=== PATIENT | female | born 1950 | race African-American/Black ===

== ENCOUNTER 2017-07-03 07:50 | Outpatient (CLI) | payer MEDICARE, MEDICAID ==
--- NOTE | 2017-07-03 10:26 | ULT ---
BILATERAL RENAL ULTRASOUND: Date: 07/03/17 COMPARISON: None. HISTORY: Hematuria. TECHNIQUE: Multiplanar Charlton scale sonographic imaging of the kidneys and urinary bladder obtained. FINDINGS: Right kidney measures 10.0 x 5.2 x 5.1 cm. Left kidney measures 10.6 x 5.0 x 5.3 cm. There is no renal mass, hydronephrosis, or renal stone seen on either side. Provided images of the urinary bladder appear grossly unremarkable. Secondary to patient body habitus, detailed assessment of both kidneys and the urinary bladder is so mewhat limited. IMPRESSION: Grossly unremarkable renal ultrasound. POS: [facility]
== END 2017-07-03 07:51 | disposition home or self-care (01) ==
LOC: ULT 07:50
PROVIDERS: ATTEND Family Medicine
DX: R31.29 Other microscopic hematuria (principal)
CPT/HCPCS: 76770

== ENCOUNTER 2017-07-17 13:03 | Outpatient (CLI) | payer MEDICARE, MEDICAID ==
--- NOTE | 2017-07-17 18:55 | ULT ---
PELVIC SONOGRAM TRASABDOMINAL AND TRANSVAGINAL IMAGING: History: Microhematuria. FINDINGS: Urinary bladder is decompressed. Uterus has a heterogeneous echotexture and is 8.7 cm in length. Endo metrium is 1.0 cm thickness. Fluid distending the cervical canal is 0.6 cm in AP diameter. No free fluid is evident within the pelvis. Neither ovary is well visualized with transabdominal or t ransvaginal imaging. No adnexal masses are apparent. IMPRESSION: Fluid within the cervical canal. Cause is not evident. No other significant abnormalities are demonst rated. POS: [facility]
== END 2017-07-17 13:04 | disposition home or self-care (01) ==
LOC: ULT 13:03
PROVIDERS: ATTEND Family Medicine
DX: R31.29 Other microscopic hematuria (principal)
CPT/HCPCS: 76856

== ENCOUNTER 2018-02-24 03:58 | Emergency (ER) | payer MEDICARE, MEDICAID ==
[2018-02-24 04:29] LABS: #Monocytes 0.2 thou/uL (0.11-0.59); #Neutrophils 2.3 thou/uL (1.40-6.50); %Basophils 0.3 % (0.0-1.0); %Eosinophils 0.9 % (0.0-10.0); %Lymphocytes 28.2 % (21.0-51.0); %Monocytes 6.4 % (0.0-10.0); %Neutrophils 64.2 % (42.0-75.0); Hemoglobin 10.9 g/dL (12.0-16.0); Mean Corpuscular HGB CONC 32.8 g/dL (32.0-36.0); Mean Corpuscular Hemoglobin 28.4 pg (27.0-31.0); Mean Corpuscular Volume 86.7 fL (78.0-98.0); Platelet Count 122 thou/uL (130-400); RBC Distribution Width 15.1 % (11.5-14.5); Red Blood Cell (RBC) Count 3.83 mill/uL (4.20-5.40); White Blood Cell (WBC) Count 3.6 thou/uL (4.8-10.8)
[2018-02-24 05:34] LABS: Troponin I 0.016 ng/mL (< 0.028)
[2018-02-24 05:36] LABS: ALT (SGPT) 17 U/L (8-55); AST (SGOT) 19 U/L (5-34); Albumin 3.5 g/dL (3.4-4.8); Alkaline Phosphatase 90 U/L (40-150); Anion Gap 15 mmol/L (10-20); BUN (Urea Nitrogen) 46 mg/dL (9.8-20.1); Bilirubin, Total 0.3 mg/dL (0.2-1.2); CK (CPK) 179 U/L (29-168); Calc. Creatinine Clearance 0 mL/min (70-130); Calcium 9.1 mg/dL (7.8-10.44); Carbon Dioxide 22 mmol/L (23-31); Chloride 106 mmol/L (98-107); Estimated GFR-MDRD 20; Globulin 4.4 g/dL (2.4-3.5); Glucose 251 mg/dL (80-115); Lipase 22 U/L (8-78); Potassium 5.5 mmol/L (3.5-5.1); Protein, Total 7.9 g/dL (6.0-8.3); Sodium 137 mmol/L (136-145)
[2018-02-24] MEDS ORDERED: Insulin Regular 300 UNITS/3 ML VIAL ONE (06:09)
[2018-02-24] MEDS ORDERED: Furosemide 40 MG/4 ML VIAL ONE (06:09)
[2018-02-24] MEDS ORDERED: Dextrose 50% Abboject 50 ML SYRINGE ONE (06:09)
[2018-02-24 07:49] LABS: Anion Gap 12 mmol/L (10-20); BUN (Urea Nitrogen) 46 mg/dL (9.8-20.1); Calc. Creatinine Clearance 0 mL/min (70-130); Calcium 9.1 mg/dL (7.8-10.44); Carbon Dioxide 23 mmol/L (23-31); Chloride 106 mmol/L (98-107); Estimated GFR-MDRD 20; Glucose 289 mg/dL (80-115); Potassium 5.2 mmol/L (3.5-5.1); Sodium 136 mmol/L (136-145)
--- NOTE | 2018-02-24 08:21 | RAD ---
FRONTAL VIEW CHEST: COMPARISON: 10/11/15. INDICATION: Dyspnea. FINDINGS: Lungs are clear. Cardiac silhouette remains prominent. Added density of the body wall soft tissues does decrease penetration and limit sensitivity of evaluation. IMPRESSION: Stable chest. POS: [facility]
== END 2018-02-24 08:37 | disposition home or self-care (01) ==
LOC: ERS 03:58
DX: E11.22 Type 2 diabetes mellitus with diabetic chronic kidney disease (principal); I13.2 Hypertensive heart and chronic kidney disease with heart failure and with stage 5 chronic kidney disease, or end stage renal disease; I50.9 Heart failure, unspecified; N18.9 Chronic kidney disease, unspecified; E03.9 Hypothyroidism, unspecified; E87.5 Hyperkalemia; Z79.4 Long term (current) use of insulin; Z79.899 Other long term (current) drug therapy
CPT/HCPCS: 36415; 71045; 80053; 82553; 83690; 83880; 84484; 85025; 93005; 96374; 96375; J1815; J1940

== ENCOUNTER 2020-06-04 12:08 | Inpatient (IN) | payer MEDICARE, MEDICAID ==
--- NOTE | 2020-06-04 13:03 | RAD ---
XR Chest 1 View Portable HISTORY: CHF COMPARISON: 02/24/2018 FINDINGS: The heart size is enlarged but stable. The lungs are well expanded without focal areas of c onsolidation, magda pulmonary edema pneumothorax or pleural effusions. IMPRESSION: No radiographic evidence of acute cardiopulmonary process.
[2020-06-04 13:09] LABS: #Eosinphils 0.1 thou/uL (0.0-0.7); #Lymphocytes 0.4 thou/uL (1.20-3.40); #Monocytes 0.3 thou/uL (0.11-0.59); #Neutrophils 2.5 thou/uL (1.40-6.50); %Basophils 0.8 % (0.0-1.0); %Eosinophils 1.6 % (0.0-10.0); %Lymphocytes 11.3 % (21.0-51.0); %Monocytes 9.7 % (0.0-10.0); %Neutrophils 76.6 % (42.0-75.0); Hemoglobin 12.7 g/dL (12.0-16.0); Mean Corpuscular HGB CONC 33.3 g/dL (32.0-36.0); Mean Corpuscular Hemoglobin 28.9 pg (27.0-31.0); Mean Corpuscular Volume 86.6 fL (78.0-98.0); Mean Platelet Volume 10.6 fL (7.4-10.4); Platelet Count 104 thou/uL (130-400); Red Blood Cell (RBC) Count 4.39 mill/uL (4.20-5.40); White Blood Cell (WBC) Count 3.2 thou/uL (4.8-10.8)
[2020-06-04 13:49] LABS: ALT (SGPT) Less than 7 U/L (8-55); AST (SGOT) 11 U/L (5-34); Albumin 3.3 g/dL (3.4-4.8); Alkaline Phosphatase 71 U/L (40-110); Anion Gap 12 mmol/L (10-20); BUN (Urea Nitrogen) 24 mg/dL (9.8-20.1); Bilirubin, Total 0.9 mg/dL (0.2-1.2); Calc. Creatinine Clearance 0 mL/min (70-130); Calcium 8.7 mg/dL (7.8-10.44); Carbon Dioxide 24 mmol/L (23-31); Chloride 106 mmol/L (98-107); Estimated GFR-MDRD 17; Globulin 3.4 g/dL (2.4-3.5); Glucose 181 mg/dL (80-115); Potassium 4.6 mmol/L (3.5-5.1); Protein, Total 6.7 g/dL (6.0-8.3); Sodium 137 mmol/L (136-145)
[2020-06-04 14:18] LABS: CKMB 0.8 ng/mL (0-6.6)
[2020-06-04] MEDS ORDERED: Furosemide 40 MG/4 ML VIAL ONE (14:25)
[2020-06-04 15:26] LABS: Bacteria/HPF 4+ HPF (None Seen); Bilirubin Negative (Negative); Blood, Urine 3+ (Negative); Clarity Turbid (Clear); Glucose, Urine (Dipstick) Normal (Negative); Ketone, Urine Negative (Negative); Leukocyte 500 Leu/uL (Negative); Nitrite Negative (Negative); Protein, Urine (Dipstick) 70 mg/dL (Neg-Trace); RBC/HPF 21-50 HPF (0-3); Specific Gravity, Urine 1.007 (1.002-1.036); Squamous Epithelial 0-3 HPF (0-3); Urobilinogen Normal mg/dL (Less than 2); WBC/HPF Greater than 50 HPF (0-3); pH, Urine 5.5 (5.0-9.0)
--- NOTE | 2020-06-04 16:22 | PDOC.HHP ---
Hospitalist HPI - History of Present Illness Bilateral leg swelling History of Present Illness: This is a 69-year-old female patient with a history of CHF, diabetes mellitus type 2, hypertension hypothyroidism and blindness who presents with worsening swelling of her feet bilaterally and easy fatigability. Symptoms started for the past couple of weeks but however have become worse over the past 2 days. She however denies any associated chest pain or shortness of breath. No orthopnea or paroxysmal nocturnal dyspnea. She notes having been on Lasix however has not been consistently taking it. She she also notes partial adherence to her salt restriction. She however does not smoke or drink. She complains of ongoing constipation however denies any dysuria frequency. She is legally blind from diabetic retinopathy. On presentation blood pressure was 152/98, pulse 80, respiratory rate 20, temp erature 97, saturating 95 on room air. Troponin was 0.084, BNP was 3871, urine was cloudy with WBC 750, nitrates negative and bacteria 4+. BUN was elevated at 24 with creatinine at 2.75 which is her baseline. She had a leukocytosis of 3.2, platelet count of 104. Chest x-ray showed no radiological evidence of cardiopulmonary process. She received 40 mg Lasix in the ED prior to hospitalist consultation for admission. Hospitalist ROS - Review of Systems Constitutional: denies: fever, chills, sweats Eyes: reports: vision change. denies: pain Cardiovascular: denies: chest pain, palpitations, orthopnea, paroxysmal noc. dyspnea Gastrointestinal: reports: constipation. denies: nausea, vomiting, abdominal pain Genitourinary: denies: dysuria, frequency, incontinence - Medication Medications: has to be verified. Allergies: No known drug allergies Hospitalist History - Past Medical History Cardiac: reports: CHF Endocrine: reports: Diabetes Other Medical History: Blindness - Past Surgical History Past Surgical History: reports: Cholecystectomy - Family History Family History: reports: diabetes mellitus - Social History Smoking Status: Current every day smoker Alcohol: reports: None Activity level: wheelchair bound - Exam General Appearance: awake alert General - other findings: In no acute distress Eye - other findings: Blind bilaterally Heart: RRR, no murmur, no gallops, no rubs Respiratory: no wheezes, no rales, no ronchi, no tachypnea Gastrointestinal: soft, non-tender, non-distended, normal bowel sounds Extremities: no cyanosis, no clubbing Extremities - other findings: 2+ bilateral pitting pedal edema Neurological: cranial nerve grossly intact, no weakness Neurological - other findings: Bilateral blind Psychiatric: A&O x 3 Hospitalist Results - Labs Result Diagrams: 06/04/20 12:42 06/04/20 12:42 Lab results: WBC 3.2 thou/uL (4.8-10.8) L 06/04/20 12:42 Hgb 12.7 g/dL (12.0-16.0) 06/04/20 12:42 Hct 38.0 % (36.0-47.0) 06/04/20 12:42 MCV 86.6 fL (78.0-98.0) 06/04/20 12:42 Plt Count 104 thou/uL (130-400) L 06/04/20 12:42 Neutrophils % 76.6 % (42.0-75.0) H 06/04/20 12:42 Sodium 137 mmol/L (136-145) 06/04/20 12:42 Potassium 4.6 mmol/L (3.5-5.1) 06/04/20 12:42 Chloride 106 mmol/L (98-107) 06/04/20 12:42 Carbon Dioxide 24 mmol/L (23-31) 06/04/20 12:42 BUN 24 mg/dL (9.8-20.1) H 06/04/20 12:42 Creatinine 2.75 mg/dL (0.6-1.1) H 06/04/20 12:42 Glucose 181 mg/dL (80-115) H 06/04/20 12:42 Calcium 8.7 mg/dL (7.8-10.44) 06/04/20 12:42 Total Bilirubin 0.9 mg/dL (0.2-1.2) 06/04/20 12:42 AST 11 U/L (5-34) 06/04/20 12:42 ALT Less than 7 U/L (8-55) L 06/04/20 12:42 Alkaline Phosphatase 71 U/L (40-110) 06/04/20 12:42 CK-MB (CK-2) 0.8 ng/mL (0-6.6) 06/04/20 12:42 Troponin I 0.084 ng/mL (< 0.028) H 06/04/20 12:42 B-Natriuretic Peptide 3871.7 pg/mL (0-100) H 06/04/20 12:42 Serum Total Protein 6.7 g/dL (6.0-8.3) 06/04/20 12:42 Albumin 3.3 g/dL (3.4-4.8) L 06/04/20 12:42 Urine Ketones Negative mg/dL (Negative) 06/04/20 14: Urine Blood 3+ (Negative) A 06/04/20 14:28 Urine Nitrite Negative (Negative) 06/04/20 14:28 Ur Leukocyte Esterase 500 Lang/uL (Negative) A 06/04/20 14: Urine RBC 21-50 HPF (0-3) A 06/04/20 14: Urine WBC Greater than 50 HPF (0-3) A 06/04/20 14:28 Ur Squamous Epith Cells 0-3 HPF (0-3) 06/04/20 14:28 Urine Bacteria 4+ HPF (None Seen) A 06/04/20 14:28 Hospitalist H&P A/P - Plan Plan: This a 69-year-old female patient with a history of diabetes mellitus, CHF presenting with increasing swelling of her legs bilaterally with increasing fatigability. She will be admitted for heart failure exacerbation and cardiac monitoring Acute heart failure exacerbation History of heart failure however no recent echo on file Continue diuresis on Lasix Monitor electrolytes Daily weights Input output monitoring Low-sodium diet Echocardiogram in a.m. resume guidline directed meds once verified and indicated Consider cardiology consult in a.m. if indicated Leukopeniamild WBC 3.2 Unclear etiologywe will repeat CBC in the a.m. thrombocytopenia Platelet 104 Repeat BMP in a.m. Hypertension Start valsartan Restart other home BP medications once verified Blood pressure monitoring. Blindness Secondary to diabetes mellitusretinopathy Hypothyroidism TSH TSH 1.27 on 10/01/2019 Diabetes mellitus A1c 7.3 on 10/01/2019 Start correctional insulin -CKD Stable No acute VT prophylaxisLovenox
[2020-06-04] MEDS ORDERED: Dextrose 5% in Water 1,000 ML IV PRN (17:30)
[2020-06-04] MEDS ORDERED: Dextrose 50% Abboject 50 ML SYRINGE SLOW IVP PRN (17:30)
[2020-06-04] MEDS: Heparin 5,000 UNITS/ML VIAL SC SCH (22:33)
[2020-06-05] MEDS: Bisacodyl 5 MG TAB PO PRN (04:05)
[2020-06-05 04:17] LABS: #Eosinphils 0.1 thou/uL (0.0-0.7); #Lymphocytes 0.7 thou/uL (1.20-3.40); #Monocytes 0.4 thou/uL (0.11-0.59); #Neutrophils 1.7 thou/uL (1.40-6.50); %Basophils 0.4 % (0.0-1.0); %Eosinophils 2.2 % (0.0-10.0); %Lymphocytes 23.4 % (21.0-51.0); %Monocytes 14.4 % (0.0-10.0); %Neutrophils 59.6 % (42.0-75.0); Hemoglobin 11.8 g/dL (12.0-16.0); Mean Corpuscular HGB CONC 31.3 g/dL (32.0-36.0); Mean Corpuscular Hemoglobin 27.2 pg (27.0-31.0); Mean Platelet Volume 10.1 fL (7.4-10.4); Platelet Count 98 thou/uL (130-400); RBC Distribution Width 16.9 % (11.5-14.5); Red Blood Cell (RBC) Count 4.33 mill/uL (4.20-5.40); White Blood Cell (WBC) Count 2.9 thou/uL (4.8-10.8)
[2020-06-05 04:37] LABS: Anion Gap 13 mmol/L (10-20); BUN (Urea Nitrogen) 23 mg/dL (9.8-20.1); Calc. Creatinine Clearance 48 mL/min (70-130); Calcium 9.1 mg/dL (7.8-10.44); Carbon Dioxide 24 mmol/L (23-31); Chloride 106 mmol/L (98-107); Estimated GFR-MDRD 18; Glucose 116 mg/dL (80-115); Potassium 4.1 mmol/L (3.5-5.1); Sodium 139 mmol/L (136-145)
[2020-06-05] MEDS: Furosemide 40 MG/4 ML VIAL SLOW IVP SCH ×2 (05:56→14:37)
[2020-06-05] MEDS: Magnesium Oxide 250 MG TAB PO SCH (08:40)
[2020-06-05] MEDS: Carvedilol 6.25 MG TAB PO SCH (08:40)
[2020-06-05] MEDS: Clopidogrel Bisulfate 75 MG TAB PO SCH (08:40)
[2020-06-05] MEDS: Heparin 5,000 UNITS/ML VIAL SC SCH ×3 (08:40→21:50)
[2020-06-05] MEDS ORDERED: Valsartan 80 MG TAB PO SCH (09:00)
[2020-06-05] MEDS: HumuLIN 70/30 (300 UNITS/3 ML VIAL) SC SCH ×2 (09:30→21:52)
[2020-06-05] MEDS: HumaLOG 300 UNITS/3 ML VIAL SC PRN (11:35)
[2020-06-05] MEDS ORDERED: Fleet Enema 133 ML BOT PR SCH (12:45)
--- NOTE | 2020-06-05 12:54 | PDOC.HOSPP ---
- Subjective Encounter Date: 06/05/20 Encounter Time: 12:52 Subjective: Ms. Yepez was seen today in follow-up of lower extremity edema. Her major concern now is constipation. She is complaining of abdominal cramping, and not being able to pass stool, but feels a strong urge. - Objective Vital Signs & Weight: Vital Signs (12 hours) Temp Pulse Resp BP Pulse Ox 06/05/20 11:28 97.8 F 76 18 137/81 96 06/05/20 07:30 97.7 F 70 18 158/72 H 97 06/05/20 04:00 97.7 F 68 20 159/76 H 98 Weight Weight 322 lb I&O: 06/04/20 06/05/20 06/06/20 06:59 06:59 06:59 Intake Total 180 Output Total 550 Balance -370 Result Diagrams: 06/05/20 04:01 06/05/20 04:01 Additional Labs: Accuchecks 06/05/20 06/05/20 06/04/20 10:34 05:58 21:57 POC Glucose 157 H 112 H 105 H Hospitalist ROS - Medication Medications: Active Medications Generic Name Dose Route Start Last Admin Trade Name Freq PRN Reason Stop Dose Admin Bisacodyl 5 mg 06/04/20 23:06 06/05/20 04:05 Bisacodyl 5 Mg Tab PO 5 mg DAILYPRN PRN Administration Constipation Carvedilol 6.25 mg 06/05/20 09:00 06/05/20 08:40 Carvedilol 6.25 Mg Tab PO 6.25 mg DAILY GLENN Administration Clopidogrel Bisulfate 75 mg 06/05/20 09:00 06/05/20 08:40 Clopidogrel Bisulfate 75 Mg Tab PO 75 mg DAILY GLENN Administration Furosemide 40 mg 06/05/20 06:00 06/05/20 05:56 Furosemide 40 Mg/4 Ml Vial SLOW IVP 40 mg 0600,1400 GLENN Administration Heparin Sodium (Porcine) 5,000 units 06/04/20 21:00 06/05/20 08:40 Heparin 5,000 Units/Ml Vial SC Not Given TID GLENN Insulin Human Isoph/Insulin Regular 10 units 06/05/20 09:00 06/05/20 09:30 Humulin 70/30 (300 Units/3 Ml Vial) SC 10 unit BID GLENN Administration Insulin Human Lispro 0 units 06/04/20 17:30 06/05/20 11:35 Humalog 300 Units/3 Ml Vial SC 2 unit .MILD SLIDING SCALE PRN Administration Mild Correctional Scale Magnesium Oxide 250 mg 06/05/20 09:00 06/05/20 08:40 Magnesium Oxide 250 Mg Tab PO 250 mg DAILY GLENN Administration Sodium Biphosphate/Sodium Phosphate 133 ml 06/05/20 12:45 06/05/20 12:49 Fleet Enema 133 Ml Bot MO 06/05/20 14:45 133 ml NOW GLENN Administration - Exam Eye: PERRL, anicteric sclera Heart: RRR, no murmur, no gallops, no rubs, normal peripheral pulses Respiratory: CTAB, no wheezes, no rales, no ronchi, normal chest expansion Gastrointestinal: soft, non-tender, non-distended, normal bowel sounds, no palpa ble masses, no hepatomegaly Extremities: 1+ LE edema Hosp A/P (1) Constipation Code(s): K59.00 - CONSTIPATION, UNSPECIFIED Status: Acute (2) Acute on chronic systolic (congestive) heart failure Code(s): I50.23 - ACUTE ON CHRONIC SYSTOLIC (CONGESTIVE) HEART FAILURE Status: Acute (3) Blindness - both eyes Code(s): H54.0 - BLINDNESS, BOTH EYES * DO NOT USE * Status: Chronic (4) Diabetes mellitus type 2 Code(s): E11.9 - TYPE 2 DIABETES MELLITUS WITHOUT COMPLICATIONS Status: Acute (5) Chronic kidney disease, stage 4 (severe) Code(s): N18.4 - CHRONIC KIDNEY DISEASE, STAGE 4 (SEVERE) Status: Chronic (6) UTI (urinary tract infection) Status: Acute - Plan * Acute on chronic systolic heart failure- She does not know what her baseline EF is. She does not have a defibrillator- Will consult Cardiology * She normally sees Dr. Mcclelland- will request his records * Constipation-tells me this is chronic, nd she has had a colonoscopy before- will treat symptomatically * DM- blood glucose is stable * UTI- will start Rocephin, and await culture results
[2020-06-05] MEDS: cefTRIAXone\\ROCEPHIN 1 GM in Sodium Chloride 0.9% 100 ML IVPB SCH (14:36)
[2020-06-05] MEDS: Polyethylene Glycol 3350 17 GM Packet PO PRN (14:38)
--- NOTE | 2020-06-05 18:43 | CON ---
DATE OF CONSULTATION: 06/05/2020 REASON FOR CONSULTATION: Congestive heart failure, systolic, acute on chronic. PRIMARY ANDROID ARCHITECT: Dr. Rob Menendez. HISTORY OF PRESENT ILLNESS: Ms. Yepez is a very pleasant 69-year-old woman. The patient came to the hospital with difficulty breathing. The patient had been doing fairly well, but then she was aware that her renal function was impaired. She apparently stopped taking the diuretics a couple of weeks ago. She came to the hospital with increasing shortness of breath, markedly increased BNP, and urinary tract infection with 4+ bacteria. BUN is 24, creatinine 2.75, which is near her baseline. Chest x-ray showed no acute changes. She received Lasix in the ED. She had no chest pain or pressure. PAST HISTORY: 1. She said she has had about 3 heart catheterizations, has no significant coronary artery disease. 2. Congestive heart failure. 3. Diabetes. 4. Blindness. SURGICAL HISTORY: Previous cholecystectomy. FAMILY HISTORY: Diabetes. SOCIAL HISTORY: She smokes. Alcohol, none. REVIEW OF SYSTEMS: CONSTITUTIONAL: No significant weight gain. She has lost about 60 pounds over the last several years. VISION: No changes. HEARING: No changes. PULMONARY: No cough or wheezing. GASTROINTESTINAL: No nausea, vomiting, or diarrhea. SKIN: No rashes. NEUROLOGIC: No unilateral weakness or numbness. PSYCHIATRIC: No unusual depression or anxiety. PHYSICAL EXAMINATION: GENERAL: This is a pleasant elderly woman, resting comfortably. VITAL SIGNS: Blood pressure 137/80, pulse 76 and regular. LUNGS: Clear. CARDIAC: Normal S1, normal S2. ABDOMEN: Obese, nontender. EXTREMITIES: Warm, dry. No clubbing. No cyanosis. There is wljr-[id number] edema. PERTINENT LABORATORY DATA: Creatinine is 2.6, which is stable. Her GFR is 18. BNP 3871.7. DIAGNOSTIC STUDIES: Echocardiogram, technically difficult. The ejection fraction is estimated about 20% to 25%. Global hypokinesis. Moderate to severely elevated pulmonary pressure. EKG 12-lead is not on the chart from environmental monitoring specialist, looks like she likely has a left bundle-branch block. We will try to locate her EKG. ASSESSMENT: 1. Congestive heart failure, systolic, acute on chronic. 2. Stage IV renal failure. 3. Morbid obesity. 4. What looks to be likely a left bundle-branch block on EKG, but the official EKG is not on the chart. PLAN: 1. We will try to locate her recent EKG. 2. Continue diuretics. 3. Need to consider defibrillator implantation if she has a left bundle-branch block, consideration for a biventricular device. 4. CASS inhibitors contraindicated with stage IV renal failure. Hopefully home tomorrow. She will need to follow up with Dr. Menendez. ADDENDUM EKG LOCATED HAS LBBB, CANDIDATE FOR BI VENTRICULAR AICD, NEEDS UTI TREATED FIRST, WILL DISCUSS KELTON MUNOZ. Job ID: [id number] EBENEZER
[2020-06-05] MEDS: Senokot 8.6 MG TAB PO PRN (21:47)
[2020-06-05] MEDS: Atorvastatin Calcium 10 MG TAB PO SCH (21:47)
[2020-06-05] MEDS: Nystatin Powder 15 GM BOT TOP PRN (21:57)
[2020-06-06] MEDS: Levothyroxine Sodium 50 MCG TAB PO SCH (06:16)
[2020-06-06] MEDS: Furosemide 40 MG/4 ML VIAL SLOW IVP SCH ×2 (06:16→15:38)
[2020-06-06] MEDS: Heparin 5,000 UNITS/ML VIAL SC SCH ×3 (08:25→21:54)
[2020-06-06] MEDS: Carvedilol 6.25 MG TAB PO SCH ×2 (08:37→17:27)
[2020-06-06] MEDS: Clopidogrel Bisulfate 75 MG TAB PO SCH (08:37)
[2020-06-06] MEDS: Magnesium Oxide 250 MG TAB PO SCH (08:37)
[2020-06-06] MEDS: Nystatin Powder 15 GM BOT TOP PRN ×2 (08:38→21:52)
[2020-06-06] MEDS: Bisacodyl 5 MG TAB PO PRN (08:41)
--- NOTE | 2020-06-06 11:04 | EKG ---
Test Reason : Blood Pressure : / mmHG Vent. Rate : 076 BPM Atrial Rate : 076 BPM P-R Int : 132 ms QRS Dur : 166 ms QT Int : 470 ms P-R-T Axes : 054 003 178 degrees QTc Int : 528 ms Normal sinus rhythm Left bundle branch block Abnormal ECG No change since 2017 Confirmed by YASH SANDOVAL DO ([id number]), news editor EMILI DURAN ([id number]) on 06/06/2020 11:04:35 AM Referred By: Confirmed By:YASH SANDOVAL DO
--- NOTE | 2020-06-06 12:17 | PDOC.HOSPP ---
- Subjective Encounter Date: 06/06/20 Encounter Time: 09:20 Subjective: feels better, her edema in the legs has resolved no chest pain walks with walker at home - Objective Vital Signs & Weight: Vital Signs (12 hours) Temp Pulse Resp BP Pulse Ox 06/06/20 08:00 96 06/06/20 07:47 97.9 F 75 22 H 181/87 H 96 06/06/20 04:00 98.6 F 75 18 168/74 H 96 Weight Admit Weight 322 lb Weight 319 lb 3.2 oz I&O: 06/05/20 06/06/20 06/07/20 06:59 06:59 06:59 Intake Total 180 350 Output Total 550 450 Balance -370 -100 Result Diagrams: 06/05/20 04:01 06/05/20 04:01 Additional Labs: Accuchecks 06/06/20 06/06/20 06/05/20 06:26 01:47 21:09 POC Glucose 152 H 93 125 H 06/05/20 17:03 POC Glucose 132 H Hospitalist ROS - Medication Medications: Active Medications Generic Name Dose Route Start Last Admin Trade Name Freq PRN Reason Stop Dose Admin Atorvastatin Calcium 10 mg 06/05/20 21:00 06/05/20 21:47 Atorvastatin Calcium 10 Mg Tab PO 10 mg HS GLENN Administration Bisacodyl 5 mg 06/04/20 23:06 06/06/20 08:41 Bisacodyl 5 Mg Tab PO 5 mg DAILYPRN PRN Administration Constipation Clopidogrel Bisulfate 75 mg 06/05/20 09:00 06/06/20 08:37 Clopidogrel Bisulfate 75 Mg Tab PO 75 mg DAILY GLENN Administration Furosemide 40 mg 06/05/20 06:00 06/06/20 06:16 Furosemide 40 Mg/4 Ml Vial SLOW IVP 40 mg 0600,1400 GLENN Administration Heparin Sodium (Porcine) 5,000 units 06/04/20 21:00 06/06/20 08:25 Heparin 5,000 Units/Ml Vial SC Not Given TID GLENN Ceftriaxone Sodium 1 gm/ 100 mls @ 200 mls/hr 06/05/20 13:00 06/05/20 14:36 Sodium Chloride IVPB 100 mls Q24HR GLENN Administration Insulin Human Isoph/Insulin Regular 10 units 06/05/20 09:00 06/05/20 21:52 Humulin 70/30 (300 Units/3 Ml Vial) SC Not Given BID [facility] Insulin Human Lispro 0 units 06/04/20 17:30 06/05/20 11:35 Humalog 300 Units/3 Ml Vial SC 2 unit .MILD SLIDING SCALE PRN Administration Mild Correctional Scale Levothyroxine Sodium 50 mcg 06/06/20 06:00 06/06/20 06:16 Levothyroxine Sodium 50 Mcg Tab PO 50 mcg 0600 GLENN Administration Magnesium Oxide 250 mg 06/05/20 09:00 06/06/20 08:37 Magnesium Oxide 250 Mg Tab PO 250 mg DAILY GLENN Administration Nystatin 0 gm 06/04/20 22:59 06/06/20 08:38 Nystatin Powder 15 Gm Bot TOP 1 applic BID PRN Administration Topical Irritations Polyethylene Glycol 17 gm 06/05/20 12:37 06/05/20 14:38 Polyethylene Glycol 3350 17 Gm Packet PO 17 gm DAILYPRN PRN Administration Constipation Senna 2 tab 06/04/20 23:06 06/05/20 21:47 Senokot 8.6 Mg Tab PO 2 tab HSPRN PRN Administration Constipation - Exam General Appearance: awake alert Eye: PERRL, anicteric sclera ENT: no oropharyngeal lesions, moist mucosa Neck: supple, no JVD Heart: RRR, no murmur Respiratory: no wheezes, no rales Gastrointestinal: soft, non-tender, non-distended, normal bowel sounds Extremities: no cyanosis, no edema Neurological: cranial nerve grossly intact, no focal deficits Psychiatric: normal affect, A&O x 3 Hosp A/P (1) Acute on chronic systolic (congestive) heart failure Code(s): I50.23 - ACUTE ON CHRONIC SYSTOLIC (CONGESTIVE) HEART FAILURE Status: Acute (2) HTN (hypertension) Code(s): I10 - ESSENTIAL (PRIMARY) HYPERTENSION Status: Chronic Qualifiers: Hypertension type: essential hypertension Qualified Code(s): I10 - Essential (primary) hypertension (3) Morbid obesity with BMI of 50.0-59.9, adult Code(s): E66.01 - MORBID (SEVERE) OBESITY DUE TO EXCESS CALORIES; Z68.43 - BODY MASS INDEX [BMI] 50.0-59.9, ADULT Status: Chronic (4) UTI (urinary tract infection) Status: Acute Qualifiers: Urinary tract infection type: acute cystitis Hematuria presence: without hematuria Qualified Code(s): N30.00 - Acute cystitis without hematuria (5) Chronic kidney disease, stage 4 (severe) Code(s): N18.4 - CHRONIC KIDNEY DISEASE, STAGE 4 (SEVERE) Status: Chronic (6) Diabetes mellitus type 2 Code(s): E11.9 - TYPE 2 DIABETES MELLITUS WITHOUT COMPLICATIONS Status: Chronic (7) Blindness - both eyes Code(s): H54.0 - BLINDNESS, BOTH EYES * DO NOT USE * Status: Chronic - Plan is on lasix, coreg, plavix, 70/30 insulin, lipitor and ceftriaxone d/w patient and daughter over phone, they both will discuss and let us know abou t aicd/barrel header uti with klebsiella, will continue ceftriaxone for now, on dc will change to cipro she needs to mobilize more, has bmi of 53 she had seen 3 weeks back per patient hemostable may switch to oral lasix if patient is planning to get aicd/barrel header and contrast.
[2020-06-06] MEDS: HumuLIN 70/30 (300 UNITS/3 ML VIAL) SC SCH ×2 (12:34→21:54)
[2020-06-06] MEDS: Milk Of Magnesia 30 ML UDCUP PO PRN (12:35)
[2020-06-06] MEDS: cefTRIAXone\\ROCEPHIN 1 GM in Sodium Chloride 0.9% 100 ML IVPB SCH (15:37)
[2020-06-06] MEDS ORDERED: Carvedilol 6.25 MG TAB PO SCH (17:00)
[2020-06-06] MEDS: HumaLOG 300 UNITS/3 ML VIAL SC PRN (17:27)
[2020-06-06] MEDS: Polyethylene Glycol 3350 17 GM Packet PO PRN (17:27)
[2020-06-06] MEDS: Atorvastatin Calcium 10 MG TAB PO SCH (21:49)
[2020-06-06] MEDS ORDERED: Sodium Chloride 0.9% 10 ML ONE (21:53)
[2020-06-07] MEDS ORDERED: Sodium Chloride 0.9% 10 ML ONE (05:53)
[2020-06-07] MEDS: Levothyroxine Sodium 50 MCG TAB PO SCH (06:01)
[2020-06-07] MEDS: Furosemide 40 MG/4 ML VIAL SLOW IVP SCH ×2 (06:01→14:28)
[2020-06-07 07:43] LABS: #Eosinphils 0.1 thou/uL (0.0-0.7); #Lymphocytes 0.7 thou/uL (1.20-3.40); #Monocytes 0.8 thou/uL (0.11-0.59); #Neutrophils 4.8 thou/uL (1.40-6.50); %Basophils 0.1 % (0.0-1.0); %Lymphocytes 10.5 % (21.0-51.0); %Monocytes 12.8 % (0.0-10.0); %Neutrophils 75.6 % (42.0-75.0); Hemoglobin 11.7 g/dL (12.0-16.0); Mean Corpuscular Hemoglobin 27.6 pg (27.0-31.0); Mean Corpuscular Volume 86.4 fL (78.0-98.0); Mean Platelet Volume 10.5 fL (7.4-10.4); Platelet Count 105 thou/uL (130-400); Red Blood Cell (RBC) Count 4.24 mill/uL (4.20-5.40); White Blood Cell (WBC) Count 6.3 thou/uL (4.8-10.8)
[2020-06-07 07:56] LABS: Anion Gap 13 mmol/L (10-20); BUN (Urea Nitrogen) 29 mg/dL (9.8-20.1); Calc. Creatinine Clearance 49 mL/min (70-130); Calcium 8.6 mg/dL (7.8-10.44); Carbon Dioxide 26 mmol/L (23-31); Chloride 103 mmol/L (98-107); Estimated GFR-MDRD 19; Glucose 168 mg/dL (80-115); Potassium 4.4 mmol/L (3.5-5.1); Sodium 138 mmol/L (136-145)
[2020-06-07] MEDS: Carvedilol 6.25 MG TAB PO SCH ×2 (09:51→15:33)
[2020-06-07] MEDS: Magnesium Oxide 250 MG TAB PO SCH (09:52)
[2020-06-07] MEDS: Clopidogrel Bisulfate 75 MG TAB PO SCH (09:52)
[2020-06-07] MEDS: HumuLIN 70/30 (300 UNITS/3 ML VIAL) SC SCH ×2 (09:53→22:01)
[2020-06-07] MEDS: Bisacodyl 5 MG TAB PO PRN (09:57)
[2020-06-07] MEDS: Heparin 5,000 UNITS/ML VIAL SC SCH ×3 (10:18→21:05)
--- NOTE | 2020-06-07 11:44 | PDOC.HOSPP ---
- Subjective Encounter Date: 06/07/20 Encounter Time: 09:45 Subjective: sob is better thinks she still has lot of hard stool inside, some came out with milk of magnesia yesterday no nausea or abd pain says she is amb in room - Objective Vital Signs & Weight: Vital Signs (12 hours) Temp Pulse Resp BP BP Pulse Ox 06/07/20 11:05 97.7 F 77 16 147/89 H 99 06/07/20 09:51 166/70 H 06/07/20 07:20 99.1 F 73 16 160/72 H 97 06/07/20 04:45 99.0 F 75 20 150/78 H 97 Weight Admit Weight 322 lb Weight 318 lb I&O: 06/06/20 06/07/20 06/08/20 06:59 06:59 06:59 Intake Total 350 880 Output Total 450 750 Balance -100 130 Result Diagrams: 06/07/20 07:19 06/07/20 07:19 Additional Labs: Accuchecks 06/07/20 06/07/20 06/06/20 10:49 09:50 20:21 POC Glucose 159 H 154 H 179 H 06/06/20 16:32 POC Glucose 191 H Hospitalist ROS - Medication Medications: Active Medications Generic Name Dose Route Start Last Admin Trade Name Freq PRN Reason Stop Dose Admin Atorvastatin Calcium 10 mg 06/05/20 21:00 06/06/20 21:49 Atorvastatin Calcium 10 Mg Tab PO 10 mg HS GLENN Administration Bisacodyl 5 mg 06/04/20 23:06 06/07/20 09:57 Bisacodyl 5 Mg Tab PO 5 mg DAILYPRN PRN Administration Constipation Carvedilol 6.25 mg 06/06/20 17:00 06/07/20 09:51 Carvedilol 6.25 Mg Tab PO 6.25 mg BID-WM GLENN Administration Clopidogrel Bisulfate 75 mg 06/05/20 09:00 06/07/20 09:52 Clopidogrel Bisulfate 75 Mg Tab PO 75 mg DAILY GLENN Administration Furosemide 40 mg 06/05/20 06:00 06/07/20 06:01 Furosemide 40 Mg/4 Ml Vial SLOW IVP 40 mg 0600,1400 GLENN Administration Heparin Sodium (Porcine) 5,000 units 06/04/20 21:00 06/07/20 10:18 Heparin 5,000 Units/Ml Vial SC 5,000 units TID GLENN Administration Insulin Human Isoph/Insulin Regular 10 units 06/05/20 09:00 06/07/20 09:53 Humulin 70/30 (300 Units/3 Ml Vial) SC Not Given BID GLENN Insulin Human Lispro 0 units 06/04/20 17:30 06/06/20 17:27 Humalog 300 Units/3 Ml Vial SC 2 unit .MILD SLIDING SCALE PRN Administration Mild Correctional Scale Levothyroxine Sodium 50 mcg 06/06/20 06:00 06/07/20 06:01 Levothyroxine Sodium 50 Mcg Tab PO 50 mcg 0600 GLENN Administration Magnesium Hydroxide 30 ml 06/06/20 11:49 06/06/20 12:35 Milk Of Magnesia 30 Ml Udcup PO 30 ml DAILYPRN PRN Administration Constipation Magnesium Oxide 250 mg 06/05/20 09:00 06/07/20 09:52 Magnesium Oxide 250 Mg Tab PO 250 mg DAILY GLENN Administration Nystatin 0 gm 06/04/20 22:59 06/06/20 21:52 Nystatin Powder 15 Gm Bot TOP 1 applic BID PRN Administration Topical Irritations Polyethylene Glycol 17 gm 06/05/20 12:37 06/06/20 17:27 Polyethylene Glycol 3350 17 Gm Packet PO 17 gm DAILYPRN PRN Administration Constipation Senna 2 tab 06/04/20 23:06 06/05/20 21:47 Senokot 8.6 Mg Tab PO 2 tab HSPRN PRN Administration Constipation - Exam General Appearance: awake alert Eye: PERRL, anicteric sclera ENT: no oropharyngeal lesions, moist mucosa Neck: supple, no JVD Heart: RRR, no murmur Respiratory: no wheezes, no rales Gastrointestinal: soft, non-tender, non-distended, normal bowel sounds Extremities: no cyanosis, 1+ LE edema Neurological: cranial nerve grossly intact, no focal deficits Psychiatric: normal affect, A&O x 3 Hosp A/P (1) Acute on chronic systolic (congestive) heart failure Code(s): I50.23 - ACUTE ON CHRONIC SYSTOLIC (CONGESTIVE) HEART FAILURE Status: Acute (2) HTN (hypertension) Code(s): I10 - ESSENTIAL (PRIMARY) HYPERTENSION Status: Chronic Qualifiers: Hypertension type: essential hypertension Qualified Code(s): I10 - Essential (primary) hypertension (3) Morbid obesity with BMI of 50.0-59.9, adult Code(s): E66.01 - MORBID (SEVERE) OBESITY DUE TO EXCESS CALORIES; Z68.43 - BODY MASS INDEX [BMI] 50.0-59.9, ADULT Status: Chronic (4) UTI (urinary tract infection) Status: Acute Qualifiers: Urinary tract infection type: acute cystitis Hematuria presence: without hematuria Qualified Code(s): N30.00 - Acute cystitis without hematuria (5) Chronic kidney disease, stage 4 (severe) Code(s): N18.4 - CHRONIC KIDNEY DISEASE, STAGE 4 (SEVERE) Status: Chronic (6) Diabetes mellitus type 2 Code(s): E11.9 - TYPE 2 DIABETES MELLITUS WITHOUT COMPLICATIONS Status: Chronic (7) Blindness - both eyes Code(s): H54.0 - BLINDNESS, BOTH EYES * DO NOT USE * Status: Chronic - Plan is on lasix, coreg, plavix, 70/30 insulin, lipitor and cipro d/w patient and daughter over phone, they both will discuss and let us know about aicd/[employer] 06/06/2020 uti with klebsiella. she needs to mobilize more, has bmi of 53, PT eval she had seen 3 weeks back per patient hemostable may switch to oral lasix if patient is planning to get aicd/[employer] and contrast will give a liter of golytely for severe constipation
[2020-06-07] MEDS ORDERED: Bisacodyl 10 MG SUPP PR PRN (11:46)
[2020-06-07] MEDS ORDERED: GoLYTELY 4,000 ml Bottle PO SCH (12:00)
[2020-06-07] MEDS: Cipro 250 MG TAB PO SCH (21:05)
[2020-06-07] MEDS: Atorvastatin Calcium 10 MG TAB PO SCH (21:05)
[2020-06-07] MEDS: Milk Of Magnesia 30 ML UDCUP PO PRN (21:47)
[2020-06-08 05:12] LABS: Anion Gap 13 mmol/L (10-20); BUN (Urea Nitrogen) 32 mg/dL (9.8-20.1); Calc. Creatinine Clearance 51 mL/min (70-130); Calcium 8.6 mg/dL (7.8-10.44); Carbon Dioxide 27 mmol/L (23-31); Chloride 100 mmol/L (98-107); Estimated GFR-MDRD 20; Glucose 162 mg/dL (80-115); Potassium 4.4 mmol/L (3.5-5.1); Sodium 136 mmol/L (136-145)
[2020-06-08] MEDS: Cipro 250 MG TAB PO SCH ×2 (05:48→21:15)
[2020-06-08] MEDS: Levothyroxine Sodium 50 MCG TAB PO SCH (05:48)
[2020-06-08] MEDS: Furosemide 40 MG/4 ML VIAL SLOW IVP SCH ×2 (05:48→14:27)
[2020-06-08] MEDS ORDERED: Sodium Chloride 0.9% 10 ML ONE ×2 (08:31→13:52)
[2020-06-08] MEDS: Magnesium Oxide 250 MG TAB PO SCH (09:58)
[2020-06-08] MEDS: Carvedilol 6.25 MG TAB PO SCH ×2 (09:58→17:54)
[2020-06-08] MEDS: Clopidogrel Bisulfate 75 MG TAB PO SCH (09:58)
[2020-06-08] MEDS: Heparin 5,000 UNITS/ML VIAL SC SCH ×3 (10:04→21:23)
[2020-06-08] MEDS: HumuLIN 70/30 (300 UNITS/3 ML VIAL) SC SCH ×2 (10:05→21:16)
[2020-06-08] MEDS: Polyethylene Glycol 3350 17 GM Packet PO PRN (10:13)
[2020-06-08] MEDS: Senokot 8.6 MG TAB PO PRN (10:13)
--- NOTE | 2020-06-08 13:54 | PDOC.HOSPP ---
- Subjective Encounter Date: 06/08/20 Encounter Time: 09:30 Subjective: has not been to ambulate or get up from laying down position by herself no sob or chest pain - Objective Vital Signs & Weight: Vital Signs (12 hours) Temp Pulse Pulse Pulse Resp BP BP 06/08/20 12:20 98.8 F 73 16 06/08/20 10:24 78 77 136/61 06/08/20 09:58 144/67 H 06/08/20 08:00 98.5 F 74 18 06/08/20 04:19 99.2 F 75 18 BP BP Pulse Ox 06/08/20 12:20 130/58 L 97 06/08/20 10:24 137/59 L 06/08/20 09:58 06/08/20 08:00 144/67 H 96 06/08/20 04:19 135/62 95 Weight Admit Weight 322 lb Weight 313 lb I&O: 06/07/20 06/08/20 06/09/20 06:59 06:59 06:59 Intake Total 880 240 Output Total 750 600 Balance 130 -360 Result Diagrams: 06/07/20 07:19 06/08/20 04:27 Additional Labs: Accuchecks 06/08/20 06/08/20 06/07/20 10:30 06:01 21:22 POC Glucose 165 H 166 H 167 H 06/07/20 06/07/20 06/06/20 16:40 05:36 10:38 POC Glucose 176 H 177 H 181 H Hospitalist ROS - Medication Medications: Active Medications Generic Name Dose Route Start Last Admin Trade Name Freq PRN Reason Stop Dose Admin Atorvastatin Calcium 10 mg 06/05/20 21:00 06/07/20 21:05 Atorvastatin Calcium 10 Mg Tab PO 10 mg HS GLENN Administration Bisacodyl 5 mg 06/04/20 23:06 06/07/20 09:57 Bisacodyl 5 Mg Tab PO 5 mg DAILYPRN PRN Administration Constipation Carvedilol 6.25 mg 06/06/20 17:00 06/08/20 09:58 Carvedilol 6.25 Mg Tab PO 6.25 mg BID-WM GLENN Administration Ciprofloxacin 250 mg 06/07/20 20:00 06/08/20 05:48 Cipro 250 Mg Tab PO 250 mg BID@06,1999 GLENN Administration Clopidogrel Bisulfate 75 mg 06/05/20 09:00 06/08/20 09:58 Clopidogrel Bisulfate 75 Mg Tab PO 75 mg DAILY GLENN Administration Furosemide 40 mg 06/05/20 06:00 06/08/20 05:48 Furosemide 40 Mg/4 Ml Vial SLOW IVP 40 mg 0600,1400 GLENN Administration Heparin Sodium (Porcine) 5,000 units 06/04/20 21:00 06/08/20 10:04 Heparin 5,000 Units/Ml Vial SC 5,000 units TID GLENN Administration Insulin Human Isoph/Insulin Regular 10 units 06/05/20 09:00 06/08/20 10:05 Humulin 70/30 (300 Units/3 Ml Vial) SC 10 unit BID GLENN Administration Insulin Human Lispro 0 units 06/04/20 17:30 06/06/20 17:27 Humalog 300 Units/3 Ml Vial SC 2 unit .MILD SLIDING SCALE PRN Administration Mild Correctional Scale Levothyroxine Sodium 50 mcg 06/06/20 06:00 06/08/20 05:48 Levothyroxine Sodium 50 Mcg Tab PO 50 mcg 0600 [facility] Administration Magnesium Hydroxide 30 ml 06/06/20 11:49 06/07/20 21:47 Milk Of Magnesia 30 Ml Udcup PO 30 ml DAILYPRN PRN Administration Constipation Magnesium Oxide 250 mg 06/05/20 09:00 06/08/20 09:58 Magnesium Oxide 250 Mg Tab PO 250 mg DAILY GLENN Administration Nystatin 0 gm 06/04/20 22:59 06/06/20 21:52 Nystatin Powder 15 Gm Bot TOP 1 applic BID PRN Administration Topical Irritations Polyethylene Glycol 17 gm 06/05/20 12:37 06/08/20 10:13 Polyethylene Glycol 3350 17 Gm Packet PO 17 gm DAILYPRN PRN Administration Constipation Senna 2 tab 06/04/20 23:06 06/08/20 10:13 Senokot 8.6 Mg Tab PO 2 tab HSPRN PRN Administration Constipation - Exam General Appearance: awake alert Eye: PERRL, anicteric sclera ENT: no oropharyngeal lesions, moist mucosa Neck: supple, no JVD Heart: RRR, no murmur Respiratory: no wheezes, no rales Gastrointestinal: soft, non-tender, non-distended, normal bowel sounds Extremities: no cyanosis, no edema Neurological: cranial nerve grossly intact, no focal deficits Psychiatric: normal affect, A&O x 3 Hosp A/P (1) Acute on chronic systolic (congestive) heart failure Code(s): I50.23 - ACUTE ON CHRONIC SYSTOLIC (CONGESTIVE) HEART FAILURE Status: Acute (2) HTN (hypertension) Code(s): I10 - ESSENTIAL (PRIMARY) HYPERTENSION Status: Chronic Qualifiers: Hypertension type: essential hypertension Qualified Code(s): I10 - Essential (primary) hypertension (3) Morbid obesity with BMI of 50.0-59.9, adult Code(s): E66.01 - MORBID (SEVERE) OBESITY DUE TO EXCESS CALORIES; Z68.43 - BODY MASS INDEX [BMI] 50.0-59.9, ADULT Status: Chronic (4) UTI (urinary tract infection) Status: Acute Qualifiers: Urinary tract infection type: acute cystitis Hematuria presence: without hematuria Qualified Code(s): N30.00 - Acute cystitis without hematuria (5) Chronic kidney disease, stage 4 (severe) Code(s): N18.4 - CHRONIC KIDNEY DISEASE, STAGE 4 (SEVERE) Status: Chronic (6) Diabetes mellitus type 2 Code(s): E11.9 - TYPE 2 DIABETES MELLITUS WITHOUT COMPLICATIONS Status: Chronic (7) Blindness - both eyes Code(s): H54.0 - BLINDNESS, BOTH EYES * DO NOT USE * Status: Chronic (8) Physical deconditioning Code(s): R53.81 - OTHER MALAISE Status: Acute - Plan is on lasix, coreg, plavix, 70/30 insulin, lipitor and cipro d/w patient and daughter over phone 06/06/2020 uti with klebsiella. she needs to mobilize more, has bmi of 53, PT eval she had seen 3 weeks back per patient and will f/u with him and decide on AICD/RESIDENCE LIFE DIRECTOR hemostable is severely deconditioned, needs rehab/swing bed for dc plan
[2020-06-08] MEDS: HumaLOG 300 UNITS/3 ML VIAL SC PRN (14:26)
[2020-06-08] MEDS: Atorvastatin Calcium 10 MG TAB PO SCH (21:15)
[2020-06-08 23:07] LABS: #Eosinphils 0.1 thou/uL (0.0-0.7); #Lymphocytes 0.5 thou/uL (1.20-3.40); #Monocytes 0.6 thou/uL (0.11-0.59); #Neutrophils 4.1 thou/uL (1.40-6.50); %Basophils 0.2 % (0.0-1.0); %Lymphocytes 9.7 % (21.0-51.0); %Monocytes 11.7 % (0.0-10.0); %Neutrophils 77.4 % (42.0-75.0); Hemoglobin 11.4 g/dL (12.0-16.0); Mean Corpuscular HGB CONC 32.2 g/dL (32.0-36.0); Mean Corpuscular Hemoglobin 27.5 pg (27.0-31.0); Mean Corpuscular Volume 85.3 fL (78.0-98.0); Mean Platelet Volume 9.4 fL (7.4-10.4); Platelet Count 109 thou/uL (130-400); RBC Distribution Width 16.7 % (11.5-14.5); Red Blood Cell (RBC) Count 4.14 mill/uL (4.20-5.40); White Blood Cell (WBC) Count 5.4 thou/uL (4.8-10.8)
[2020-06-08 23:11] LABS: Anion Gap 10 mmol/L (10-20); BUN (Urea Nitrogen) 33 mg/dL (9.8-20.1); Calc. Creatinine Clearance 50 mL/min (70-130); Calcium 8.5 mg/dL (7.8-10.44); Carbon Dioxide 29 mmol/L (23-31); Chloride 101 mmol/L (98-107); Estimated GFR-MDRD 19; Glucose 142 mg/dL (80-115); Potassium 3.9 mmol/L (3.5-5.1); Sodium 136 mmol/L (136-145)
[2020-06-09 05:07] LABS: Anion Gap 13 mmol/L (10-20); BUN (Urea Nitrogen) 34 mg/dL (9.8-20.1); Calc. Creatinine Clearance 50 mL/min (70-130); Calcium 8.6 mg/dL (7.8-10.44); Carbon Dioxide 28 mmol/L (23-31); Chloride 99 mmol/L (98-107); Estimated GFR-MDRD 19; Glucose 116 mg/dL (80-115); Potassium 3.9 mmol/L (3.5-5.1); Sodium 136 mmol/L (136-145)
[2020-06-09 05:24] LABS: Band 1 % (5-11); Hemoglobin 11.4 g/dL (12.0-16.0); Lymphocytes 12 % (21-51); MDiff Complete? YES; Mean Corpuscular HGB CONC 32.6 g/dL (32.0-36.0); Mean Corpuscular Hemoglobin 27.9 pg (27.0-31.0); Mean Corpuscular Volume 85.6 fL (78.0-98.0); Mean Platelet Volume 9.8 fL (7.4-10.4); Monocytes 6 % (0-10); Neutrophil 81 % (42-75); Platelet Count 116 thou/uL (130-400); Platelet Morphology Comment Appears Decreased; RBC Distribution Width 16.5 % (11.5-14.5); Red Blood Cell (RBC) Count 4.07 mill/uL (4.20-5.40)
[2020-06-09] MEDS: Cipro 250 MG TAB PO SCH ×2 (05:49→20:27)
[2020-06-09] MEDS: Furosemide 40 MG/4 ML VIAL SLOW IVP SCH ×2 (05:49→14:16)
[2020-06-09] MEDS: Levothyroxine Sodium 50 MCG TAB PO SCH (05:49)
[2020-06-09] MEDS: Carvedilol 6.25 MG TAB PO SCH ×2 (08:44→16:50)
[2020-06-09] MEDS: Clopidogrel Bisulfate 75 MG TAB PO SCH (08:44)
[2020-06-09] MEDS: Magnesium Oxide 250 MG TAB PO SCH (08:45)
[2020-06-09] MEDS: Senokot 8.6 MG TAB PO PRN (08:45)
[2020-06-09] MEDS: Polyethylene Glycol 3350 17 GM Packet PO PRN (08:45)
[2020-06-09] MEDS: Heparin 5,000 UNITS/ML VIAL SC SCH ×3 (08:59→20:27)
[2020-06-09] MEDS: HumuLIN 70/30 (300 UNITS/3 ML VIAL) SC SCH ×2 (09:00→20:28)
[2020-06-09] MEDS: HumaLOG 300 UNITS/3 ML VIAL SC PRN (12:21)
--- NOTE | 2020-06-09 13:27 | PDOC.HOSPP ---
- Subjective Encounter Date: 06/09/20 Encounter Time: 09:20 Subjective: no new complaints has burning sensation on her plantar aspect of b/l feet and some ankle pain she can barely flex her knees and hips, cant sit up by herself without support - Objective Vital Signs & Weight: Vital Signs (12 hours) Temp Pulse Pulse Pulse Resp BP BP 06/09/20 12:09 98.5 F 73 18 06/09/20 09:39 71 73 142/66 H 135/63 06/09/20 07:44 98.1 F 75 20 06/09/20 04:15 98.8 F 74 18 BP Pulse Ox 06/09/20 12:09 132/63 97 06/09/20 09:39 06/09/20 07:44 147/67 H 98 06/09/20 04:15 140/63 97 Weight Admit Weight 322 lb Weight 311 lb 8 oz I&O: 06/08/20 06/09/20 06/10/20 06:59 06:59 06:59 Intake Total 240 140 Output Total 600 650 Balance -360 -510 Result Diagrams: 06/09/20 03:51 06/09/20 03:51 Additional Labs: Accuchecks 06/09/20 06/09/20 06/08/20 10:35 06:13 20:57 POC Glucose 206 H 116 H 171 H 06/08/20 17:03 POC Glucose 160 H Hospitalist ROS - Medication Medications: Active Medications Generic Name Dose Route Start Last Admin Trade Name Freq PRN Reason Stop Dose Admin Atorvastatin Calcium 10 mg 06/05/20 21:00 06/08/20 21:15 Atorvastatin Calcium 10 Mg Tab PO 10 mg HS GLENN Administration Bisacodyl 5 mg 06/04/20 23:06 06/07/20 09:57 Bisacodyl 5 Mg Tab PO 5 mg DAILYPRN PRN Administration Constipation Carvedilol 6.25 mg 06/06/20 17:00 06/09/20 08:44 Carvedilol 6.25 Mg Tab PO 6.25 mg BID-WM GLENN Administration Ciprofloxacin 250 mg 06/07/20 20:00 06/09/20 05:49 Cipro 250 Mg Tab PO 250 mg BID@0600,2000 GLENN Administration Clopidogrel Bisulfate 75 mg 06/05/20 09:00 06/09/20 08:44 Clopidogrel Bisulfate 75 Mg Tab PO 75 mg DAILY GLENN Administration Furosemide 40 mg 06/05/20 06:00 06/09/20 05:49 Furosemide 40 Mg/4 Ml Vial SLOW IVP 40 mg 0600,1400 GLENN Administration Heparin Sodium (Porcine) 5,000 units 06/04/20 21:00 06/09/20 08:59 Heparin 5,000 Units/Ml Vial SC 5,000 units TID GLENN Administration Insulin Human Isoph/Insulin Regular 10 units 06/05/20 09:00 06/09/20 09:00 Humulin 70/30 (300 Units/3 Ml Vial) SC 10 unit BID GLENN Administration Insulin Human Lispro 0 units 06/04/20 17:30 06/09/20 12:21 Humalog 300 Units/3 Ml Vial SC 3 unit .MILD SLIDING SCALE PRN Administration Mild Correctional Scale Levothyroxine Sodium 50 mcg 06/06/20 06:00 06/09/20 05:49 Levothyroxine Sodium 50 Mcg Tab PO 50 mcg 0600 GLENN Administration Magnesium Hydroxide 30 ml 06/06/20 11:49 06/07/20 21:47 Milk Of Magnesia 30 Ml Udcup PO 30 ml DAILYPRN PRN Administration Constipation Magnesium Oxide 250 mg 06/05/20 09:00 06/09/20 08:45 Magnesium Oxide 250 Mg Tab PO 250 mg DAILY GLENN Administration Nystatin 0 gm 06/04/20 22:59 06/06/20 21:52 Nystatin Powder 15 Gm Bot TOP 1 applic BID PRN Administration Topical Irritations Polyethylene Glycol 17 gm 06/05/20 12:37 06/09/20 08:45 Polyethylene Glycol 3350 17 Gm Packet PO 17 gm DAILYPRN PRN Administration Constipation Senna 2 tab 06/04/20 23:06 06/09/20 08:45 Senokot 8.6 Mg Tab PO 2 tab HSPRN PRN Administration Constipation - Exam General Appearance: awake alert Eye: PERRL, anicteric sclera ENT: no oropharyngeal lesions, moist mucosa Neck: supple, no JVD Heart: RRR, no murmur Respiratory: no wheezes, no rales Gastrointestinal: soft, non-tender, non-distended, normal bowel sounds Extremities: no cyanosis, 1+ LE edema Neurological: cranial nerve grossly intact, no focal deficits Psychiatric: A&O x 3 Hosp A/P (1) Acute on chronic systolic (congestive) heart failure Code(s): I50.23 - ACUTE ON CHRONIC SYSTOLIC (CONGESTIVE) HEART FAILURE Status: Acute (2) HTN (hypertension) Code(s): I10 - ESSENTIAL (PRIMARY) HYPERTENSION Status: Chronic Qualifiers: Hypertension type: essential hypertension Qualified Code(s): I10 - Essential (primary) hypertension (3) Morbid obesity with BMI of 50.0-59.9, adult Code(s): E66.01 - MORBID (SEVERE) OBESITY DUE TO EXCESS CALORIES; Z68.43 - BODY MASS INDEX [BMI] 50.0-59.9, ADULT Status: Chronic (4) UTI (urinary tract infection) Status: Acute Qualifiers: Urinary tract infection type: acute cystitis Hematuria presence: without hematuria Qualified Code(s): N30.00 - Acute cystitis without hematuria (5) Chronic kidney disease, stage 4 (severe) Code(s): N18.4 - CHRONIC KIDNEY DISEASE, STAGE 4 (SEVERE) Status: Chronic (6) Diabetes mellitus type 2 Code(s): E11.9 - TYPE 2 DIABETES MELLITUS WITHOUT COMPLICATIONS Status: Chronic (7) Blindness - both eyes Code(s): H54.0 - BLINDNESS, BOTH EYES * DO NOT USE * Status: Chronic (8) Physical deconditioning Code(s): R53.81 - OTHER MALAISE Status: Acute - Plan is on lasix, coreg, plavix, 70/30 insulin, lipitor and cipro d/w patient and daughter over phone 06/06/2020, 06/08/20. uti with klebsiella. she needs to mobilize more, has bmi of 53, PT eval she had seen 3 weeks back per patient and will f/u with him and decide on AICD/OPHTHALMIC TECHNICIAN APPRENTICE hemostable is severely deconditioned, needs rehab/swing bed for dc plan may dc anytime once placement is ready
[2020-06-09] MEDS: Atorvastatin Calcium 10 MG TAB PO SCH (20:27)
[2020-06-10] MEDS: Furosemide 40 MG/4 ML VIAL SLOW IVP SCH ×3 (05:30→16:04)
[2020-06-10] MEDS: Levothyroxine Sodium 50 MCG TAB PO SCH (05:31)
[2020-06-10] MEDS: Cipro 250 MG TAB PO SCH ×2 (08:33→19:44)
[2020-06-10] MEDS: Polyethylene Glycol 3350 17 GM Packet PO PRN (08:33)
[2020-06-10] MEDS: Carvedilol 6.25 MG TAB PO SCH ×2 (08:33→17:06)
[2020-06-10] MEDS: Clopidogrel Bisulfate 75 MG TAB PO SCH (08:34)
[2020-06-10] MEDS: Heparin 5,000 UNITS/ML VIAL SC SCH ×3 (08:34→19:45)
[2020-06-10] MEDS: Magnesium Oxide 250 MG TAB PO SCH (08:34)
[2020-06-10] MEDS: Bisacodyl 5 MG TAB PO PRN (08:41)
[2020-06-10] MEDS: HumuLIN 70/30 (300 UNITS/3 ML VIAL) SC SCH ×2 (10:21→19:52)
[2020-06-10] MEDS: HumaLOG 300 UNITS/3 ML VIAL SC PRN (11:17)
[2020-06-10] MEDS ORDERED: Allopurinol 100 MG TAB PO SCH (11:30)
--- NOTE | 2020-06-10 13:48 | PDOC.HOSPP ---
- Subjective Encounter Date: 06/10/20 Encounter Time: 10:15 Subjective: no sob or chest pain has not ambulated yet, still has parasthesias over plantar feet areas - Objective Vital Signs & Weight: Vital Signs (12 hours) Temp Pulse Resp BP BP Pulse Ox 06/10/20 11:12 98.5 F 73 19 147/69 H 97 06/10/20 08:33 148/70 H 06/10/20 07:38 98.6 F 74 18 148/70 H 97 06/10/20 03:16 98.7 F 72 14 146/68 H 97 Weight Admit Weight 322 lb Weight 314 lb 1.6 oz I&O: 06/09/20 06/10/20 06/11/20 06:59 06:59 06:59 Intake Total 140 1455 Output Total 650 1900 Balance -510 -445 Result Diagrams: 06/09/20 03:51 06/09/20 03:51 Additional Labs: Accuchecks 06/10/20 06/10/20 06/09/20 10:40 05:28 17:02 POC Glucose 226 H 147 H 128 H Hospitalist ROS - Medication Medications: Active Medications Generic Name Dose Route Start Last Admin Trade Name Freq PRN Reason Stop Dose Admin Allopurinol 200 mg 06/10/20 11:30 06/10/20 12:39 Allopurinol 100 Mg Tab PO 06/10/20 14:00 200 mg NOW GLENN Administration Atorvastatin Calcium 10 mg 06/05/20 21:00 06/09/20 20:27 Atorvastatin Calcium 10 Mg Tab PO 10 mg HS GLENN Administration Bisacodyl 5 mg 06/04/20 23:06 06/10/20 08:41 Bisacodyl 5 Mg Tab PO 5 mg DAILYPRN PRN Administration Constipation Carvedilol 6.25 mg 06/06/20 17:00 06/10/20 08:33 Carvedilol 6.25 Mg Tab PO 6.25 mg BID-WM GLENN Administration Ciprofloxacin 250 mg 06/07/20 20:00 06/10/20 08:33 Cipro 250 Mg Tab PO 250 mg BID@06,1999 GLENN Administration Clopidogrel Bisulfate 75 mg 06/05/20 09:00 06/10/20 08:34 Clopidogrel Bisulfate 75 Mg Tab PO 75 mg DAILY GLENN Administration Furosemide 40 mg 06/05/20 06:00 06/10/20 05:30 Furosemide 40 Mg/4 Ml Vial SLOW IVP 40 mg 0600,1400 [facility] Administration Heparin Sodium (Porcine) 5,000 units 06/04/20 21:00 06/10/20 08:34 Heparin 5,000 Units/Ml Vial SC 5,000 units TID GLENN Administration Insulin Human Isoph/Insulin Regular 10 units 06/05/20 09:00 06/10/20 10:21 Humulin 70/30 (300 Units/3 Ml Vial) SC Not Given BID [facility] Insulin Human Lispro 0 units 06/04/20 17:30 06/10/20 11:17 Humalog 300 Units/3 Ml Vial SC 3 unit .MILD SLIDING SCALE PRN Administration Mild Correctional Scale Levothyroxine Sodium 50 mcg 06/06/20 06:00 06/10/20 05:31 Levothyroxine Sodium 50 Mcg Tab PO 50 mcg 0600 [facility] Administration Magnesium Hydroxide 30 ml 06/06/20 11:49 06/07/20 21:47 Milk Of Magnesia 30 Ml Udcup PO 30 ml DAILYPRN PRN Administration Constipation Magnesium Oxide 250 mg 06/05/20 09:00 06/10/20 08:34 Magnesium Oxide 250 Mg Tab PO 250 mg DAILY GLENN Administration Nystatin 0 gm 06/04/20 22:59 06/06/20 21:52 Nystatin Powder 15 Gm Bot TOP 1 applic BID PRN Administration Topical Irritations Polyethylene Glycol 17 gm 06/05/20 12:37 06/10/20 08:33 Polyethylene Glycol 3350 17 Gm Packet PO 17 gm DAILYPRN PRN Administration Constipation Senna 2 tab 06/04/20 23:06 06/09/20 08:45 Senokot 8.6 Mg Tab PO 2 tab HSPRN PRN Administration Constipation - Exam General Appearance: awake alert Eye: PERRL, anicteric sclera ENT: no oropharyngeal lesions, moist mucosa Neck: supple, no JVD Heart: RRR, no murmur Respiratory: no wheezes, no rales Gastrointestinal: soft, non-tender, non-distended, normal bowel sounds Extremities: no cyanosis, 1+ LE edema Neurological: cranial nerve grossly intact, no focal deficits Psychiatric: normal affect, A&O x 3 Hosp A/P (1) Acute on chronic systolic (congestive) heart failure Code(s): I50.23 - ACUTE ON CHRONIC SYSTOLIC (CONGESTIVE) HEART FAILURE Status: Acute (2) HTN (hypertension) Code(s): I10 - ESSENTIAL (PRIMARY) HYPERTENSION Status: Chronic Qualifiers: Hypertension type: essential hypertension Qualified Code(s): I10 - Essential (primary) hypertension (3) Morbid obesity with BMI of 50.0-59.9, adult Code(s): E66.01 - MORBID (SEVERE) OBESITY DUE TO EXCESS CALORIES; Z68.43 - BODY MASS INDEX [BMI] 50.0-59.9, ADULT Status: Chronic (4) UTI (urinary tract infection) Status: Acute Qualifiers: Urinary tract infection type: acute cystitis Hematuria presence: without hematuria Qualified Code(s): N30.00 - Acute cystitis without hematuria (5) Chronic kidney disease, stage 4 (severe) Code(s): N18.4 - CHRONIC KIDNEY DISEASE, STAGE 4 (SEVERE) Status: Chronic (6) Diabetes mellitus type 2 Code(s): E11.9 - TYPE 2 DIABETES MELLITUS WITHOUT COMPLICATIONS Status: Chronic (7) Blindness - both eyes Code(s): H54.0 - BLINDNESS, BOTH EYES * DO NOT USE * Status: Chronic (8) Physical deconditioning Code(s): R53.81 - OTHER MALAISE Status: Acute - Plan is on lasix, coreg, plavix, 70/30 insulin, lipitor and cipro d/w patient and daughter over phone 06/06/2020, 06/08/20. uti with klebsiella. she needs to mobilize more, has bmi of 53, counselled to ambulate today. she had seen 3 weeks back per patient and will f/u with him and decide on AICD/WATER CONSERVATIONIST hemostable is severely deconditioned, needs rehab/swing bed, likely dc plan in am to rehab allopurinol renal dose and neurontin for likely neuropathy.
[2020-06-10 14:17] VITALS: BMI 52.2
[2020-06-10] MEDS: Atorvastatin Calcium 10 MG TAB PO SCH (19:44)
[2020-06-10] MEDS: Gabapentin 100 MG CAP PO SCH (19:44)
[2020-06-11] MEDS: Cipro 250 MG TAB PO SCH (05:14)
[2020-06-11] MEDS: Levothyroxine Sodium 50 MCG TAB PO SCH (05:14)
[2020-06-11] MEDS: Bisacodyl 5 MG TAB PO PRN (08:30)
[2020-06-11] MEDS: Clopidogrel Bisulfate 75 MG TAB PO SCH (08:31)
[2020-06-11] MEDS: Carvedilol 6.25 MG TAB PO SCH ×2 (08:31→16:09)
[2020-06-11] MEDS: Furosemide 40 MG TAB PO SCH ×2 (08:31→15:22)
[2020-06-11] MEDS: Magnesium Oxide 250 MG TAB PO SCH (08:31)
[2020-06-11] MEDS: Gabapentin 100 MG CAP PO SCH (08:31)
[2020-06-11] MEDS: HumuLIN 70/30 (300 UNITS/3 ML VIAL) SC SCH (08:31)
[2020-06-11] MEDS: Heparin 5,000 UNITS/ML VIAL SC SCH ×2 (08:31→15:22)
[2020-06-11] MEDS: Polyethylene Glycol 3350 17 GM Packet PO PRN (08:33)
[2020-06-11] MEDS ORDERED: Allopurinol 100 MG TAB PO SCH (09:00)
[2020-06-11] MEDS: HumaLOG 300 UNITS/3 ML VIAL SC PRN (11:32)
[2020-06-11 11:44] VITALS: TEMP 98.5
--- NOTE | 2020-06-11 16:22 | DIS ---
DATE OF ADMISSION: 06/04/2020 DATE OF DISCHARGE: 06/11/2020 DISCHARGE DISPOSITION: Inpatient rehab. PRIMARY DISCHARGE DIAGNOSES: Acute CHF exacerbation with systolic and diastolic dysfunction; urinary tract infection, resolved; hypertension; morbid obesity; diabetes mellitus type 2; chronic kidney disease, stage 4; bilateral blindness; deconditioning. PROCEDURES DONE DURING HOSPITALIZATION: Chest x-ray done showed no acute cardiopulmonary process. Echo with 2D Doppler done showed an EF of 20% to 25%, moderate to severely elevated pulmonary artery pressure. Urine culture grew Klebsiella pneumoniae sensitive to all antibiotics except Macrobid. H and H 11 and 34, platelet count 116, MCV 85. She has had serial BNP done. The last one done today was 3875. BUN and creatinine were 34 and 2.4 on the . Albumin 3.3. DISCHARGE MEDICATIONS: 1. Aspirin 81 mg p.o. daily. 2. Humalog 75/25, 10 units subcu twice daily. 3. Levothyroxine 50 mcg p.o. daily. 4. Magnesium oxide 250 mg p.o. daily. 5. Plavix 75 mg p.o. daily. 6. Pravastatin 40 mg p.o. at bedtime. 7. Protonix 20 mg p.o. daily. 8. Coreg 6.25 mg twice daily. 9. Lasix 40 mg at 9 a.m. and 2:00 p.m. 10. Gabapentin 100 mg twice daily. 11. Allopurinol 200 mg p.o. daily. ALLERGIES: NO KNOWN DRUG ALLERGIES. DISCHARGE PLAN: The patient to follow up with Dr. Menendez for possible placement of AICD with FORENSIC SOCIAL WORKER. She needs to follow up with Dr. Michael Vidal, her primary care physician in 2 weeks. BRIEF COURSE DURING HOSPITALIZATION: Ms. Lucho Dove came to ER on the of this month with complaints of lower extremity swelling and shortness of breath. The patient was essentially admitted to telemetry for CHF exacerbation with systolic and diastolic dysfunction. She has had an echo done which showed ejection fraction of 20% to 25%. The patient also had LBBB on a baseline EKG. She has had gentle diuresis done in view of CKD stage 4. During the course of her stay here, the patient got severely deconditioned. She was barely able to stand up with support. She is being discharged to inpatient rehab for further recuperation prior to going home. She is advised to closely follow up with Dr. Menendez in 2 to 3 weeks for possible placement of AICD and FORENSIC SOCIAL WORKER. She was given a choice to have it done here, but the patient prefers to follow up with Dr. Menendez and have it done under his guidance. She is otherwise hemodynamically stable and will be shortly discharged to inpatient rehab. A total of 35 minutes was spent on discharge plan. Please note, I have seen and examined the patient on the day of discharge. Job ID: [id number]
[2020-06-11 17:25] VITALS: BP 146/72
== END 2020-06-11 17:00 | DRG 291 ==
LOC: ERS 12:08 → 2NO 15:03
PROVIDERS: ADMIT Student in an Organized Health Care Education/Training Program; ATTEND Student in an Organized Health Care Education/Training Program
DX: I13.0 Hypertensive heart and chronic kidney disease with heart failure and stage 1 through stage 4 chronic kidney disease, or unspecified chronic kidney disease (principal); I50.43 Acute on chronic combined systolic (congestive) and diastolic (congestive) heart failure; N18.4 Chronic kidney disease, stage 4 (severe); N30.00 Acute cystitis without hematuria; Z68.43 Body mass index [BMI] 50.0-59.9, adult; E03.9 Hypothyroidism, unspecified; F17.210 Nicotine dependence, cigarettes, uncomplicated; D72.819 Decreased white blood cell count, unspecified; D69.6 Thrombocytopenia, unspecified; E11.22 Type 2 diabetes mellitus with diabetic chronic kidney disease; K59.00 Constipation, unspecified; E66.01 Morbid (severe) obesity due to excess calories; I44.7 Left bundle-branch block, unspecified; R53.81 Other malaise; B96.1 Klebsiella pneumoniae [K. pneumoniae] as the cause of diseases classified elsewhere; H54.8 Legal blindness, as defined in USA; Z79.890 Hormone replacement therapy; Z79.899 Other long term (current) drug therapy; Z79.01 Long term (current) use of anticoagulants; Z79.4 Long term (current) use of insulin; Z90.49 Acquired absence of other specified parts of digestive tract; Z99.3 Dependence on wheelchair
CPT/HCPCS: 36415; 36416; 71045; 80048; 80053; 81003; 81015; 82553; 83880; 84484; 85025; 87077; 87086; 87186; 93005; 93306; 93798; 96374; 97139; J0696; J1644; J1815; J1940; J3490

== ENCOUNTER 2020-07-03 11:11 | Inpatient (IN) | payer MEDICARE, MEDICAID ==
[2020-07-03] MEDS ORDERED: Dexamethasone 10 MG/ML VIAL ONE (11:52)
[2020-07-03 12:38] LABS: #Lymphocytes 0.5 thou/uL (1.20-3.40); #Monocytes 0.2 thou/uL (0.11-0.59); #Neutrophils 4.7 thou/uL (1.40-6.50); %Eosinophils 0.4 % (0.0-10.0); %Lymphocytes 8.5 % (21.0-51.0); %Monocytes 3.5 % (0.0-10.0); %Neutrophils 87.6 % (42.0-75.0); Hemoglobin 10.5 g/dL (12.0-16.0); Mean Corpuscular HGB CONC 31.1 g/dL (32.0-36.0); Mean Corpuscular Hemoglobin 26.5 pg (27.0-31.0); Mean Corpuscular Volume 85.4 fL (78.0-98.0); Mean Platelet Volume 9.6 fL (7.4-10.4); Platelet Count 109 thou/uL (130-400); RBC Distribution Width 17.2 % (11.5-14.5); Red Blood Cell (RBC) Count 3.95 mill/uL (4.20-5.40); White Blood Cell (WBC) Count 5.3 thou/uL (4.8-10.8)
[2020-07-03 12:56] LABS: ALT (SGPT) 13 U/L (8-55); AST (SGOT) 32 U/L (5-34); Albumin 3.3 g/dL (3.4-4.8); Alkaline Phosphatase 249 U/L (40-110); Anion Gap 19 mmol/L (10-20); BUN (Urea Nitrogen) 60 mg/dL (9.8-20.1); Calc. Creatinine Clearance 0 mL/min (70-130); Carbon Dioxide 18 mmol/L (23-31); Chloride 100 mmol/L (98-107); Globulin 4.2 g/dL (2.4-3.5); Glucose 171 mg/dL (80-115); Potassium 4.5 mmol/L (3.5-5.1); Protein, Total 7.5 g/dL (6.0-8.3); Sodium 132 mmol/L (136-145)
--- NOTE | 2020-07-03 13:05 | RAD ---
PORTABLE CHEST 1 VIEW: DATE: 07/03/2020. TIME: 12:32 PM. HISTORY: Dyspnea, COVID positive. COMPARISON: Comparison is made with the exam of 06/28/2020. FINDINGS: The heart is enlarged. New multifocal patchy opacities are noted bilaterally. No pneumothoraces or pleural effusions are seen. IMPRESSION: Findings are consistent with COVID-19 pneumonia. POS: AH
[2020-07-03] MEDS ORDERED: Furosemide 40 MG/4 ML VIAL ONE (13:12)
[2020-07-03] MEDS ORDERED: Aspirin Chewable 81 MG TAB ONE (13:12)
[2020-07-03 13:17] LABS: CKMB 0.4 ng/mL (0-6.6)
[2020-07-03 14:32] LABS: Bacteria/HPF 4+ HPF (None Seen); Bilirubin Negative (Negative); Blood, Urine 1+ (Negative); Clarity Turbid (Clear); Glucose, Urine (Dipstick) Normal (Negative); Ketone, Urine Negative (Negative); Leukocyte 75 Leu/uL (Negative); Nitrite Negative (Negative); Protein, Urine (Dipstick) 200 mg/dL (Neg-Trace); Specific Gravity, Urine 1.018 (1.002-1.036); Urobilinogen Normal mg/dL (Less than 2); pH, Urine 5.5 (5.0-9.0)
[2020-07-03] MEDS ORDERED: Albuterol 200 PUFF (6.7GM INHALER) ONE (14:45)
--- NOTE | 2020-07-03 14:58 | PDOC.HHP ---
Hospitalist HPI - History of Present Illness Shortness of breath History of Present Illness: This a 69-year-old female patient with a history of diabetes mellitus, hypertension, coronary disease, morbid obesity who Was brought in from her rehab facility on account of hypoxia and shortness of breath. She is legally blind Patient had a recent urinary tract infection and generalized weakness and was admitted and on discharge was sent for rehab. 3 days ago he had a feeling symptoms of shortness of breath and yesterday was diagnosed Covid positive with increasing oxygen requirements. She required up to 5 L saturating at 90%. She denied associated chest pain or palpitations. At presentation here She was saturating at 98% on 3 L oxygen. Temperature was 100.2, respiratory 25 pulse 96 and BP 138/76. UA showed WBC 11-20, troponin was elevated at 0.261, BNP elevated at 3745, sodium 132, bicarb 18, BUN 60 and creatinine 3.25 from a baseline of around the same range. D-dimer was elevated at 1.07. She had a mild anemia of 10.5, and thrombocytopenia of 109. Chest x-ray showed new multifocal patchy opacities bilaterally consistent with Covid pneumonia. She was given Proventil inhalation, aspirin, Decadron and Lasix. Hospitalist team was consulted for admission. Hospitalist ROS - Review of Systems Constitutional: reports: chills. denies: fever, sweats, weakness Respiratory: reports: cough, shortness of breath, SOB with excertion Cardiovascular: reports: chest pain, palpitations, orthopnea, paroxysmal noc. dyspnea Gastrointestinal: denies: nausea, vomiting, abdominal pain Genitourinary: denies: dysuria, frequency, incontinence Neurological: denies: weakness, numbness, incoordination - Medication Medications: Can refer to ambulatory med list: Allergies: No known drug allergies Hospitalist History - Past Medical History Endocrine: reports: Diabetes Other Medical History: diabetes mellitus, hypertension, coronary disease, morbid obesity - Past Surgical History Past Surgical History: reports: Cholecystectomy Other Surgical History: Lumbar fusion - Family History Family History: reports: no pertinent history - Social History Alcohol: reports: None Living Situation: With Family - Exam General Appearance: awake alert General - other findings: Morbidly obese, in respiratory distress Heart: RRR, no murmur, no gallops, no rubs, normal peripheral pulses Respiratory - other findings: Bilateral coarse breath sounds. Gastrointestinal: soft, non-tender, non-distended, normal bowel sounds Extremities: no cyanosis, no clubbing, 1+ LE edema Neurological: cranial nerve grossly intact, no weakness Psychiatric: A&O x 3 Psychiatric - other findings: Looking depressed Hospitalist Results - Labs Result Diagrams: 07/03/20 12:22 07/03/20 12:22 Lab results: WBC 5.3 thou/uL (4.8-10.8) 07/03/20 12:22 Hgb 10.5 g/dL (12.0-16.0) L 07/03/20 12:22 Hct 33.7 % (36.0-47.0) L 07/03/20 12:22 MCV 85.4 fL (78.0-98.0) 07/03/20 12:22 Plt Count 109 thou/uL (130-400) L 07/03/20 12:22 Neutrophils % 87.6 % (42.0-75.0) H 07/03/20 12:22 Sodium 132 mmol/L (136-145) L 07/03/20 12:22 Potassium 4.5 mmol/L (3.5-5.1) 07/03/20 12:22 Chloride 100 mmol/L (98-107) 07/03/20 12:22 Carbon Dioxide 18 mmol/L (23-31) L 07/03/20 12:22 BUN 60 mg/dL (9.8-20.1) H 07/03/20 12:22 Creatinine 3.25 mg/dL (0.6-1.1) H 07/03/20 12:22 Glucose 171 mg/dL (80-115) H 07/03/20 12:22 Lactic Acid 1.7 mmol/L (0.5-2.2) 07/03/20 12:22 Calcium 9.0 mg/dL (7.8-10.44) 07/03/20 12:22 Total Bilirubin 1.0 mg/dL (0.2-1.2) 07/03/20 12:22 AST 32 U/L (5-34) 07/03/20 12:22 ALT 13 U/L (8-55) 07/03/20 12:22 Alkaline Phosphatase 249 U/L (40-110) H 07/03/20 12:22 CK-MB (CK-2) 0.4 ng/mL (0-6.6) 07/03/20 12:22 Troponin I 0.261 ng/mL (< 0.028) H 07/03/20 12:22 B-Natriuretic Peptide 3745.5 pg/mL (0-100) H 07/03/20 12:22 Serum Total Protein 7.5 g/dL (6.0-8.3) 07/03/20 12:22 Albumin 3.3 g/dL (3.4-4.8) L 07/03/20 12:22 Urine Ketones Negative mg/dL (Negative) 07/03/20 13:58 Urine Blood 1+ (Negative) A 07/03/20 13:58 Urine Nitrite Negative (Negative) 07/03/20 13:58 Ur Leukocyte Esterase 75 Lang/uL (Negative) A 07/03/20 13:58 Urine RBC 7-10 HPF (0-3) A 07/03/20 13:58 Urine WBC 11-20 HPF (0-3) A 07/03/20 13:58 Ur Squamous Epith Cells 4-6 HPF (0-3) A 07/03/20 13:58 Urine Bacteria 4+ HPF (None Seen) A 07/03/20 13:58 Hospitalist H&P A/P - Plan Plan: A/P 69-year-old male patient history of diabetes hypertension coronary disease recently admitted for UTI and weakness now back with pneumonia due to Covid Which he acquired during her stay in rehab. Acute hypoxic respiratory failure Likely secondary to pneumonia due to Covid, possible PE We will admit and treat with steroids and anticoagulation Renal function is poorwould not get remdesivir Close monitoring and oxygen. Pneumonia due to Covid We will treat as above Close monitoring. Thrombocytopenia Likely due to Covid infection Monitor BMP CKD Creatinine at 3.25 around baseline Monitor closelyno remdesivir Consider renal consult if worsens. Acute exacerbation heart failure with reduced EF EF is 20 to 25% she has some edema with infiltrates on x-rayCovid/congestion BNP elevated above 3000 Diuresis Monitor BMP Daily weights, potassium Cardiac consult if deteriorates Elevated D-dimer D-dimer elevated at 1.07 Given her recent hospitalization and persistent elevated PE remains a possibility We will start coagulation of Lovenox dose given her poor renal function Arrange for possible VQ scan if possible in a.m. Blindness CODE STATUSfull code DVT prophylaxisLovenox
[2020-07-03] MEDS ORDERED: Ondansetron ODT 4 MG TAB PO PRN (15:27)
[2020-07-03] MEDS ORDERED: Acetaminophen 650 MG Suppository PR PRN (15:27)
[2020-07-03] MEDS ORDERED: Dextrose 50% Abboject 50 ML SYRINGE SLOW IVP PRN (15:40)
[2020-07-03] MEDS ORDERED: Dextrose 5% in Water 1,000 ML IV PRN (15:40)
[2020-07-03 16:52] LABS: Troponin I 0.267 ng/mL (< 0.028)
[2020-07-03 18:50] LABS: Troponin I 0.262 ng/mL (< 0.028)
[2020-07-03] MEDS ORDERED: Heparin 5,000 UNITS/ML VIAL SC SCH (21:00)
[2020-07-03] MEDS ORDERED: Enoxaparin Sodium 120 MG/0.8 ML SYRINGE SC SCH (21:00)
[2020-07-04] MEDS: Enoxaparin Sodium 120 MG/0.8 ML SYRINGE SC SCH ×2 (01:04→21:20)
[2020-07-04 06:06] LABS: #Lymphocytes 0.2 thou/uL (1.20-3.40); #Monocytes 0.1 thou/uL (0.11-0.59); #Neutrophils 3.9 thou/uL (1.40-6.50); %Basophils 0.8 % (0.0-1.0); %Eosinophils 0.2 % (0.0-10.0); %Lymphocytes 3.9 % (21.0-51.0); %Monocytes 2.9 % (0.0-10.0); %Neutrophils 92.2 % (42.0-75.0); Hemoglobin 10.5 g/dL (12.0-16.0); Mean Corpuscular HGB CONC 31.4 g/dL (32.0-36.0); Mean Platelet Volume 9.5 fL (7.4-10.4); Platelet Count 113 thou/uL (130-400); RBC Distribution Width 16.9 % (11.5-14.5); Red Blood Cell (RBC) Count 3.88 mill/uL (4.20-5.40); White Blood Cell (WBC) Count 4.2 thou/uL (4.8-10.8)
[2020-07-04 06:23] LABS: Anion Gap 20 mmol/L (10-20); BUN (Urea Nitrogen) 61 mg/dL (9.8-20.1); Calc. Creatinine Clearance 40 mL/min (70-130); Calcium 8.8 mg/dL (7.8-10.44); Carbon Dioxide 19 mmol/L (23-31); Chloride 101 mmol/L (98-107); Glucose 201 mg/dL (80-115); Potassium 4.6 mmol/L (3.5-5.1); Sodium 135 mmol/L (136-145)
[2020-07-04] MEDS ORDERED: FLU VACC QS2020-21(65YR UP)/PF 240 MCG/0.7 ML SYRINGE IM ONE (09:00)
[2020-07-04] MEDS: Furosemide 40 MG/4 ML VIAL SLOW IVP SCH (10:37)
[2020-07-04] MEDS: Dexamethasone 4 mg/ml Vial SLOW IVP SCH (10:37)
[2020-07-04] MEDS: Famotidine 20 MG TAB PO SCH (10:37)
[2020-07-04] MEDS ORDERED: Furosemide 40 MG TAB PO PRN (10:58)
[2020-07-04] MEDS ORDERED: Allopurinol 100 MG TAB PO SCH (11:30)
[2020-07-04] MEDS ORDERED: Levothyroxine Sodium 50 MCG TAB PO SCH (11:30)
[2020-07-04] MEDS ORDERED: Zinc Sulfate 220 MG CAP PO SCH (11:30)
[2020-07-04] MEDS ORDERED: HumuLIN 70/30 (300 UNITS/3 ML VIAL) SC SCH (11:30)
[2020-07-04] MEDS ORDERED: Aspirin 81 mg Enteric Coated Tablet PO SCH (11:30)
[2020-07-04] MEDS ORDERED: Polyethylene Glycol 3350 17 GM Packet PO SCH (11:30)
[2020-07-04] MEDS ORDERED: Clopidogrel Bisulfate 75 MG TAB PO SCH (11:30)
[2020-07-04] MEDS ORDERED: Carvedilol 6.25 MG TAB PO SCH (11:30)
[2020-07-04] MEDS ORDERED: Magnesium Oxide 250 MG TAB PO SCH (11:30)
[2020-07-04] MEDS ORDERED: Cholecalciferol 1,000 UNITS (25 MCG) TAB PO SCH (11:30)
[2020-07-04] MEDS: Acetaminophen 325 MG TAB PO PRN (11:58)
[2020-07-04] MEDS: Ondansetron PF 4 MG/2 ML Vial IVP PRN (17:27)
[2020-07-04] MEDS: Carvedilol 6.25 MG TAB PO SCH (17:27)
[2020-07-04] MEDS: HumaLOG 300 UNITS/3 ML VIAL SC PRN (17:33)
--- NOTE | 2020-07-04 20:22 | PDOC.HOSPP ---
- Subjective Encounter Date: 07/04/20 Encounter Time: 20:15 Subjective: f/u for COVID PNA on Dexamethasone/Lovenox/Zinc. No Remdesivir due to CKD. Remains on O2 @ 3L/min NC. - Objective Vital Signs & Weight: Vital Signs (12 hours) Temp Pulse Resp BP Pulse Ox 07/04/20 19:36 97.3 F L 70 19 147/67 H 96 07/04/20 14:45 98.1 F 68 25 H 138/63 98 07/04/20 12:05 99.0 F 73 26 H 165/72 H 94 L 07/04/20 11:30 96 07/04/20 08:48 98.1 F 70 23 H 136/60 95 Weight Admit Weight 305 lb 9.6 oz Weight 305 lb 9.6 oz I&O: 07/03/20 07/04/20 07/05/20 06:59 06:59 06:59 Intake Total 793 Balance 793 Result Diagrams: 07/04/20 05:34 07/04/20 05:34 Additional Labs: Accuchecks 07/04/20 07/04/20 17:06 10:33 POC Glucose 294 H 236 H Microbiology 07/03/20 13:58 Urine Straight Catheter Urine Culture - Preliminary Non-Hemolytic Streptococcus 07/03/20 12:48 Venous blood - Right Arm Blood Culture - Preliminary Specimen has been received and culture in progress. No Growth to date. 07/03/20 12:22 Venous blood - Right Hand Blood Culture - Preliminary Specimen has been received and culture in progress. No Growth to date. Laboratory Tests 06/21/20 06/29/20 07/03/20 05:00 03:00 12:22 Hgb Plt Count Neutrophils % D-Dimer Creatinine 3.25 H Lactic Acid Troponin I B-Natriuretic Peptide 1241.2 H 3236.9 H TSH 3rd Generation 07/03/20 07/03/20 07/03/20 12:22 12:22 12:22 Hgb Plt Count Neutrophils % D-Dimer 1.07 H Creatinine Lactic Acid Troponin I 0.261 H B-Natriuretic Peptide 3745.5 H TSH 3rd Generation 07/03/20 07/03/20 07/03/20 12:22 12:22 12:22 Hgb 10.5 L Plt Count 109 L Neutrophils % 87.6 H D-Dimer Creatinine Lactic Acid 1.7 Troponin I B-Natriuretic Peptide TSH 3rd Generation 1.6026 07/03/20 07/03/20 07/04/20 16:14 18:10 05:34 Hgb Plt Count Neutrophils % 92.2 H D-Dimer Creatinine Lactic Acid Troponin I 0.267 H 0.262 H B-Natriuretic Peptide TSH 3rd Generation Radiology Reviewed by me: Yes (PCXR - + bilat infiltrates) EKG Reviewed by me: Yes (Tele - SR) Hospitalist ROS - Medication Medications: Active Medications Generic Name Dose Route Start Last Admin Trade Name Freq PRN Reason Stop Dose Admin Acetaminophen 650 mg 07/03/20 15:27 07/04/20 11:58 Acetaminophen 325 Mg Tab PO 650 mg Q4H PRN Administration Headache/Fever/Mild Pain (1-3) Carvedilol 6.25 mg 07/04/20 17:00 07/04/20 17:27 Carvedilol 6.25 Mg Tab PO 6.25 mg BID-WM GLENN Administration Dexamethasone 8 mg 07/04/20 09:00 07/04/20 10:37 Dexamethasone 4 Mg/Ml Vial SLOW IVP 8 mg DAILY GLENN Administration Enoxaparin Sodium 120 mg 07/03/20 21:00 07/04/20 01:04 Enoxaparin Sodium 120 Mg/0.8 Ml Syringe SC Not Given 2100 GLENN Famotidine 20 mg 07/04/20 09:00 07/04/20 10:37 Famotidine 20 Mg Tab PO 20 mg DAILY GLENN Administration Furosemide 40 mg 07/04/20 09:00 07/04/20 10:37 Furosemide 40 Mg/4 Ml Vial SLOW IVP 40 mg DAILY GLENN Administration Insulin Human Lispro 0 units 07/03/20 15:40 07/04/20 17:33 Humalog 300 Units/3 Ml Vial SC 4 unit .MILD SLIDING SCALE PRN Administration Mild Correctional Scale Ondansetron HCl 4 mg 07/03/20 15:27 07/04/20 17:27 Ondansetron Pf 4 Mg/2 Ml Vial IVP 4 mg Q6H PRN Administration Nausea/Vomiting - Exam General Appearance: NAD, awake alert Eye: PERRL, anicteric sclera ENT: normocephalic atraumatic, no oropharyngeal lesions Neck: supple, symmetric, no JVD, no thyromegaly, no lymphadenopathy Heart: RRR, no gallops, no rubs, normal peripheral pulses Heart - other findings: S1, S2 distant heart sounds Respiratory: no wheezes, tachypneic Respiratory - other findings: scattered rhonchi and diminished bilat Gastrointestinal: soft, non-distended, normal bowel sounds, no palpable masses Gastrointestinal - other findings: mild TTP in suprapubic region Extremities: no cyanosis, no clubbing, 1+ LE edema Skin: normal turgor, no lesions Neurological: cranial nerve grossly intact, no new deficit Neurological - other findings: blindness bilat Musculoskeletal: normal tone, generalized weakness Psychiatric: normal affect, A&O x 3 Hosp A/P (1) Pneumonia due to COVID-19 virus Code(s): U07.1 - COVID-19; J12.89 - OTHER VIRAL PNEUMONIA Status: Acute Plan: Continue Rocephin, add Zithromax, continue Dexamethasone/Lovenox/O2 support (2) Acute respiratory failure with hypoxia Code(s): J96.01 - ACUTE RESPIRATORY FAILURE WITH HYPOXIA Status: Acute Plan: Continue O2 support, titrate to clinical response (3) Acute kidney injury superimposed on CKD Code(s): N17.9 - ACUTE KIDNEY FAILURE, UNSPECIFIED; N18.9 - CHRONIC KIDNEY DISEASE, UNSPECIFIED Status: Acute Plan: Improved, continue to monitor closely, avoid nephrotoxic meds and limit contrast (4) Acute on chronic systolic (congestive) heart failure Code(s): I50.23 - ACUTE ON CHRONIC SYSTOLIC (CONGESTIVE) HEART FAILURE Status: Acute Plan: Mild, continue Lasix 40mg IV daily, serial I/O's, daily weight, EF 20-25% by echo 06/09 (5) UTI (urinary tract infection) Status: Acute Qualifiers: Urinary tract infection type: acute cystitis Hematuria presence: without hematuria Qualified Code(s): N30.00 - Acute cystitis without hematuria Plan: Suspected given UA, start Rocephin 2gm IV daily, await Ucx results (6) Physical deconditioning Code(s): R53.81 - OTHER MALAISE Status: Acute (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
[2020-07-04] MEDS: HumuLIN 70/30 (300 UNITS/3 ML VIAL) SC SCH (21:19)
[2020-07-04] MEDS: Azithromycin 250 MG TAB PO SCH (21:20)
[2020-07-04] MEDS: Atorvastatin Calcium 10 MG TAB PO SCH (21:20)
[2020-07-04] MEDS: Zinc Sulfate 220 MG CAP PO SCH (21:20)
[2020-07-04] MEDS: cefTRIAXone\\ROCEPHIN 2 GM in Sodium Chloride 0.9% 100 ML IVPB SCH (21:21)
[2020-07-05] MEDS ORDERED: Dextrose 5% in Water 1,000 ML IV PRN (01:18)
[2020-07-05] MEDS ORDERED: Dextrose 50% Abboject 50 ML SYRINGE SLOW IVP PRN (01:18)
[2020-07-05] MEDS: Ondansetron PF 4 MG/2 ML Vial IVP PRN (02:02)
[2020-07-05 05:38] LABS: #Lymphocytes 0.2 thou/uL (1.20-3.40); #Monocytes 0.2 thou/uL (0.11-0.59); #Neutrophils 6.2 thou/uL (1.40-6.50); %Basophils 0.6 % (0.0-1.0); %Eosinophils 0.2 % (0.0-10.0); %Lymphocytes 3.4 % (21.0-51.0); %Monocytes 2.7 % (0.0-10.0); %Neutrophils 93.2 % (42.0-75.0); Hemoglobin 9.5 g/dL (12.0-16.0); Mean Corpuscular HGB CONC 30.4 g/dL (32.0-36.0); Mean Corpuscular Hemoglobin 26.5 pg (27.0-31.0); Platelet Count 143 thou/uL (130-400); RBC Distribution Width 17.2 % (11.5-14.5); Red Blood Cell (RBC) Count 3.59 mill/uL (4.20-5.40); White Blood Cell (WBC) Count 6.7 thou/uL (4.8-10.8)
[2020-07-05 06:02] LABS: Anion Gap 18 mmol/L (10-20); BUN (Urea Nitrogen) 63 mg/dL (9.8-20.1); CRP (Inflammatory) 16.76 mg/dL (= or < 0.5); Calc. Creatinine Clearance 45 mL/min (70-130); Calcium 8.7 mg/dL (7.8-10.44); Carbon Dioxide 20 mmol/L (23-31); Chloride 102 mmol/L (98-107); Glucose 234 mg/dL (80-115); Magnesium 1.8 mg/dL (1.6-2.6); Potassium 4.5 mmol/L (3.5-5.1); Sodium 135 mmol/L (136-145)
[2020-07-05] MEDS: HumaLOG 300 UNITS/3 ML VIAL SC PRN ×3 (06:36→16:36)
[2020-07-05] MEDS: Levothyroxine Sodium 50 MCG TAB PO SCH (06:37)
[2020-07-05] MEDS: HumuLIN 70/30 (300 UNITS/3 ML VIAL) SC SCH ×2 (07:44→22:39)
[2020-07-05] MEDS: Carvedilol 6.25 MG TAB PO SCH ×2 (07:47→16:41)
[2020-07-05] MEDS: Allopurinol 100 MG TAB PO SCH (07:48)
[2020-07-05] MEDS: Ascorbic Acid 500 mg Chewable Tablet PO SCH (07:48)
[2020-07-05] MEDS: Aspirin 81 mg Enteric Coated Tablet PO SCH (07:49)
[2020-07-05] MEDS: Cholecalciferol 1,000 UNITS (25 MCG) TAB PO SCH (07:49)
[2020-07-05] MEDS: Famotidine 20 MG TAB PO SCH (07:50)
[2020-07-05] MEDS: Furosemide 40 MG/4 ML VIAL SLOW IVP SCH (07:50)
[2020-07-05] MEDS: Clopidogrel Bisulfate 75 MG TAB PO SCH (07:50)
[2020-07-05] MEDS: Dexamethasone 4 mg/ml Vial SLOW IVP SCH (07:50)
[2020-07-05] MEDS: Magnesium Oxide 250 MG TAB PO SCH (07:51)
[2020-07-05] MEDS: Polyethylene Glycol 3350 17 GM Packet PO SCH (07:51)
[2020-07-05] MEDS: Furosemide 40 MG TAB PO SCH (07:51)
[2020-07-05] MEDS: Zinc Sulfate 220 MG CAP PO SCH ×2 (07:52→19:17)
--- NOTE | 2020-07-05 15:43 | PDOC.HOSPP ---
- Subjective Encounter Date: 07/05/20 Encounter Time: 15:30 Subjective: f/u for COVID PNA s/p convalescent plasma receiving Zithromax/Rocephin/Dexamethasone/Vit C/Zinc. Remains on 2L/min NC. - Objective Vital Signs & Weight: Vital Signs (12 hours) Temp Pulse Resp BP Pulse Ox 07/05/20 14:46 97.9 F 70 18 133/63 96 07/05/20 08:00 98.3 F 67 20 132/60 95 07/05/20 04:00 98.8 F 68 25 H 137/62 98 Weight Admit Weight 305 lb 9.6 oz Weight 311 lb 9.6 oz I&O: 07/04/20 07/05/20 07/06/20 06:59 06:59 06:59 Intake Total 1133 360 Output Total 450 Balance 683 360 Result Diagrams: 07/05/20 04:54 07/05/20 04:54 Additional Labs: Accuchecks 07/05/20 07/04/20 07/04/20 10:43 21:32 17:06 POC Glucose 226 H 253 H 294 H Microbiology 07/03/20 13:58 Urine Straight Catheter Urine Culture - Preliminary Non-Hemolytic Streptococcus 07/03/20 12:48 Venous blood - Right Arm Blood Culture - Preliminary Specimen has been received and culture in progress. No Growth to date. 07/03/20 12:22 Venous blood - Right Hand Blood Culture - Preliminary Specimen has been received and culture in progress. No Growth to date. Laboratory Tests 06/21/20 06/29/20 07/03/20 05:00 03:00 12:22 Hgb Plt Count Neutrophils % D-Dimer Creatinine 3.25 H Lactic Acid Troponin I B-Natriuretic Peptide 1241.2 H 3236.9 H TSH 3rd Generation 07/03/20 07/03/20 07/03/20 12:22 12:22 12:22 Hgb Plt Count Neutrophils % D-Dimer 1.07 H Creatinine Lactic Acid Troponin I 0.261 H B-Natriuretic Peptide 3745.5 H TSH 3rd Generation 07/03/20 07/03/20 07/03/20 12:22 12:22 12:22 Hgb 10.5 L Plt Count 109 L Neutrophils % 87.6 H D-Dimer Creatinine Lactic Acid 1.7 Troponin I B-Natriuretic Peptide TSH 3rd Generation 1.6026 07/03/20 07/03/20 07/04/20 16:14 18:10 05:34 Hgb Plt Count Neutrophils % 92.2 H D-Dimer Creatinine Lactic Acid Troponin I 0.267 H 0.262 H B-Natriuretic Peptide TSH 3rd Generation EKG Reviewed by me: Yes (Tele - SR with PVC's) Hospitalist ROS - Medication Medications: Active Medications Generic Name Dose Route Start Last Admin Trade Name Freq PRN Reason Stop Dose Admin Acetaminophen 650 mg 07/03/20 15:27 07/04/20 11:58 Acetaminophen 325 Mg Tab PO 650 mg Q4H PRN Administration Headache/Fever/Mild Pain (1-3) Allopurinol 200 mg 07/05/20 09:00 07/05/20 07:48 Allopurinol 100 Mg Tab PO 200 mg DAILY GLENN Administration Ascorbic Acid 1,000 mg 07/05/20 09:00 07/05/20 07:48 Ascorbic Acid 500 Mg Chewable Tablet PO 1,000 mg DAILY GLENN Administration Aspirin 81 mg 07/05/20 09:00 07/05/20 07:49 Aspirin 81 Mg Enteric Coated Tablet PO 81 mg DAILY GLENN Administration Atorvastatin Calcium 10 mg 07/04/20 21:00 07/04/20 21:20 Atorvastatin Calcium 10 Mg Tab PO 10 mg HS GLENN Administration Azithromycin 250 mg 07/04/20 21:00 07/04/20 21:20 Azithromycin 250 Mg Tab PO 07/07/20 21:01 250 mg 2100 GLENN Administration Carvedilol 6.25 mg 07/04/20 17:00 07/05/20 07:47 Carvedilol 6.25 Mg Tab PO 6.25 mg BID-WM GLENN Administration Cholecalciferol 1,000 units 07/05/20 09:00 07/05/20 07:49 Cholecalciferol 1,000 Units (25 Mcg) Tab PO 1,000 units DAILY GLENN Administration Clopidogrel Bisulfate 75 mg 07/05/20 09:00 07/05/20 07:50 Clopidogrel Bisulfate 75 Mg Tab PO 75 mg DAILY GLENN Administration Dexamethasone 8 mg 07/04/20 09:00 07/05/20 07:50 Dexamethasone 4 Mg/Ml Vial SLOW IVP 8 mg DAILY GLENN Administration Enoxaparin Sodium 120 mg 07/03/20 21:00 07/04/20 21:20 Enoxaparin Sodium 120 Mg/0.8 Ml Syringe SC 120 mg 2100 GLENN Administration Famotidine 20 mg 07/04/20 09:00 07/05/20 07:50 Famotidine 20 Mg Tab PO 20 mg DAILY GLENN Administration Furosemide 40 mg 07/04/20 09:00 07/05/20 07:50 Furosemide 40 Mg/4 Ml Vial SLOW IVP 40 mg DAILY GLENN Administration Furosemide 40 mg 07/05/20 09:00 07/05/20 07:51 Furosemide 40 Mg Tab PO Not Given QAM [facility] Ceftriaxone Sodium 2 gm/ 100 mls @ 200 mls/hr 07/04/20 20:30 07/04/20 21:21 Sodium Chloride IVPB 100 mls Q24HR GLENN Administration Insulin Human Isoph/Insulin Regular 10 units 07/04/20 21:00 07/05/20 07:44 Humulin 70/30 (300 Units/3 Ml Vial) SC 10 unit BID GLENN Administration Insulin Human Lispro 0 units 07/03/20 15:40 07/05/20 12:18 Humalog 300 Units/3 Ml Vial SC 3 unit .MILD SLIDING SCALE PRN Administration Mild Correctional Scale Levothyroxine Sodium 50 mcg 07/05/20 06:00 07/05/20 06:37 Levothyroxine Sodium 50 Mcg Tab PO 50 mcg 0600 [facility] Administration Magnesium Oxide 250 mg 07/05/20 09:00 07/05/20 07:51 Magnesium Oxide 250 Mg Tab PO 250 mg DAILY GLENN Administration Ondansetron HCl 4 mg 07/03/20 15:27 07/05/20 02:02 Ondansetron Pf 4 Mg/2 Ml Vial IVP 4 mg Q6H PRN Administration Nausea/Vomiting Pantoprazole Sodium 40 mg 07/05/20 09:00 07/05/20 07:51 Pantoprazole 40 Mg Tab PO 40 mg DAILY GLENN Administration Polyethylene Glycol 17 gm 07/05/20 09:00 07/05/20 07:51 Polyethylene Glycol 3350 17 Gm Packet PO 17 gm DAILY GLENN Administration Zinc Sulfate 220 mg 07/04/20 21:00 07/05/20 07:52 Zinc Sulfate 220 Mg Cap PO 220 mg BID GLENN Administration - Exam General Appearance: NAD, awake alert Eye: PERRL, anicteric sclera ENT: normocephalic atraumatic, no oropharyngeal lesions Neck: supple, symmetric, no JVD, no thyromegaly, no lymphadenopathy Heart: RRR, no gallops, no rubs, normal peripheral pulses Heart - other findings: S1, S2 Respiratory: rhonchi, tachypneic Respiratory - other findings: diminished in bases Gastrointestinal: soft, non-tender, non-distended, normal bowel sounds, no palpable masses Gastrointestinal - other findings: obese Extremities: no cyanosis, no clubbing, no edema Skin: normal turgor, no lesions Neurological: cranial nerve grossly intact, no new deficit Neurological - other findings: blindness bilat(chronic) Musculoskeletal: normal tone, generalized weakness Psychiatric: normal affect, A&O x 3, somnolent Hosp A/P (1) Pneumonia due to COVID-19 virus Code(s): U07.1 - COVID-19; J12.89 - OTHER VIRAL PNEUMONIA Status: Acute Plan: Continue Zithromax/Rocephin/Dexamethasone/O2, s/p convalescent plasma (2) Acute respiratory failure with hypoxia Code(s): J96.01 - ACUTE RESPIRATORY FAILURE WITH HYPOXIA Status: Acute Plan: Continue mgmt as outlined above, O2 supplementation (3) Acute kidney injury superimposed on CKD Code(s): N17.9 - ACUTE KIDNEY FAILURE, UNSPECIFIED; N18.9 - CHRONIC KIDNEY DISEASE, UNSPECIFIED Status: Acute Plan: Improved, continue supportive mgmt, Lasix IV, avoid nephrotoxic meds and limit contrast (4) Acute on chronic systolic (congestive) heart failure Code(s): I50.23 - ACUTE ON CHRONIC SYSTOLIC (CONGESTIVE) HEART FAILURE Status: Acute (5) UTI (urinary tract infection) Status: Acute Qualifiers: Urinary tract infection type: acute cystitis Hematuria presence: without hematuria Qualified Code(s): N30.00 - Acute cystitis without hematuria Plan: Presumptive Enterococcus spp, continue Rocephin/Zithromax, await final sensitivities (6) Physical deconditioning Code(s): R53.81 - OTHER MALAISE Status: Acute (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
[2020-07-05] MEDS: cefTRIAXone\\ROCEPHIN 2 GM in Sodium Chloride 0.9% 100 ML IVPB SCH (19:16)
[2020-07-05] MEDS: Atorvastatin Calcium 10 MG TAB PO SCH (19:17)
[2020-07-05] MEDS: Enoxaparin Sodium 120 MG/0.8 ML SYRINGE SC SCH (19:17)
[2020-07-05] MEDS: Azithromycin 250 MG TAB PO SCH (19:17)
[2020-07-06 05:27] LABS: #Lymphocytes 0.3 thou/uL (1.20-3.40); #Monocytes 0.3 thou/uL (0.11-0.59); #Neutrophils 6.4 thou/uL (1.40-6.50); %Lymphocytes 3.9 % (21.0-51.0); %Monocytes 3.9 % (0.0-10.0); %Neutrophils 92.2 % (42.0-75.0); Hemoglobin 9.4 g/dL (12.0-16.0); Mean Corpuscular HGB CONC 30.7 g/dL (32.0-36.0); Mean Corpuscular Hemoglobin 26.4 pg (27.0-31.0); Mean Corpuscular Volume 85.9 fL (78.0-98.0); Mean Platelet Volume 9.5 fL (7.4-10.4); Platelet Count 184 thou/uL (130-400); RBC Distribution Width 16.9 % (11.5-14.5); Red Blood Cell (RBC) Count 3.55 mill/uL (4.20-5.40)
[2020-07-06] MEDS: HumaLOG 300 UNITS/3 ML VIAL SC PRN ×3 (05:43→17:36)
[2020-07-06 05:50] LABS: Anion Gap 15 mmol/L (10-20); BUN (Urea Nitrogen) 67 mg/dL (9.8-20.1); CRP (Inflammatory) 13.49 mg/dL (= or < 0.5); Calc. Creatinine Clearance 42 mL/min (70-130); Calcium 8.8 mg/dL (7.8-10.44); Carbon Dioxide 26 mmol/L (23-31); Chloride 102 mmol/L (98-107); Glucose 197 mg/dL (80-115); Potassium 4.5 mmol/L (3.5-5.1); Sodium 138 mmol/L (136-145)
[2020-07-06] MEDS: Levothyroxine Sodium 50 MCG TAB PO SCH (06:01)
[2020-07-06] MEDS: Allopurinol 100 MG TAB PO SCH (08:00)
[2020-07-06] MEDS: Clopidogrel Bisulfate 75 MG TAB PO SCH (08:00)
[2020-07-06] MEDS: Magnesium Oxide 250 MG TAB PO SCH (08:00)
[2020-07-06] MEDS: Furosemide 40 MG/4 ML VIAL SLOW IVP SCH (08:00)
[2020-07-06] MEDS: Famotidine 20 MG TAB PO SCH (08:00)
[2020-07-06] MEDS: Ascorbic Acid 500 mg Chewable Tablet PO SCH ×2 (08:01→09:00)
[2020-07-06] MEDS: Cholecalciferol 1,000 UNITS (25 MCG) TAB PO SCH (08:01)
[2020-07-06] MEDS: Dexamethasone 4 mg/ml Vial SLOW IVP SCH (08:01)
[2020-07-06] MEDS: Zinc Sulfate 220 MG CAP PO SCH ×2 (08:01→19:24)
[2020-07-06] MEDS: Carvedilol 6.25 MG TAB PO SCH ×2 (08:02→17:35)
[2020-07-06] MEDS: Aspirin 81 mg Enteric Coated Tablet PO SCH (08:02)
[2020-07-06] MEDS: Furosemide 40 MG TAB PO SCH ×2 (08:03→08:14)
[2020-07-06] MEDS: Polyethylene Glycol 3350 17 GM Packet PO SCH ×2 (08:08→16:25)
[2020-07-06] MEDS: HumuLIN 70/30 (300 UNITS/3 ML VIAL) SC SCH ×2 (08:09→19:22)
[2020-07-06] MEDS: Nystatin Powder 15 GM BOT TOP PRN (08:31)
--- NOTE | 2020-07-06 14:51 | PDOC.HOSPP ---
- Subjective Encounter Date: 07/06/20 Encounter Time: 14:50 Subjective: f/u for COVID PNA on Rocephin/Zithromax/Decadron/Lovenox/Vit C/Zinc. Remains on 3L/min NC. - Objective Vital Signs & Weight: Vital Signs (12 hours) Temp Pulse Resp BP Pulse Ox 07/06/20 11:00 98.6 F 70 18 126/60 95 07/06/20 08:20 98.5 F 73 24 H 141/64 H 95 07/06/20 08:02 95 07/06/20 04:00 98.1 F 70 22 H 135/63 96 Weight Admit Weight 305 lb 9.6 oz Weight 311 lb I&O: 07/05/20 07/06/20 07/07/20 06:59 06:59 06:59 Intake Total 1133 720 Output Total 450 Balance 683 720 Result Diagrams: 07/06/20 04:49 07/06/20 04:49 Additional Labs: Accuchecks 07/06/20 07/06/20 07/05/20 11:02 05:07 21:06 POC Glucose 213 H 191 H 214 H 07/05/20 07/05/20 15:31 05:23 POC Glucose 197 H 225 H Microbiology 07/03/20 13:58 Urine Straight Catheter Urine Culture - Final Vanc-resistant Enterococcus 07/03/20 13:58 Urine Straight Catheter Urine Culture - Preliminary Non-Hemolytic Streptococcus 07/03/20 12:48 Venous blood - Right Arm Blood Culture - Preliminary Specimen has been received and culture in progress. No Growth to date. 07/03/20 12:22 Venous blood - Right Hand Blood Culture - Preliminary Specimen has been received and culture in progress. No Growth to date. Laboratory Tests 06/21/20 06/29/20 07/03/20 05:00 03:00 12:22 Hgb Plt Count Neutrophils % D-Dimer Creatinine 3.25 H Lactic Acid Ferritin Troponin I C-Reactive Protein B-Natriuretic Peptide 1241.2 H 3236.9 H TSH 3rd Generation 07/03/20 07/03/20 07/03/20 12:22 12:22 12:22 Hgb Plt Count Neutrophils % D-Dimer 1.07 H Creatinine Lactic Acid Ferritin Troponin I 0.261 H C-Reactive Protein B-Natriuretic Peptide 3745.5 H TSH 3rd Generation 07/03/20 07/03/20 07/03/20 12:22 12:22 12:22 Hgb 10.5 L Plt Count 109 L Neutrophils % 87.6 H D-Dimer Creatinine Lactic Acid 1.7 Ferritin Troponin I C-Reactive Protein B-Natriuretic Peptide TSH 3rd Generation 1.6026 07/03/20 07/03/20 07/04/20 16:14 18:10 05:34 Hgb Plt Count Neutrophils % 92.2 H D-Dimer Creatinine Lactic Acid Ferritin Troponin I 0.267 H 0.262 H C-Reactive Protein B-Natriuretic Peptide TSH 3rd Generation 07/06/20 07/06/20 07/06/20 04:49 04:49 04:49 Hgb Plt Count Neutrophils % D-Dimer 0.53 H Creatinine Lactic Acid Ferritin 1263.95 H Troponin I C-Reactive Protein 13.49 H B-Natriuretic Peptide [facility] 3rd Generation EKG Reviewed by me: Yes (Tele - SR) Hospitalist ROS - Medication Medications: Active Medications Generic Name Dose Route Start Last Admin Trade Name Freq PRN Reason Stop Dose Admin Acetaminophen 650 mg 07/03/20 15:27 07/04/20 11:58 Acetaminophen 325 Mg Tab PO 650 mg Q4H PRN Administration Headache/Fever/Mild Pain (1-3) Allopurinol 200 mg 07/05/20 09:00 07/06/20 08:00 Allopurinol 100 Mg Tab PO 200 mg DAILY GLENN Administration Ascorbic Acid 1,000 mg 07/05/20 09:00 07/06/20 09:00 Ascorbic Acid 500 Mg Chewable Tablet PO Not Given DAILY GLENN Aspirin 81 mg 07/05/20 09:00 07/06/20 08:02 Aspirin 81 Mg Enteric Coated Tablet PO 81 mg DAILY GLENN Administration Atorvastatin Calcium 10 mg 07/04/20 21:00 07/05/20 19:17 Atorvastatin Calcium 10 Mg Tab PO 10 mg HS GLENN Administration Azithromycin 250 mg 07/04/20 21:00 07/05/20 19:17 Azithromycin 250 Mg Tab PO 07/07/20 21:01 250 mg 2100 GLENN Administration Carvedilol 6.25 mg 07/04/20 17:00 07/06/20 08:02 Carvedilol 6.25 Mg Tab PO 6.25 mg BID- GLENN Administration Cholecalciferol 1,000 units 07/05/20 09:00 07/06/20 08:01 Cholecalciferol 1,000 Units (25 Mcg) Tab PO 1,000 units DAILY GLENN Administration Clopidogrel Bisulfate 75 mg 07/05/20 09:00 07/06/20 08:00 Clopidogrel Bisulfate 75 Mg Tab PO 75 mg DAILY GLENN Administration Dexamethasone 8 mg 07/04/20 09:00 07/06/20 08:01 Dexamethasone 4 Mg/Ml Vial SLOW IVP 8 mg DAILY GLENN Administration Famotidine 20 mg 07/04/20 09:00 07/06/20 08:00 Famotidine 20 Mg Tab PO 20 mg DAILY GLENN Administration Furosemide 40 mg 07/05/20 09:00 07/06/20 08:14 Furosemide 40 Mg Tab PO Not Given QAM GLENN Ceftriaxone Sodium 2 gm/ 100 mls @ 200 mls/hr 07/04/20 20:30 07/05/20 19:16 Sodium Chloride IVPB 100 mls Q24HR GLENN Administration Insulin Human Isoph/Insulin Regular 10 units 07/04/20 21:00 07/06/20 08:09 Humulin 70/30 (300 Units/3 Ml Vial) SC 10 unit BID GLENN Administration Insulin Human Lispro 0 units 07/03/20 15:40 07/06/20 12:45 Humalog 300 Units/3 Ml Vial SC 3 unit .MILD SLIDING SCALE PRN Administration Mild Correctional Scale Levothyroxine Sodium 50 mcg 07/05/20 06:00 07/06/20 06:01 Levothyroxine Sodium 50 Mcg Tab PO 50 mcg 0600 GLENN Administration Magnesium Oxide 250 mg 07/05/20 09:00 07/06/20 08:00 Magnesium Oxide 250 Mg Tab PO 250 mg DAILY GLENN Administration Nystatin 1 gm 07/04/20 10:59 07/06/20 08:31 Nystatin Powder 15 Gm Bot TOP 1 gm BID PRN Administration Topical Irritations Ondansetron HCl 4 mg 07/03/20 15:27 07/05/20 02:02 Ondansetron Pf 4 Mg/2 Ml Vial IVP 4 mg Q6H PRN Administration Nausea/Vomiting Pantoprazole Sodium 40 mg 07/05/20 09:00 07/06/20 08:02 Pantoprazole 40 Mg Tab PO 40 mg DAILY GLENN Administration Polyethylene Glycol 17 gm 07/05/20 09:00 07/06/20 08:08 Polyethylene Glycol 3350 17 Gm Packet PO Not Given DAILY GLENN Sodium Chloride 10 ml 07/06/20 09:00 07/06/20 08:07 Flush - Normal Saline 10 Ml Syringe IVF 10 ml Q12HR GLENN Administration Zinc Sulfate 220 mg 07/04/20 21:00 07/06/20 08:01 Zinc Sulfate 220 Mg Cap PO 220 mg BID GLENN Administration - Exam General Appearance: NAD, awake alert Eye: PERRL, anicteric sclera ENT: normocephalic atraumatic, no oropharyngeal lesions Neck: supple, symmetric, no JVD, no thyromegaly, no lymphadenopathy Heart: RRR, no gallops, no rubs, normal peripheral pulses Heart - other findings: S1, S2 Respiratory: tachypneic Respiratory - other findings: diminished bilat, occ rhonchi Gastrointestinal: soft, non-tender, non-distended, normal bowel sounds, no palpable masses, no hepatomegaly Gastrointestinal - other findings: obese Extremities: no cyanosis, no clubbing, 1+ LE edema Skin: normal turgor Neurological: cranial nerve grossly intact, no new deficit Musculoskeletal: normal tone, generalized weakness Psychiatric: A&O x 3, flat affect Hosp A/P (1) Pneumonia due to COVID-19 virus Code(s): U07.1 - COVID-19; J12.89 - OTHER VIRAL PNEUMONIA Status: Acute Plan: Continue Rocephin/Zithromax/Decadron/Lovenox/Vit C/Zinc, wean O2 as clinically tolerated (2) Acute respiratory failure with hypoxia Code(s): J96.01 - ACUTE RESPIRATORY FAILURE WITH HYPOXIA Status: Acute Plan: Continue O2 @ 3L/min NC, may need outpt O2 (3) Acute kidney injury superimposed on CKD Code(s): N17.9 - ACUTE KIDNEY FAILURE, UNSPECIFIED; N18.9 - CHRONIC KIDNEY D ISEASE, UNSPECIFIED Status: Acute Plan: Improved, d/c Lasix IV, decrease Lovenox 60mg sc daily, avoid nephrotoxic meds and limit contrast (4) Acute on chronic systolic (congestive) heart failure Code(s): I50.23 - ACUTE ON CHRONIC SYSTOLIC (CONGESTIVE) HEART FAILURE Status: Acute Plan: Stable currently, continue Lasix 40mg po daily (5) UTI (urinary tract infection) Status: Acute Qualifiers: Urinary tract infection type: acute cystitis Hematuria presence: without hematuria Qualified Code(s): N30.00 - Acute cystitis without hematuria Plan: 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
[2020-07-06] MEDS: cefTRIAXone\\ROCEPHIN 2 GM in Sodium Chloride 0.9% 100 ML IVPB SCH (19:23)
[2020-07-06] MEDS: Atorvastatin Calcium 10 MG TAB PO SCH (19:24)
[2020-07-06] MEDS: Azithromycin 250 MG TAB PO SCH (19:24)
[2020-07-07] MEDS: Levothyroxine Sodium 50 MCG TAB PO SCH (05:18)
[2020-07-07 05:21] LABS: #Lymphocytes 0.3 thou/uL (1.20-3.40); #Monocytes 0.3 thou/uL (0.11-0.59); #Neutrophils 5.7 thou/uL (1.40-6.50); %Eosinophils 0.1 % (0.0-10.0); %Lymphocytes 5.3 % (21.0-51.0); %Monocytes 4.4 % (0.0-10.0); %Neutrophils 90.1 % (42.0-75.0); Hemoglobin 9.9 g/dL (12.0-16.0); Mean Corpuscular HGB CONC 29.9 g/dL (32.0-36.0); Mean Corpuscular Hemoglobin 25.5 pg (27.0-31.0); Mean Corpuscular Volume 85.2 fL (78.0-98.0); Mean Platelet Volume 9.2 fL (7.4-10.4); Platelet Count 199 thou/uL (130-400); RBC Distribution Width 16.8 % (11.5-14.5); Red Blood Cell (RBC) Count 3.86 mill/uL (4.20-5.40); White Blood Cell (WBC) Count 6.3 thou/uL (4.8-10.8)
[2020-07-07] MEDS: HumaLOG 300 UNITS/3 ML VIAL SC PRN ×2 (05:23→12:11)
[2020-07-07 05:38] LABS: Anion Gap 17 mmol/L (10-20); BUN (Urea Nitrogen) 73 mg/dL (9.8-20.1); CRP (Inflammatory) 8.97 mg/dL (= or < 0.5); Calc. Creatinine Clearance 43 mL/min (70-130); Calcium 8.8 mg/dL (7.8-10.44); Carbon Dioxide 20 mmol/L (23-31); Chloride 104 mmol/L (98-107); Glucose 192 mg/dL (80-115); Potassium 4.6 mmol/L (3.5-5.1); Sodium 136 mmol/L (136-145)
[2020-07-07] MEDS: Magnesium Oxide 250 MG TAB PO SCH (08:10)
[2020-07-07] MEDS: Enoxaparin Sodium 60 MG/0.6 ML SYRINGE SC SCH (08:11)
[2020-07-07] MEDS: Famotidine 20 MG TAB PO SCH (08:11)
[2020-07-07] MEDS: Allopurinol 100 MG TAB PO SCH (08:11)
[2020-07-07] MEDS: Zinc Sulfate 220 MG CAP PO SCH ×2 (08:12→21:20)
[2020-07-07] MEDS: Aspirin 81 mg Enteric Coated Tablet PO SCH (08:12)
[2020-07-07] MEDS: Cholecalciferol 1,000 UNITS (25 MCG) TAB PO SCH (08:12)
[2020-07-07] MEDS: Dexamethasone 4 mg/ml Vial SLOW IVP SCH (08:12)
[2020-07-07] MEDS: Carvedilol 6.25 MG TAB PO SCH ×2 (08:12→17:16)
[2020-07-07] MEDS: Clopidogrel Bisulfate 75 MG TAB PO SCH (08:13)
[2020-07-07] MEDS: Furosemide 40 MG TAB PO SCH (08:13)
[2020-07-07] MEDS: HumuLIN 70/30 (300 UNITS/3 ML VIAL) SC SCH ×2 (08:18→21:19)
[2020-07-07] MEDS: Ascorbic Acid 500 mg Chewable Tablet PO SCH (09:20)
[2020-07-07] MEDS: Polyethylene Glycol 3350 17 GM Packet PO SCH (09:20)
[2020-07-07] MEDS: Nystatin Powder 15 GM BOT TOP PRN (09:30)
[2020-07-07 09:43] LABS: Hemoglobin 10.3 g/dL (12.0-16.0); Platelet Count 222 thou/uL (130-400)
--- NOTE | 2020-07-07 13:53 | PDOC.HOSPP ---
- Subjective Encounter Date: 07/07/20 Encounter Time: 13:50 Subjective: f/u for COVID PNA on Rocephin/Zithromax/Decadron/Vit C/Zinc/O2 @ 3L/min NC. - Objective Vital Signs & Weight: Vital Signs (12 hours) Temp Pulse Pulse Pulse Resp BP BP 07/07/20 12:30 07/07/20 11:34 97.7 F 69 18 07/07/20 10:20 70 68 148/67 H 122/60 07/07/20 08:25 98.0 F 70 17 07/07/20 02:45 97.6 F 71 18 BP Pulse Ox Pulse Ox Pulse Ox 07/07/20 12:30 93 L 07/07/20 11:34 130/60 90 L 07/07/20 10:20 88 L 84 L 07/07/20 08:25 152/65 H 95 07/07/20 02:45 141/63 H 95 Weight Admit Weight 305 lb 9.6 oz Weight 308 lb 6.4 oz I&O: 07/06/20 07/07/20 07/08/20 06:59 06:59 06:59 Intake Total 720 1360 Output Total 500 Balance 720 860 Result Diagrams: 07/07/20 09:11 07/07/20 09:10 Additional Labs: Accuchecks 07/07/20 07/07/20 07/06/20 11:31 05:21 19:29 POC Glucose 193 H 181 H 180 H 07/06/20 17:02 POC Glucose 168 H Microbiology 07/03/20 13:58 Urine Straight Catheter Urine Culture - Final Vanc-resistant Enterococcus 07/03/20 13:58 Urine Straight Catheter Urine Culture - Preliminary Non-Hemolytic Streptococcus 07/03/20 12:48 Venous blood - Right Arm Blood Culture - Preliminary Specimen has been received and culture in progress. No Growth to date. 07/03/20 12:22 Venous blood - Right Hand Blood Culture - Preliminary Specimen has been received and culture in progress. No Growth to date. Laboratory Tests 06/21/20 06/29/20 07/03/20 05:00 03:00 12:22 Hgb Plt Count Neutrophils % D-Dimer Creatinine 3.25 H Lactic Acid Ferritin Troponin I C-Reactive Protein B-Natriuretic Peptide 1241.2 H 3236.9 H TSH 3rd Generation 07/03/20 07/03/20 07/03/20 12:22 12:22 12:22 Hgb Plt Count Neutrophils % D-Dimer 1.07 H Creatinine Lactic Acid Ferritin Troponin I 0.261 H C-Reactive Protein B-Natriuretic Peptide 3745.5 H TSH 3rd Generation 07/03/20 07/03/20 07/03/20 12:22 12:22 12:22 Hgb 10.5 L Plt Count 109 L Neutrophils % 87.6 H D-Dimer Creatinine Lactic Acid 1.7 Ferritin Troponin I C-Reactive Protein B-Natriuretic Peptide TSH 3rd Generation 1.6026 07/03/20 07/03/20 07/04/20 16:14 18:10 05:34 Hgb Plt Count Neutrophils % 92.2 H D-Dimer Creatinine Lactic Acid Ferritin Troponin I 0.267 H 0.262 H C-Reactive Protein B-Natriuretic Peptide TSH 3rd Generation 07/06/20 07/06/20 07/06/20 04:49 04:49 04:49 Hgb Plt Count Neutrophils % D-Dimer 0.53 H Creatinine Lactic Acid Ferritin 1263.95 H Troponin I C-Reactive Protein 13.49 H B-Natriuretic Peptide [facility] 3rd Generation EKG Reviewed by me: Yes (Tele - SR) Hospitalist ROS - Medication Medications: Active Medications Generic Name Dose Route Start Last Admin Trade Name Freq PRN Reason Stop Dose Admin Acetaminophen 650 mg 07/03/20 15:27 07/04/20 11:58 Acetaminophen 325 Mg Tab PO 650 mg Q4H PRN Administration Headache/Fever/Mild Pain (1-3) Allopurinol 200 mg 07/05/20 09:00 07/07/20 08:11 Allopurinol 100 Mg Tab PO 200 mg DAILY GLENN Administration Ascorbic Acid 1,000 mg 07/05/20 09:00 07/07/20 09:20 Ascorbic Acid 500 Mg Chewable Tablet PO Not Given DAILY GLENN Aspirin 81 mg 07/05/20 09:00 07/07/20 08:12 Aspirin 81 Mg Enteric Coated Tablet PO 81 mg DAILY GLENN Administration Atorvastatin Calcium 10 mg 07/04/20 21:00 07/06/20 19:24 Atorvastatin Calcium 10 Mg Tab PO 10 mg HS GLENN Administration Azithromycin 250 mg 07/04/20 21:00 07/06/20 19:24 Azithromycin 250 Mg Tab PO 07/07/20 21:01 250 mg 2100 GLENN Administration Carvedilol 6.25 mg 07/04/20 17:00 07/07/20 08:12 Carvedilol 6.25 Mg Tab PO 6.25 mg BID-WM GLENN Administration Cholecalciferol 1,000 units 07/05/20 09:00 07/07/20 08:12 Cholecalciferol 1,000 Units (25 Mcg) Tab PO 1,000 units DAILY GLENN Administration Clopidogrel Bisulfate 75 mg 07/05/20 09:00 07/07/20 08:13 Clopidogrel Bisulfate 75 Mg Tab PO 75 mg DAILY GLENN Administration Dexamethasone 8 mg 07/04/20 09:00 07/07/20 08:12 Dexamethasone 4 Mg/Ml Vial SLOW IVP 8 mg DAILY GLENN Administration Enoxaparin Sodium 60 mg 07/07/20 09:00 07/07/20 08:11 Enoxaparin Sodium 60 Mg/0.6 Ml Syringe SC 60 mg DAILY GLENN Administration Famotidine 20 mg 07/04/20 09:00 07/07/20 08:11 Famotidine 20 Mg Tab PO 20 mg DAILY GLENN Administration Furosemide 40 mg 07/05/20 09:00 07/07/20 08:13 Furosemide 40 Mg Tab PO 40 mg QAM GLENN Administration Ceftriaxone Sodium 2 gm/ 100 mls @ 200 mls/hr 07/04/20 20:30 07/06/20 19:23 Sodium Chloride IVPB 100 mls Q24HR GLENN Administration Insulin Human Isoph/Insulin Regular 10 units 07/04/20 21:00 07/07/20 08:18 Humulin 70/30 (300 Units/3 Ml Vial) SC 10 unit BID GLENN Administration Insulin Human Lispro 0 units 07/03/20 15:40 07/07/20 12:11 Humalog 300 Units/3 Ml Vial SC 2 unit .MILD SLIDING SCALE PRN Administration Mild Correctional Scale Levothyroxine Sodium 50 mcg 07/05/20 06:00 07/07/20 05:18 Levothyroxine Sodium 50 Mcg Tab PO 50 mcg 0600 GLENN Administration Magnesium Oxide 250 mg 07/05/20 09:00 07/07/20 08:10 Magnesium Oxide 250 Mg Tab PO 250 mg DAILY GLENN Administration Nystatin 1 gm 07/04/20 10:59 07/07/20 09:30 Nystatin Powder 15 Gm Bot TOP 1 gm BID PRN Administration Topical Irritations Ondansetron HCl 4 mg 07/03/20 15:27 07/05/20 02:02 Ondansetron Pf 4 Mg/2 Ml Vial IVP 4 mg Q6H PRN Administration Nausea/Vomiting Pantoprazole Sodium 40 mg 07/05/20 09:00 07/07/20 08:13 Pantoprazole 40 Mg Tab PO 40 mg DAILY GLENN Administration Polyethylene Glycol 17 gm 07/05/20 09:00 07/07/20 09:20 Polyethylene Glycol 3350 17 Gm Packet PO Not Given DAILY GLENN Sodium Chloride 10 ml 07/06/20 09:00 07/07/20 08:13 Flush - Normal Saline 10 Ml Syringe IVF 10 ml Q12HR GLENN Administration Zinc Sulfate 220 mg 07/04/20 21:00 07/07/20 08:12 Zinc Sulfate 220 Mg Cap PO 220 mg BID GLENN Administration - Exam General Appearance: NAD, awake alert Eye: PERRL, anicteric sclera ENT: normocephalic atraumatic, no oropharyngeal lesions Neck: supple, symmetric, no JVD, no thyromegaly Heart: RRR, no gallops, no rubs, normal peripheral pulses Heart - other findings: S1, S2 Respiratory: no tachypnea Respiratory - other findings: diminished in bases bilat, few scattered rhonchi Gastrointestinal: soft, non-tender, non-distended, normal bowel sounds, no palpable masses Gastrointestinal - other findings: obese Extremities: no cyanosis, no clubbing Skin: normal turgor, no lesions Neurological: cranial nerve grossly intact, no new deficit Neurological - other findings: blindness bilat(chronic) Musculoskeletal: normal tone, generalized weakness Psychiatric: normal affect, A&O x 3 Hosp A/P (1) Pneumonia due to COVID-19 virus Code(s): U07.1 - COVID-19; J12.89 - OTHER VIRAL PNEUMONIA Status: Acute Plan: Continue Rocephin/Zithromax/Decadron/Vit C/Zinc, O2 @ 3L/min NC (2) Acute respiratory failure with hypoxia Code(s): J96.01 - ACUTE RESPIRATORY FAILURE WITH HYPOXIA Status: Acute Plan: Continue O2 supplementation, home O2 for d/c (3) Acute kidney injury superimposed on CKD Code(s): N17.9 - ACUTE KIDNEY FAILURE, UNSPECIFIED; N18.9 - CHRONIC KIDNEY DISEASE, UNSPECIFIED Status: Acute (4) Acute on chronic systolic (congestive) heart failure Code(s): I50.23 - ACUTE ON CHRONIC SYSTOLIC (CONGESTIVE) HEART FAILURE Status: Acute Plan: Resolved, continue Lasix po (5) UTI (urinary tract infection) Status: Acute Qualifiers: Urinary tract infection type: acute cystitis Hematuria presence: without hematuria Qualified Code(s): N30.00 - Acute cystitis without hematuria 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
[2020-07-07] MEDS: Atorvastatin Calcium 10 MG TAB PO SCH (21:17)
[2020-07-07] MEDS: cefTRIAXone\\ROCEPHIN 2 GM in Sodium Chloride 0.9% 100 ML IVPB SCH (21:17)
[2020-07-07] MEDS: Azithromycin 250 MG TAB PO SCH (21:18)
[2020-07-08] MEDS: Levothyroxine Sodium 50 MCG TAB PO SCH (05:14)
[2020-07-08] MEDS: Enoxaparin Sodium 60 MG/0.6 ML SYRINGE SC SCH (08:32)
[2020-07-08] MEDS: Polyethylene Glycol 3350 17 GM Packet PO SCH (08:32)
[2020-07-08] MEDS: Allopurinol 100 MG TAB PO SCH (08:33)
[2020-07-08] MEDS: Furosemide 40 MG TAB PO SCH (08:33)
[2020-07-08] MEDS: HumuLIN 70/30 (300 UNITS/3 ML VIAL) SC SCH ×2 (08:33→19:49)
[2020-07-08] MEDS: Famotidine 20 MG TAB PO SCH (08:34)
[2020-07-08] MEDS: Dexamethasone 4 mg/ml Vial SLOW IVP SCH (08:34)
[2020-07-08] MEDS: Ascorbic Acid 500 mg Chewable Tablet PO SCH (08:34)
[2020-07-08] MEDS: Cholecalciferol 1,000 UNITS (25 MCG) TAB PO SCH (08:34)
[2020-07-08] MEDS: Zinc Sulfate 220 MG CAP PO SCH ×2 (08:35→19:49)
[2020-07-08] MEDS: Clopidogrel Bisulfate 75 MG TAB PO SCH (08:35)
[2020-07-08] MEDS: Aspirin 81 mg Enteric Coated Tablet PO SCH (08:35)
[2020-07-08] MEDS: Carvedilol 6.25 MG TAB PO SCH ×2 (08:35→17:21)
[2020-07-08] MEDS: Magnesium Oxide 250 MG TAB PO SCH (08:40)
[2020-07-08] MEDS ORDERED: Dexamethasone 4 mg/ml Vial SLOW IVP SCH (10:51)
[2020-07-08] MEDS ORDERED: Dexamethasone 10 MG/ML VIAL SLOW IVP SCH (11:00)
--- NOTE | 2020-07-08 11:02 | PDOC.HOSPP ---
- Subjective Encounter Date: 07/08/20 Encounter Time: 10:45 Subjective: f/u for COVID PNA on Rocephin/Dexamethasone/Lovenox/Vit C/Zinc/O2 @ 5L/min NC. - Objective Vital Signs & Weight: Vital Signs (12 hours) Temp Pulse Resp BP Pulse Ox 07/08/20 08:57 98.3 F 74 19 166/71 H 95 07/08/20 08:35 95 07/08/20 05:22 98.5 F 71 20 142/66 H 96 Weight Admit Weight 305 lb 9.6 oz Weight 311 lb 9.6 oz I&O: 07/07/20 07/08/20 07/09/20 06:59 06:59 06:59 Intake Total 1360 700 Output Total 500 395 Balance 860 305 Result Diagrams: 07/07/20 09:11 07/07/20 09:10 Additional Labs: Accuchecks 07/08/20 07/07/20 07/07/20 05:18 20:53 16:48 POC Glucose 181 H 190 H 153 H 07/07/20 11:31 POC Glucose 193 H Microbiology 07/03/20 13:58 Urine Straight Catheter Urine Culture - Final Vanc-resistant Enterococcus 07/03/20 13:58 Urine Straight Catheter Urine Culture - Preliminary Non-Hemolytic Streptococcus 07/03/20 12:48 Venous blood - Right Arm Blood Culture - Preliminary Specimen has been received and culture in progress. No Growth to date. 07/03/20 12:22 Venous blood - Right Hand Blood Culture - Preliminary Specimen has been received and culture in progress. No Growth to date. Laboratory Tests 06/21/20 06/29/20 07/03/20 05:00 03:00 12:22 Hgb Plt Count Neutrophils % D-Dimer Creatinine 3.25 H Lactic Acid Ferritin Troponin I C-Reactive Protein B-Natriuretic Peptide 1241.2 H 3236.9 H TSH 3rd Generation 07/03/20 07/03/20 07/03/20 12:22 12:22 12:22 Hgb Plt Count Neutrophils % D-Dimer 1.07 H Creatinine Lactic Acid Ferritin Troponin I 0.261 H C-Reactive Protein B-Natriuretic Peptide 3745.5 H TSH 3rd Generation 07/03/20 07/03/20 07/03/20 12:22 12:22 12:22 Hgb 10.5 L Plt Count 109 L Neutrophils % 87.6 H D-Dimer Creatinine Lactic Acid 1.7 Ferritin Troponin I C-Reactive Protein B-Natriuretic Peptide TSH 3rd Generation 1.6026 07/03/20 07/03/20 07/04/20 16:14 18:10 05:34 Hgb Plt Count Neutrophils % 92.2 H D-Dimer Creatinine Lactic Acid Ferritin Troponin I 0.267 H 0.262 H C-Reactive Protein B-Natriuretic Peptide TSH 3rd Generation 07/06/20 07/06/20 07/06/20 04:49 04:49 04:49 Hgb Plt Count Neutrophils % D-Dimer 0.53 H Creatinine Lactic Acid Ferritin 1263.95 H Troponin I C-Reactive Protein 13.49 H B-Natriuretic Peptide TSH 3rd Generation EKG Reviewed by me: Yes (Tele - SR) Hospitalist ROS - Medication Medications: Active Medications Generic Name Dose Route Start Last Admin Trade Name Freq PRN Reason Stop Dose Admin Acetaminophen 650 mg 07/03/20 15:27 07/04/20 11:58 Acetaminophen 325 Mg Tab PO 650 mg Q4H PRN Administration Headache/Fever/Mild Pain (1-3) Allopurinol 200 mg 07/05/20 09:00 07/08/20 08:33 Allopurinol 100 Mg Tab PO 200 mg DAILY GLENN Administration Ascorbic Acid 1,000 mg 07/05/20 09:00 07/08/20 08:34 Ascorbic Acid 500 Mg Chewable Tablet PO 1,000 mg DAILY GLENN Administration Aspirin 81 mg 07/05/20 09:00 07/08/20 08:35 Aspirin 81 Mg Enteric Coated Tablet PO 81 mg DAILY GLENN Administration Atorvastatin Calcium 10 mg 07/04/20 21:00 07/07/20 21:17 Atorvastatin Calcium 10 Mg Tab PO 10 mg HS GLENN Administration Carvedilol 6.25 mg 07/04/20 17:00 07/08/20 08:35 Carvedilol 6.25 Mg Tab PO 6.25 mg BID-WM GLENN Administration Cholecalciferol 1,000 units 07/05/20 09:00 07/08/20 08:34 Cholecalciferol 1,000 Units (25 Mcg) Tab PO 1,000 units DAILY GLENN Administration Clopidogrel Bisulfate 75 mg 07/05/20 09:00 07/08/20 08:35 Clopidogrel Bisulfate 75 Mg Tab PO 75 mg DAILY GLENN Administration Dexamethasone 8 mg 07/04/20 09:00 07/08/20 08:34 Dexamethasone 4 Mg/Ml Vial SLOW IVP 8 mg DAILY GLENN Administration Enoxaparin Sodium 60 mg 07/07/20 09:00 07/08/20 08:32 Enoxaparin Sodium 60 Mg/0.6 Ml Syringe SC 60 mg DAILY GLENN Administration Famotidine 20 mg 07/04/20 09:00 07/08/20 08:34 Famotidine 20 Mg Tab PO 20 mg DAILY GLENN Administration Furosemide 40 mg 07/05/20 09:00 07/08/20 08:33 Furosemide 40 Mg Tab PO 40 mg QAM GLENN Administration Ceftriaxone Sodium 2 gm/ 100 mls @ 200 mls/hr 07/04/20 20:30 07/07/20 21:17 Sodium Chloride IVPB 100 mls Q24HR GLENN Administration Insulin Human Isoph/Insulin Regular 10 units 07/04/20 21:00 07/08/20 08:33 Humulin 70/30 (300 Units/3 Ml Vial) SC 10 unit BID GLENN Administration Insulin Human Lispro 0 units 07/03/20 15:40 07/07/20 12:11 Humalog 300 Units/3 Ml Vial SC 2 unit .MILD SLIDING SCALE PRN Administration Mild Correctional Scale Levothyroxine Sodium 50 mcg 07/05/20 06:00 07/08/20 05:14 Levothyroxine Sodium 50 Mcg Tab PO 50 mcg 0600 GLENN Administration Magnesium Oxide 250 mg 07/05/20 09:00 07/08/20 08:40 Magnesium Oxide 250 Mg Tab PO 250 mg DAILY GLENN Administration Nystatin 1 gm 07/04/20 10:59 07/07/20 09:30 Nystatin Powder 15 Gm Bot TOP 1 gm BID PRN Administration Topical Irritations Ondansetron HCl 4 mg 07/03/20 15:27 07/05/20 02:02 Ondansetron Pf 4 Mg/2 Ml Vial IVP 4 mg Q6H PRN Administration Nausea/Vomiting Pantoprazole Sodium 40 mg 07/05/20 09:00 07/08/20 08:34 Pantoprazole 40 Mg Tab PO 40 mg DAILY GLENN Administration Polyethylene Glycol 17 gm 07/05/20 09:00 07/08/20 08:32 Polyethylene Glycol 3350 17 Gm Packet PO 17 gm DAILY GLENN Administration Sodium Chloride 10 ml 07/06/20 09:00 07/08/20 08:35 Flush - Normal Saline 10 Ml Syringe IVF 10 ml Q12HR GLENN Administration Zinc Sulfate 220 mg 07/04/20 21:00 07/08/20 08:35 Zinc Sulfate 220 Mg Cap PO 220 mg BID GLENN Administration - Exam General Appearance: NAD, awake alert Eye: PERRL, anicteric sclera ENT: normocephalic atraumatic, no oropharyngeal lesions Neck: supple, symmetric, no JVD, no thyromegaly, no lymphadenopathy Heart: RRR, no gallops, no rubs, normal peripheral pulses Heart - other findings: S1, S2 Respiratory: tachypneic Respiratory - other findings: diminished in bases, occ rhonchi Gastrointestinal: soft, non-tender, non-distended, normal bowel sounds, no palpable masses Gastrointestinal - other findings: obese Extremities: no cyanosis, no clubbing, 1+ LE edema Skin: normal turgor, no lesions Neurological: cranial nerve grossly intact, no new deficit Musculoskeletal: normal tone, generalized weakness Psychiatric: A&O x 3, somnolent Hosp A/P (1) Pneumonia due to COVID-19 virus Code(s): U07.1 - COVID-19; J12.89 - OTHER VIRAL PNEUMONIA Status: Acute Plan: Continue Rocephin/Decadron/Lovenox/Vit C/Zinc/O2 supplementation (2) Acute respiratory failure with hypoxia Code(s): J96.01 - ACUTE RESPIRATORY FAILURE WITH HYPOXIA Status: Acute Plan: Continue O2 supplementation (3) Acute kidney injury superimposed on CKD Code(s): N17.9 - ACUTE KIDNEY FAILURE, UNSPECIFIED; N18.9 - CHRONIC KIDNEY DISEASE, UNSPECIFIED Status: Acute (4) Acute on chronic systolic (congestive) heart failure Code(s): I50.23 - ACUTE ON CHRONIC SYSTOLIC (CONGESTIVE) HEART FAILURE Status: Acute (5) UTI (urinary tract infection) Status: Acute Qualifiers: Urinary tract infection type: acute cystitis Hematuria presence: without hematuria Qualified Code(s): N30.00 - Acute cystitis without hematuria (6) Physical deconditioning Code(s): R53.81 - OTHER MALAISE Status: Acute (7) Blindness - both eyes Code(s): H54.0 - BLINDNESS, BOTH EYES * DO NOT USE * Status: Chronic - Plan continue antibiotics, PT/OT, social work program coordinator, respiratory therapy, DVT proph w/SCDs Continue Dexamethasone/Rocephin/Lovenox O2 supplementation Continue Vit C 1000mg po daily Continue Zinc 220mg daily Continue Zithromax 250mg po daily Increase Decadron 10mg IV daily s/p convalescent plasma Consider for home O2 AM lab: BMP, CBC, Ferritin, CRP, D-dimer
[2020-07-08] MEDS: HumaLOG 300 UNITS/3 ML VIAL SC PRN ×2 (11:26→17:21)
[2020-07-08] MEDS: cefTRIAXone\\ROCEPHIN 2 GM in Sodium Chloride 0.9% 100 ML IVPB SCH (19:48)
[2020-07-08] MEDS: Atorvastatin Calcium 10 MG TAB PO SCH (19:49)
[2020-07-09] MEDS: Levothyroxine Sodium 50 MCG TAB PO SCH (05:01)
[2020-07-09] MEDS: HumuLIN 70/30 (300 UNITS/3 ML VIAL) SC SCH ×2 (08:56→20:55)
[2020-07-09] MEDS: Polyethylene Glycol 3350 17 GM Packet PO SCH (08:57)
[2020-07-09] MEDS: Enoxaparin Sodium 60 MG/0.6 ML SYRINGE SC SCH (08:57)
[2020-07-09] MEDS: Dexamethasone 10 MG/ML VIAL SLOW IVP SCH (08:59)
[2020-07-09] MEDS: Magnesium Oxide 250 MG TAB PO SCH (09:00)
[2020-07-09] MEDS: Ascorbic Acid 500 mg Chewable Tablet PO SCH (09:00)
[2020-07-09] MEDS: Aspirin 81 mg Enteric Coated Tablet PO SCH (09:00)
[2020-07-09] MEDS: Cholecalciferol 1,000 UNITS (25 MCG) TAB PO SCH (09:01)
[2020-07-09] MEDS: Famotidine 20 MG TAB PO SCH (09:01)
[2020-07-09] MEDS: Furosemide 40 MG TAB PO SCH (09:01)
[2020-07-09] MEDS: Allopurinol 100 MG TAB PO SCH (09:01)
[2020-07-09] MEDS: Clopidogrel Bisulfate 75 MG TAB PO SCH (09:01)
[2020-07-09] MEDS: Carvedilol 6.25 MG TAB PO SCH ×2 (09:01→17:12)
[2020-07-09] MEDS: Zinc Sulfate 220 MG CAP PO SCH ×2 (09:01→20:55)
[2020-07-09] MEDS: HumaLOG 300 UNITS/3 ML VIAL SC PRN ×2 (11:44→17:12)
--- NOTE | 2020-07-09 13:44 | PDOC.HOSPP ---
- Subjective Encounter Date: 07/09/20 Encounter Time: 13:35 Subjective: f/u for COVID PNA/hypoxic resp failure on O2 @ 5L/min NC, - Objective Vital Signs & Weight: Vital Signs (12 hours) Temp Pulse Resp BP Pulse Ox 07/09/20 12:00 75 20 137/69 91 L 07/09/20 08:32 91 L 07/09/20 08:00 98.1 F 74 20 142/71 H 92 L 07/09/20 05:13 98.3 F 71 20 148/67 H 91 L Weight Admit Weight 305 lb 9.6 oz Weight 311 lb 9.6 oz I&O: 07/08/20 07/09/20 07/10/20 06:59 06:59 06:59 Intake Total 700 720 Output Total 395 1150 Balance 305 -430 Result Diagrams: 07/07/20 09:11 07/07/20 09:10 Additional Labs: Accuchecks 07/09/20 07/09/20 07/08/20 10:44 05:10 19:57 POC Glucose 202 H 186 H 205 H 07/08/20 16:43 POC Glucose 206 H Microbiology 07/03/20 13:58 Urine Straight Catheter Urine Culture - Final Vanc-resistant Enterococcus 07/03/20 13:58 Urine Straight Catheter Urine Culture - Preliminary Non-Hemolytic Streptococcus 07/03/20 12:48 Venous blood - Right Arm Blood Culture - Preliminary Specimen has been received and culture in progress. No Growth to date. 07/03/20 12:22 Venous blood - Right Hand Blood Culture - Preliminary Specimen has been received and culture in progress. No Growth to date. Laboratory Tests 06/21/20 06/29/20 07/03/20 05:00 03:00 12:22 Hgb Plt Count Neutrophils % D-Dimer Creatinine 3.25 H Lactic Acid Ferritin Troponin I C-Reactive Protein B-Natriuretic Peptide 1241.2 H 3236.9 H TSH 3rd Generation 07/03/20 07/03/20 07/03/20 12:22 12:22 12:22 Hgb Plt Count Neutrophils % D-Dimer 1.07 H Creatinine Lactic Acid Ferritin Troponin I 0.261 H C-Reactive Protein B-Natriuretic Peptide 3745.5 H TSH 3rd Generation 07/03/20 07/03/20 07/03/20 12:22 12:22 12:22 Hgb 10.5 L Plt Count 109 L Neutrophils % 87.6 H D-Dimer Creatinine Lactic Acid 1.7 Ferritin Troponin I C-Reactive Protein B-Natriuretic Peptide TSH 3rd Generation 1.6026 07/03/20 07/03/20 07/04/20 16:14 18:10 05:34 Hgb Plt Count Neutrophils % 92.2 H D-Dimer Creatinine Lactic Acid Ferritin Troponin I 0.267 H 0.262 H C-Reactive Protein B-Natriuretic Peptide TSH 3rd Generation 07/06/20 07/06/20 07/06/20 04:49 04:49 04:49 Hgb Plt Count Neutrophils % D-Dimer 0.53 H Creatinine Lactic Acid Ferritin 1263.95 H Troponin I C-Reactive Protein 13.49 H B-Natriuretic Peptide TSH 3rd Generation EKG Reviewed by me: Yes (Tele - SR) Hospitalist ROS - Medication Medications: Active Medications Generic Name Dose Route Start Last Admin Trade Name Freq PRN Reason Stop Dose Admin Acetaminophen 650 mg 07/03/20 15:27 07/04/20 11:58 Acetaminophen 325 Mg Tab PO 650 mg Q4H PRN Administration Headache/Fever/Mild Pain (1-3) Allopurinol 200 mg 07/05/20 09:00 07/09/20 09:01 Allopurinol 100 Mg Tab PO 200 mg DAILY GLENN Administration Ascorbic Acid 1,000 mg 07/05/20 09:00 07/09/20 09:00 Ascorbic Acid 500 Mg Chewable Tablet PO 1,000 mg DAILY GLENN Administration Aspirin 81 mg 07/05/20 09:00 07/09/20 09:00 Aspirin 81 Mg Enteric Coated Tablet PO 81 mg DAILY GLENN Administration Atorvastatin Calcium 10 mg 07/04/20 21:00 07/08/20 19:49 Atorvastatin Calcium 10 Mg Tab PO 10 mg HS GLENN Administration Carvedilol 6.25 mg 07/04/20 17:00 07/09/20 09:01 Carvedilol 6.25 Mg Tab PO 6.25 mg BID-WM GLENN Administration Cholecalciferol 1,000 units 07/05/20 09:00 07/09/20 09:01 Cholecalciferol 1,000 Units (25 Mcg) Tab PO 1,000 units DAILY GLENN Administration Clopidogrel Bisulfate 75 mg 07/05/20 09:00 07/09/20 09:01 Clopidogrel Bisulfate 75 Mg Tab PO 75 mg DAILY GLENN Administration Dexamethasone 10 mg 07/09/20 09:00 07/09/20 08:59 Dexamethasone 10 Mg/Ml Vial SLOW IVP 10 mg DAILY GLENN Administration Enoxaparin Sodium 60 mg 07/07/20 09:00 07/09/20 08:57 Enoxaparin Sodium 60 Mg/0.6 Ml Syringe SC 60 mg DAILY GLENN Administration Famotidine 20 mg 07/04/20 09:00 07/09/20 09:01 Famotidine 20 Mg Tab PO 20 mg DAILY GLENN Administration Furosemide 40 mg 07/05/20 09:00 07/09/20 09:01 Furosemide 40 Mg Tab PO 40 mg QAM GLENN Administration Ceftriaxone Sodium 2 gm/ 100 mls @ 200 mls/hr 07/04/20 20:30 07/08/20 19:48 Sodium Chloride IVPB 100 mls Q24HR GLENN Administration Insulin Human Isoph/Insulin Regular 10 units 07/04/20 21:00 07/09/20 08:56 Humulin 70/30 (300 Units/3 Ml Vial) SC 10 unit BID GLENN Administration Insulin Human Lispro 0 units 07/03/20 15:40 07/09/20 11:44 Humalog 300 Units/3 Ml Vial SC 3 unit .MILD SLIDING SCALE PRN Administration Mild Correctional Scale Levothyroxine Sodium 50 mcg 07/05/20 06:00 07/09/20 05:01 Levothyroxine Sodium 50 Mcg Tab PO 50 mcg 0600 GLENN Administration Magnesium Oxide 250 mg 07/05/20 09:00 07/09/20 09:00 Magnesium Oxide 250 Mg Tab PO 250 mg DAILY GLENN Administration Nystatin 1 gm 07/04/20 10:59 07/07/20 09:30 Nystatin Powder 15 Gm Bot TOP 1 gm BID PRN Administration Topical Irritations Ondansetron HCl 4 mg 07/03/20 15:27 07/05/20 02:02 Ondansetron Pf 4 Mg/2 Ml Vial IVP 4 mg Q6H PRN Administration Nausea/Vomiting Pantoprazole Sodium 40 mg 07/05/20 09:00 07/09/20 09:00 Pantoprazole 40 Mg Tab PO 40 mg DAILY GLENN Administration Polyethylene Glycol 17 gm 07/05/20 09:00 07/09/20 08:57 Polyethylene Glycol 3350 17 Gm Packet PO 17 gm DAILY GLENN Administration Sodium Chloride 10 ml 07/06/20 09:00 07/09/20 09:02 Flush - Normal Saline 10 Ml Syringe IVF 10 ml Q12HR GLENN Administration Zinc Sulfate 220 mg 07/04/20 21:00 07/09/20 09:01 Zinc Sulfate 220 Mg Cap PO 220 mg BID GLENN Administration - Exam General Appearance: awake alert, ill appearing Eye: PERRL, anicteric sclera ENT: normocephalic atraumatic, no oropharyngeal lesions Neck: supple, symmetric, no JVD, no thyromegaly, no lymphadenopathy Heart: RRR, no gallops, no rubs, normal peripheral pulses Heart - other findings: S1, S2 Respiratory - other findings: diminished in bases, few scattered rhonchi Gastrointestinal: soft, non-tender, non-distended, normal bowel sounds, no palpable masses Extremities: no cyanosis, no clubbing, 1+ LE edema Skin: normal turgor, no lesions Neurological: cranial nerve grossly intact, no new deficit Musculoskeletal: normal tone, generalized weakness Psychiatric: normal affect, A&O x 3 Hosp A/P (1) Pneumonia due to COVID-19 virus Code(s): U07.1 - COVID-19; J12.89 - OTHER VIRAL PNEUMONIA Status: Acute Plan: Continue Rocephin/Dexamethasone/Lovenox/O2 @ 5L/min NC (2) Acute respiratory failure with hypoxia Code(s): J96.01 - ACUTE RESPIRATORY FAILURE WITH HYPOXIA Status: Acute Plan: See #1 above (3) Acute kidney injury superimposed on CKD Code(s): N17.9 - ACUTE KIDNEY FAILURE, UNSPECIFIED; N18.9 - CHRONIC KIDNEY DISEASE, UNSPECIFIED Status: Acute (4) Acute on chronic systolic (congestive) heart failure Code(s): I50.23 - ACUTE ON CHRONIC SYSTOLIC (CONGESTIVE) HEART FAILURE Status: Acute (5) UTI (urinary tract infection) Status: Acute Qualifiers: Urinary tract infection type: acute cystitis Hematuria presence: without hematuria Qualified Code(s): N30.00 - Acute cystitis without hematuria Plan: VRE colonized (6) Physical deconditioning Code(s): R53.81 - OTHER MALAISE Status: Acute (7) Blindness - both eyes Code(s): H54.0 - BLINDNESS, BOTH EYES * DO NOT USE * Status: Chronic - Plan continue antibiotics, PT/OT, social science analyst, respiratory therapy, out of bed/ambulate, DVT proph w/SCDs Continue Dexamethasone/Rocephin/Lovenox O2 supplementation Continue Vit C 1000mg po daily Continue Zinc 220mg daily Continue Zithromax 250mg po daily Increase Decadron 10mg IV daily s/p convalescent plasma Consider for home O2 AM lab: H/H, platelets, Ferritin, CRP, D-dimer
[2020-07-09] MEDS: cefTRIAXone\\ROCEPHIN 2 GM in Sodium Chloride 0.9% 100 ML IVPB SCH (20:54)
[2020-07-09] MEDS: Atorvastatin Calcium 10 MG TAB PO SCH (20:55)
[2020-07-10] MEDS: Levothyroxine Sodium 50 MCG TAB PO SCH (04:55)
[2020-07-10] MEDS: HumaLOG 300 UNITS/3 ML VIAL SC PRN ×3 (05:11→17:18)
[2020-07-10] MEDS: HumuLIN 70/30 (300 UNITS/3 ML VIAL) SC SCH ×2 (08:28→20:00)
[2020-07-10] MEDS: Polyethylene Glycol 3350 17 GM Packet PO SCH (08:31)
[2020-07-10] MEDS: Enoxaparin Sodium 60 MG/0.6 ML SYRINGE SC SCH (08:32)
[2020-07-10] MEDS: Cholecalciferol 1,000 UNITS (25 MCG) TAB PO SCH (08:32)
[2020-07-10] MEDS: Dexamethasone 10 MG/ML VIAL SLOW IVP SCH (08:32)
[2020-07-10] MEDS: Aspirin 81 mg Enteric Coated Tablet PO SCH (08:32)
[2020-07-10] MEDS: Ascorbic Acid 500 mg Chewable Tablet PO SCH (08:32)
[2020-07-10] MEDS: Allopurinol 100 MG TAB PO SCH (08:32)
[2020-07-10] MEDS: Magnesium Oxide 250 MG TAB PO SCH (08:32)
[2020-07-10] MEDS: Zinc Sulfate 220 MG CAP PO SCH ×2 (08:32→20:01)
[2020-07-10] MEDS: Furosemide 40 MG TAB PO SCH (08:33)
[2020-07-10] MEDS: Carvedilol 6.25 MG TAB PO SCH ×2 (08:33→17:18)
[2020-07-10] MEDS: Clopidogrel Bisulfate 75 MG TAB PO SCH (09:33)
[2020-07-10 09:51] LABS: Hemoglobin 11.7 g/dL (12.0-16.0); Platelet Count 302 thou/uL (130-400)
--- NOTE | 2020-07-10 13:28 | PDOC.HOSPP ---
- Subjective Encounter Date: 07/10/20 Encounter Time: 13:25 Subjective: f/u for COVID PNA receiving Rocephin/Dexamethasone/Lovenox/O2 @ 5L/min NC. Nursing reports pt not participating in turning, moving and needs assistance even lifting her cup to her mouth. Remains weak and SOB. - Objective Vital Signs & Weight: Vital Signs (12 hours) Temp Pulse Resp BP Pulse Ox 07/10/20 12:00 74 20 129/65 92 L 07/10/20 08:00 98.1 F 79 22 H 151/72 H 91 L 07/10/20 03:22 98.1 F 76 22 H 145/69 H 90 L Weight Admit Weight 305 lb 9.6 oz Weight 311 lb 9.6 oz I&O: 07/09/20 07/10/20 07/11/20 06:59 06:59 06:59 Intake Total 720 1285 Output Total 1150 850 Balance -430 435 Result Diagrams: 07/10/20 09:20 07/10/20 09:20 Additional Labs: Accuchecks 07/10/20 07/10/20 07/09/20 10:23 05:04 21:02 POC Glucose 240 H 232 H 227 H 07/09/20 16:34 POC Glucose 206 H Microbiology 07/03/20 13:58 Urine Straight Catheter Urine Culture - Final Vanc-resistant Enterococcus 07/03/20 13:58 Urine Straight Catheter Urine Culture - Preliminary Non-Hemolytic Streptococcus 07/03/20 12:48 Venous blood - Right Arm Blood Culture - Preliminary Specimen has been received and culture in progres s. No Growth to date. 07/03/20 12:22 Venous blood - Right Hand Blood Culture - Preliminary Specimen has been received and culture in pro kelle. No Growth to date. Laboratory Tests 06/21/20 06/29/20 07/03/20 05:00 03:00 12:22 Hgb Plt Count Neutrophils % D-Dimer Creatinine 3.25 H Lactic Acid Ferritin Troponin I C-Reactive Protein B-Natriuretic Peptide 1241.2 H 3236.9 H TSH 3rd Generation 07/03/20 07/03/20 07/03/20 12:22 12:22 12:22 Hgb Plt Count Neutrophils % D-Dimer 1.07 H Creatinine Lactic Acid Ferritin Troponin I 0.261 H C-Reactive Protein B-Natriuretic Peptide 3745.5 H TSH 3rd Generation 07/03/20 07/03/20 07/03/20 12:22 12:22 12:22 Hgb 10.5 L Plt Count 109 L Neutrophils % 87.6 H D-Dimer Creatinine Lactic Acid 1.7 Ferritin Troponin I C-Reactive Protein B-Natriuretic Peptide TSH 3rd Generation 1.6026 07/03/20 07/03/20 07/04/20 16:14 18:10 05:34 Hgb Plt Count Neutrophils % 92.2 H D-Dimer Creatinine Lactic Acid Ferritin Troponin I 0.267 H 0.262 H C-Reactive Protein B-Natriuretic Peptide TSH 3rd Generation 07/06/20 07/06/20 07/06/20 04:49 04:49 04:49 Hgb Plt Count Neutrophils % D-Dimer 0.53 H Creatinine Lactic Acid Ferritin 1263.95 H Troponin I C-Reactive Protein 13.49 H B-Natriuretic Peptide TSH 3rd Generation EKG Reviewed by me: Yes (Tele - SR) Hospitalist ROS - Medication Medications: Active Medications Generic Name Dose Route Start Last Admin Trade Name Freq PRN Reason Stop Dose Admin Acetaminophen 650 mg 07/03/20 15:27 07/04/20 11:58 Acetaminophen 325 Mg Tab PO 650 mg Q4H PRN Administration Headache/Fever/Mild Pain (1-3) Allopurinol 200 mg 07/05/20 09:00 07/10/20 08:32 Allopurinol 100 Mg Tab PO 200 mg DAILY GLENN Administration Ascorbic Acid 1,000 mg 07/05/20 09:00 07/10/20 08:32 Ascorbic Acid 500 Mg Chewable Tablet PO 1,000 mg DAILY GLENN Administration Aspirin 81 mg 07/05/20 09:00 07/10/20 08:32 Aspirin 81 Mg Enteric Coated Tablet PO 81 mg DAILY GLENN Administration Atorvastatin Calcium 10 mg 07/04/20 21:00 07/09/20 20:55 Atorvastatin Calcium 10 Mg Tab PO 10 mg HS GLENN Administration Carvedilol 6.25 mg 07/04/20 17:00 07/10/20 08:33 Carvedilol 6.25 Mg Tab PO 6.25 mg BID-WM GLENN Administration Cholecalciferol 1,000 units 07/05/20 09:00 07/10/20 08:32 Cholecalciferol 1,000 Units (25 Mcg) Tab PO 1,000 units DAILY GLENN Administration Clopidogrel Bisulfate 75 mg 07/05/20 09:00 07/10/20 09:33 Clopidogrel Bisulfate 75 Mg Tab PO 75 mg DAILY GLENN Administration Dexamethasone 10 mg 07/09/20 09:00 07/10/20 08:32 Dexamethasone 10 Mg/Ml Vial SLOW IVP 10 mg DAILY GLENN Administration Enoxaparin Sodium 60 mg 07/07/20 09:00 07/10/20 08:32 Enoxaparin Sodium 60 Mg/0.6 Ml Syringe SC 60 mg DAILY GLENN Administration Furosemide 40 mg 07/05/20 09:00 07/10/20 08:33 Furosemide 40 Mg Tab PO 40 mg QAM GLENN Administration Ceftriaxone Sodium 2 gm/ 100 mls @ 200 mls/hr 07/04/20 20:30 07/09/20 20:54 Sodium Chloride IVPB 100 mls Q24HR GLENN Administration Insulin Human Isoph/Insulin Regular 10 units 07/04/20 21:00 07/10/20 08:28 Humulin 70/30 (300 Units/3 Ml Vial) SC 10 unit BID GLENN Administration Insulin Human Lispro 0 units 07/03/20 15:40 07/10/20 11:25 Humalog 300 Units/3 Ml Vial SC 3 unit .MILD SLIDING SCALE PRN Administration Mild Correctional Scale Levothyroxine Sodium 50 mcg 07/05/20 06:00 07/10/20 04:55 Levothyroxine Sodium 50 Mcg Tab PO 50 mcg 0600 GLENN Administration Magnesium Oxide 250 mg 07/05/20 09:00 07/10/20 08:32 Magnesium Oxide 250 Mg Tab PO 250 mg DAILY GLENN Administration Nystatin 1 gm 07/04/20 10:59 07/07/20 09:30 Nystatin Powder 15 Gm Bot TOP 1 gm BID PRN Administration Topical Irritations Ondansetron HCl 4 mg 07/03/20 15:27 07/05/20 02:02 Ondansetron Pf 4 Mg/2 Ml Vial IVP 4 mg Q6H PRN Administration Nausea/Vomiting Pantoprazole Sodium 40 mg 07/05/20 09:00 07/10/20 08:33 Pantoprazole 40 Mg Tab PO 40 mg DAILY GLENN Administration Polyethylene Glycol 17 gm 07/05/20 09:00 07/10/20 08:31 Polyethylene Glycol 3350 17 Gm Packet PO 17 gm DAILY GLENN Administration Sodium Chloride 10 ml 07/06/20 09:00 07/10/20 09:33 Flush - Normal Saline 10 Ml Syringe IVF 10 ml Q12HR GLENN Administration Zinc Sulfate 220 mg 07/04/20 21:00 07/10/20 08:32 Zinc Sulfate 220 Mg Cap PO 220 mg BID GLENN Administration - Exam General Appearance: NAD, awake alert Eye: PERRL, anicteric sclera ENT: normocephalic atraumatic, no oropharyngeal lesions Neck: supple, symmetric, no JVD, no thyromegaly, no lymphadenopathy Heart: RRR, no gallops, no rubs, normal peripheral pulses Heart - other findings: S1, S2 Respiratory: tachypneic Respiratory - other findings: diminished bilat, occ rhonchi Gastrointestinal: soft, non-tender, non-distended, normal bowel sounds, no palpable masses Gastrointestinal - other findings: obese Extremities: no cyanosis, no clubbing, no edema Skin: normal turgor Neurological: cranial nerve grossly intact, no new deficit Musculoskeletal: generalized weakness Psychiatric: A&O x 3, somnolent Hosp A/P (1) Pneumonia due to COVID-19 virus Code(s): U07.1 - COVID-19; J12.89 - OTHER VIRAL PNEUMONIA Status: Acute Plan: Continue Rocephin/Dexamethasone/Lovenox/O2 @ 5L/min NC/Vit C/Zinc (2) Acute respiratory failure with hypoxia Code(s): J96.01 - ACUTE RESPIRATORY FAILURE WITH HYPOXIA Status: Acute Plan: Continue O2, currently 5L/min NC, will need outpt O2 supplementation (3) Acute kidney injury superimposed on CKD Code(s): N17.9 - ACUTE KIDNEY FAILURE, UNSPECIFIED; N18.9 - CHRONIC KIDNEY DISEASE, UNSPECIFIED Status: Acute Plan: Improved, avoid nephrotoxic meds and limit contrast (4) Acute on chronic systolic (congestive) heart failure Code(s): I50.23 - ACUTE ON CHRONIC SYSTOLIC (CONGESTIVE) HEART FAILURE Status: Acute (5) UTI (urinary tract infection) Status: Acute Qualifiers: Urinary tract infection type: acute cystitis Hematuria presence: without hematuria Qualified Code(s): N30.00 - Acute cystitis without hematuria (6) Physical deconditioning Code(s): R53.81 - OTHER MALAISE Status: Acute (7) Blindness - both eyes Code(s): H54.0 - BLINDNESS, BOTH EYES * DO NOT USE * Status: Chronic - Plan continue antibiotics, PT/OT, marriage and family social worker, respiratory therapy, out of bed/ambulate, DVT proph w/SCDs Continue Dexamethasone/Rocephin/Lovenox O2 supplementation Continue Vit C 1000mg po daily Continue Zinc 220mg daily Increase Decadron 10mg IV daily s/p convalescent plasma Consider for home O2 Pt and family want pt to return home instead of rehab/SNF, apparently has multiple family members willing to assist and a contracted care provider AM lab: H/H, platelets, Ferritin, CRP, D-dimer
[2020-07-10] MEDS: cefTRIAXone\\ROCEPHIN 2 GM in Sodium Chloride 0.9% 100 ML IVPB SCH (20:00)
[2020-07-10] MEDS: Atorvastatin Calcium 10 MG TAB PO SCH (20:01)
[2020-07-11] MEDS: HumaLOG 300 UNITS/3 ML VIAL SC PRN ×3 (06:06→17:42)
[2020-07-11] MEDS: Levothyroxine Sodium 50 MCG TAB PO SCH (06:06)
[2020-07-11] MEDS: Enoxaparin Sodium 60 MG/0.6 ML SYRINGE SC SCH (07:36)
[2020-07-11] MEDS: Ascorbic Acid 500 mg Chewable Tablet PO SCH (07:37)
[2020-07-11] MEDS: Magnesium Oxide 250 MG TAB PO SCH (07:37)
[2020-07-11] MEDS: Dexamethasone 10 MG/ML VIAL SLOW IVP SCH (07:38)
[2020-07-11] MEDS: Zinc Sulfate 220 MG CAP PO SCH ×2 (07:38→20:41)
[2020-07-11] MEDS: Clopidogrel Bisulfate 75 MG TAB PO SCH (07:38)
[2020-07-11] MEDS: Aspirin 81 mg Enteric Coated Tablet PO SCH (07:38)
[2020-07-11] MEDS: Allopurinol 100 MG TAB PO SCH (07:39)
[2020-07-11] MEDS: Carvedilol 6.25 MG TAB PO SCH ×2 (07:39→16:48)
[2020-07-11] MEDS: Cholecalciferol 1,000 UNITS (25 MCG) TAB PO SCH (07:39)
[2020-07-11] MEDS: Furosemide 40 MG TAB PO SCH (07:39)
[2020-07-11] MEDS: HumuLIN 70/30 (300 UNITS/3 ML VIAL) SC SCH ×2 (07:40→20:41)
[2020-07-11] MEDS: Polyethylene Glycol 3350 17 GM Packet PO SCH (07:48)
--- NOTE | 2020-07-11 17:51 | PDOC.HOSPP ---
- Subjective Encounter Date: 07/11/20 Encounter Time: 10:00 Subjective: Patient was seen and examined in bed. She complained of increasing fatigability and intermittent shortness of breath. Denied any chest pain abdominal or extremity pain. - Objective Vital Signs & Weight: Vital Signs (12 hours) Temp Pulse Resp BP Pulse Ox 07/11/20 12:00 98.1 F 74 18 125/61 95 07/11/20 07:50 98.2 F 80 19 166/72 H 91 L 07/11/20 07:40 91 L Weight Admit Weight 305 lb 9.6 oz Weight 311 lb 9.6 oz I&O: 07/10/20 07/11/20 07/12/20 06:59 06:59 06:59 Intake Total 1285 1317 Output Total 850 1000 Balance 435 317 Result Diagrams: 07/10/20 09:20 07/10/20 09:20 Additional Labs: Accuchecks 07/11/20 07/11/20 07/11/20 17:34 11:52 05:46 POC Glucose 250 H 274 H 318 H 07/10/20 20:06 POC Glucose 247 H Hospitalist ROS - Medication Medications: Active Medications Generic Name Dose Route Start Last Admin Trade Name Freq PRN Reason Stop Dose Admin Acetaminophen 650 mg 07/03/20 15:27 07/04/20 11:58 Acetaminophen 325 Mg Tab PO 650 mg Q4H PRN Administration Headache/Fever/Mild Pain (1-3) Allopurinol 200 mg 07/05/20 09:00 07/11/20 07:39 Allopurinol 100 Mg Tab PO 200 mg DAILY GLENN Administration Ascorbic Acid 1,000 mg 07/05/20 09:00 07/11/20 07:37 Ascorbic Acid 500 Mg Chewable Tablet PO 1,000 mg DAILY GLENN Administration Aspirin 81 mg 07/05/20 09:00 07/11/20 07:38 Aspirin 81 Mg Enteric Coated Tablet PO 81 mg DAILY GLENN Administration Atorvastatin Calcium 10 mg 07/04/20 21:00 07/10/20 20:01 Atorvastatin Calcium 10 Mg Tab PO 10 mg HS GLENN Administration Carvedilol 6.25 mg 07/04/20 17:00 07/11/20 16:48 Carvedilol 6.25 Mg Tab PO 6.25 mg BID-WM GLENN Administration Cholecalciferol 1,000 units 07/05/20 09:00 07/11/20 07:39 Cholecalciferol 1,000 Units (25 Mcg) Tab PO 1,000 units DAILY GLENN Administration Clopidogrel Bisulfate 75 mg 07/05/20 09:00 07/11/20 07:38 Clopidogrel Bisulfate 75 Mg Tab PO 75 mg DAILY GLENN Administration Dexamethasone 10 mg 07/09/20 09:00 07/11/20 07:38 Dexamethasone 10 Mg/Ml Vial SLOW IVP 10 mg DAILY GLENN Administration Enoxaparin Sodium 60 mg 07/07/20 09:00 07/11/20 07:36 Enoxaparin Sodium 60 Mg/0.6 Ml Syringe SC 60 mg DAILY GLENN Administration Furosemide 40 mg 07/05/20 09:00 07/11/20 07:39 Furosemide 40 Mg Tab PO 40 mg QAM GLENN Administration Ceftriaxone Sodium 2 gm/ 100 mls @ 200 mls/hr 07/04/20 20:30 07/10/20 20:00 Sodium Chloride IVPB 100 mls Q24HR GLENN Administration Insulin Human Isoph/Insulin Regular 10 units 07/04/20 21:00 07/11/20 07:40 Humulin 70/30 (300 Units/3 Ml Vial) SC 10 unit BID GLENN Administration Insulin Human Lispro 0 units 07/03/20 15:40 07/11/20 12:51 Humalog 300 Units/3 Ml Vial SC 4 unit .MILD SLIDING SCALE PRN Administration Mild Correctional Scale Levothyroxine Sodium 50 mcg 07/05/20 06:00 07/11/20 06:06 Levothyroxine Sodium 50 Mcg Tab PO 50 mcg 0600 GLENN Administration Magnesium Oxide 250 mg 07/05/20 09:00 07/11/20 07:37 Magnesium Oxide 250 Mg Tab PO 250 mg DAILY GLENN Administration Nystatin 1 gm 07/04/20 10:59 07/07/20 09:30 Nystatin Powder 15 Gm Bot TOP 1 gm BID PRN Administration Topical Irritations Ondansetron HCl 4 mg 07/03/20 15:27 07/05/20 02:02 Ondansetron Pf 4 Mg/2 Ml Vial IVP 4 mg Q6H PRN Administration Nausea/Vomiting Pantoprazole Sodium 40 mg 07/05/20 09:00 07/11/20 07:38 Pantoprazole 40 Mg Tab PO 40 mg DAILY GLENN Administration Sodium Chloride 10 ml 07/06/20 09:00 07/11/20 07:37 Flush - Normal Saline 10 Ml Syringe IVF 10 ml Q12HR GLENN Administration Zinc Sulfate 220 mg 07/04/20 21:00 07/11/20 07:38 Zinc Sulfate 220 Mg Cap PO 220 mg BID GLENN Administration - Exam General Appearance: ill appearing General - other findings: Obese, Heart - other findings: S1-S2 present. No murmurs gallops or rubs. Respiratory - other findings: Coarse breath sounds bilaterally. Reduced air entry bilaterally Extremities: no cyanosis, no clubbing Neurological - other findings: Blind, no other focal deficit Psychiatric: normal behavior, A&O x 3 Hosp A/P - Plan This is a 69-year-old female patient, blind on admission on account of pneumonia due to Covid. Covid was diagnosed on 07/02/2020 She still requiring oxygen at 5 L and on Lovenox and dexamethasone. Pneumonia due to Covid Continue supplemental oxygen Continue on Decadron daily 7add initially 8 mg and now on 10 mg. Continue anticoagulation Acute hypoxic respiratory failure Continue treatment as above. Urinary tract infection On ceftriaxonecontinue Physical deconditioning PT on improvement. Blindness CKD Creatinine has been stable No recent check BMP tomorrow. Heart failure with reduced EF EF 20 to 25% Currently appears stable We will monitor
[2020-07-11] MEDS: cefTRIAXone\\ROCEPHIN 2 GM in Sodium Chloride 0.9% 100 ML IVPB SCH (20:38)
[2020-07-11] MEDS: Atorvastatin Calcium 10 MG TAB PO SCH (20:41)
[2020-07-11 23:01] LABS: #Lymphocytes 0.3 thou/uL (1.20-3.40); #Monocytes 0.2 thou/uL (0.11-0.59); #Neutrophils 5.2 thou/uL (1.40-6.50); %Eosinophils 0.1 % (0.0-10.0); %Lymphocytes 5.4 % (21.0-51.0); %Monocytes 2.8 % (0.0-10.0); %Neutrophils 91.7 % (42.0-75.0); Hemoglobin 11.3 g/dL (12.0-16.0); Mean Corpuscular HGB CONC 30.9 g/dL (32.0-36.0); Mean Corpuscular Hemoglobin 26.3 pg (27.0-31.0); Mean Platelet Volume 9.1 fL (7.4-10.4); Platelet Count 272 thou/uL (130-400); RBC Distribution Width 17.5 % (11.5-14.5); Red Blood Cell (RBC) Count 4.29 mill/uL (4.20-5.40); White Blood Cell (WBC) Count 5.6 thou/uL (4.8-10.8)
[2020-07-11 23:22] LABS: Anion Gap 17 mmol/L (10-20); BUN (Urea Nitrogen) 88 mg/dL (9.8-20.1); Calc. Creatinine Clearance 31 mL/min (70-130); Calcium 8.9 mg/dL (7.8-10.44); Carbon Dioxide 21 mmol/L (23-31); Chloride 105 mmol/L (98-107); Glucose 261 mg/dL (80-115); Magnesium 1.9 mg/dL (1.6-2.6); Potassium 4.8 mmol/L (3.5-5.1); Sodium 138 mmol/L (136-145)
[2020-07-12] MEDS ORDERED: Magnesium Oxide 400 MG TAB PO SCH (00:15)
[2020-07-12] MEDS: Levothyroxine Sodium 50 MCG TAB PO SCH (04:54)
[2020-07-12] MEDS: Insulin Glargine 20 UNITS in Pre-Filled Syringe 1 EACH SC SCH (10:22)
[2020-07-12] MEDS: Dexamethasone 10 MG/ML VIAL SLOW IVP SCH (10:22)
[2020-07-12] MEDS: Magnesium Oxide 250 MG TAB PO SCH (10:23)
[2020-07-12] MEDS: Furosemide 40 MG TAB PO SCH (10:23)
[2020-07-12] MEDS: Ascorbic Acid 500 mg Chewable Tablet PO SCH (10:23)
[2020-07-12] MEDS: Allopurinol 100 MG TAB PO SCH (10:23)
[2020-07-12] MEDS: Aspirin 81 mg Enteric Coated Tablet PO SCH (10:23)
[2020-07-12] MEDS: Clopidogrel Bisulfate 75 MG TAB PO SCH (10:23)
[2020-07-12] MEDS: Zinc Sulfate 220 MG CAP PO SCH ×2 (10:24→21:13)
[2020-07-12] MEDS: Carvedilol 6.25 MG TAB PO SCH ×2 (10:24→17:00)
[2020-07-12] MEDS: Enoxaparin Sodium 60 MG/0.6 ML SYRINGE SC SCH (10:24)
[2020-07-12] MEDS: HumuLIN 70/30 (300 UNITS/3 ML VIAL) SC SCH ×2 (10:25→21:14)
[2020-07-12] MEDS: Cholecalciferol 1,000 UNITS (25 MCG) TAB PO SCH (10:31)
[2020-07-12] MEDS: HumaLOG 300 UNITS/3 ML VIAL SC PRN ×3 (13:31→21:39)
[2020-07-12 14:51] LABS: Bacteria/HPF 4+ HPF (None Seen); Bilirubin Negative (Negative); Blood, Urine 3+ (Negative); Clarity Clear (Clear); Glucose, Urine (Dipstick) 50 mg/dL (Negative); Ketone, Urine Negative (Negative); Leukocyte 75 Leu/uL (Negative); Nitrite Negative (Negative); Protein, Urine (Dipstick) 50 mg/dL (Neg-Trace); RBC/HPF 21-50 HPF (0-3); Specific Gravity, Urine 1.016 (1.002-1.036); Squamous Epithelial 0-3 HPF (0-3); Urobilinogen Normal mg/dL (Less than 2); Yeast-Budding 2+ HPF (None Seen); pH, Urine 5.5 (5.0-9.0)
[2020-07-12 14:52] LABS: Urine Culture Reflex Yes Yes
--- NOTE | 2020-07-12 16:44 | PDOC.HOSPP ---
- Subjective Encounter Date: 07/12/20 Encounter Time: 11:00 Subjective: Patient was seen and examined in bed. She generally remained stable on 5 L overnight. She has no new complaints. Has ongoing shortness of breath. No significant events overnight - Objective Vital Signs & Weight: Vital Signs (12 hours) Temp Pulse Resp BP Pulse Ox 07/12/20 11:03 98.1 F 82 26 H 144/66 H 96 07/12/20 10:25 96 07/12/20 08:40 81 22 H 132/63 92 L 07/12/20 05:48 99 07/12/20 04:55 98.0 F 79 18 136/62 100 Weight Admit Weight 305 lb 9.6 oz Weight 195 lb 3.2 oz I&O: 07/11/20 07/12/20 07/13/20 06:59 06:59 06:59 Intake Total 1317 980 Output Total 1000 1850 Balance 317 -870 Result Diagrams: 07/11/20 22:54 07/11/20 22:54 Additional Labs: Accuchecks 07/12/20 07/12/20 07/12/20 11:27 05:21 04:58 POC Glucose 278 H 238 H 239 H 07/11/20 07/11/20 20:53 17:34 POC Glucose 260 H 250 H EKG Reviewed by me: Yes (residential monitor. 2 runs of V. tach, normal sinus rhythm overnight) Hospitalist ROS - Medication Medications: Active Medications Generic Name Dose Route Start Last Admin Trade Name Freq PRN Reason Stop Dose Admin Acetaminophen 650 mg 07/03/20 15:27 07/04/20 11:58 Acetaminophen 325 Mg Tab PO 650 mg Q4H PRN Administration Headache/Fever/Mild Pain (1-3) Allopurinol 200 mg 07/05/20 09:00 07/12/20 10:23 Allopurinol 100 Mg Tab PO 200 mg DAILY GLENN Administration Ascorbic Acid 1,000 mg 07/05/20 09:00 07/12/20 10:23 Ascorbic Acid 500 Mg Chewable Tablet PO 1,000 mg DAILY GLENN Administration Aspirin 81 mg 07/05/20 09:00 07/12/20 10:23 Aspirin 81 Mg Enteric Coated Tablet PO 81 mg DAILY GLENN Administration Atorvastatin Calcium 10 mg 07/04/20 21:00 07/11/20 20:41 Atorvastatin Calcium 10 Mg Tab PO 10 mg HS GLENN Administration Carvedilol 6.25 mg 07/04/20 17:00 07/12/20 10:24 Carvedilol 6.25 Mg Tab PO 6.25 mg BID-WM GLENN Administration Cholecalciferol 1,000 units 07/05/20 09:00 07/12/20 10:31 Cholecalciferol 1,000 Units (25 Mcg) Tab PO 1,000 units DAILY GLENN Administration Clopidogrel Bisulfate 75 mg 07/05/20 09:00 07/12/20 10:23 Clopidogrel Bisulfate 75 Mg Tab PO 75 mg DAILY GLENN Administration Dexamethasone 10 mg 07/09/20 09:00 07/12/20 10:22 Dexamethasone 10 Mg/Ml Vial SLOW IVP 10 mg DAILY GLENN Administration Enoxaparin Sodium 60 mg 07/07/20 09:00 07/12/20 10:24 Enoxaparin Sodium 60 Mg/0.6 Ml Syringe SC 60 mg DAILY GLENN Administration Furosemide 40 mg 07/05/20 09:00 07/12/20 10:23 Furosemide 40 Mg Tab PO 40 mg QAM GLENN Administration Insulin Glargine 20 units/ 0.2 mls @ 0 mls/hr 07/12/20 09:00 07/12/20 10:22 Miscellaneous Medication SC 0.2 mls QAM GLENN Administration Insulin Human Isoph/Insulin Regular 10 units 07/04/20 21:00 07/12/20 10:25 Humulin 70/30 (300 Units/3 Ml Vial) SC 10 unit BID GLENN Administration Insulin Human Lispro 0 units 07/03/20 15:40 07/12/20 13:31 Humalog 300 Units/3 Ml Vial SC 4 unit .MILD SLIDING SCALE PRN Administration Mild Correctional Scale Levothyroxine Sodium 50 mcg 07/05/20 06:00 07/12/20 04:54 Levothyroxine Sodium 50 Mcg Tab PO 50 mcg 0600 GLENN Administration Magnesium Oxide 250 mg 07/05/20 09:00 07/12/20 10:23 Magnesium Oxide 250 Mg Tab PO 250 mg DAILY GLENN Administration Nystatin 1 gm 07/04/20 10:59 07/07/20 09:30 Nystatin Powder 15 Gm Bot TOP 1 gm BID PRN Administration Topical Irritations Ondansetron HCl 4 mg 07/03/20 15:27 07/05/20 02:02 Ondansetron Pf 4 Mg/2 Ml Vial IVP 4 mg Q6H PRN Administration Nausea/Vomiting Pantoprazole Sodium 40 mg 07/05/20 09:00 07/12/20 10:23 Pantoprazole 40 Mg Tab PO 40 mg DAILY GLENN Administration Sodium Chloride 10 ml 07/06/20 09:00 07/12/20 10:24 Flush - Normal Saline 10 Ml Syringe IVF 10 ml Q12HR GLENN Administration Zinc Sulfate 220 mg 07/04/20 21:00 07/12/20 10:24 Zinc Sulfate 220 Mg Cap PO 220 mg BID GLENN Administration - Exam General Appearance: awake alert General - other findings: Obese Heart: RRR, no murmur, no gallops, normal peripheral pulses Respiratory - other findings: Reduced air entry bilaterally. No wheezes heard. On 5 L nasal cannula Gastrointestinal: soft, non-tender, non-distended, normal bowel sounds, no palpable masses Extremities: no cyanosis, no clubbing, 1+ LE edema Hosp A/P - Plan This is a 69-year-old female patient, blind on admission on account of pneumonia due to Covid. Covid was diagnosed on 07/02/2020 She still requiring oxygen at 5 L and on Lovenox and dexamethasone. Pneumonia due to Covid Continue supplemental oxygen Continue on Decadron daily 7add initially 8 mg and now on 10 mg. Continue anticoagulation Acute hypoxic respiratory failure Continue treatment as above. Urinary tract infection On ceftriaxoneurine culture however showed VRE We will repeat urinalysis to look for clearance Consult ID on decision on continued antibiotic therapy. DC ceftriaxone for now Physical deconditioning PT on board Blindness CKD Creatinine has been stable No recent check BMP tomorrow. Heart failure with reduced EF EF 20 to 25% Currently appears stable We will monitor DVT prophylaxisLovenox CODE STATUSfull code
--- NOTE | 2020-07-12 19:22 | CON ---
DATE OF CONSULTATION: 07/12/2020 REASON FOR CONSULTATION: COVID infection. HISTORY OF PRESENT ILLNESS: A 69-year-old with history of type 2 diabetes, hypertension, some form of cardiomyopathy and necrotizing infection, right thigh with Streptococcus anginosus. She was treated in 2013 for this process and after that, she was admitted in May with a worsening dyspnea and impairment in renal function. The initial complaints were lower extremity swelling and dyspnea. Echocardiogram showed EF of 20% to 25% and left bundle branch block pattern. Diuresis had to be careful because of CKD stage 4 and she was discharged to inpatient rehab with potential placement of AICD in the future. At this time, she was admitted on July 03 because of worsening hypoxemia and dyspnea. This developed on June 30. She tested COVID positive on the day of admission and was requiring up to 5 L nasal cannula O2 setting and 90% to 91%, so she was treated with Decadron. She was felt not to be eligible for remdesivir because of renal function. So, she has been here since, she is today is the ninth day after admission. She is currently awake. She is legally blind. Denies any headaches. She was able to eat some today. The dyspnea is improving. She is still on nasal cannula O2 of 5 L. No chest pain. Some cough, but not much. No abdominal pain. She is voiding in the diaper. She is incontinent. No constipation or diarrhea. PAST MEDICAL HISTORY: Type 2 diabetes and cardiomyopathy, EF 25%, probably ischemic. Hypertension, gout, CKD stage 4, prior episode of necrotizing fasciitis right thigh due to strep anginosus, and blindness. SOCIAL HISTORY: Lives close by in a house. She has caretakers. Never smoker. ALLERGIES: NONE. CURRENT MEDICATIONS: 1. Allopurinol. 2. Vitamin C. 3. Aspirin. 4. Lipitor. 5. Dulcolax. 6. Coreg. 7. Plavix. 8. Decadron. 9. Insulin. 10. Levothyroxine. 11. Ondansetron. 12. Zinc sulfate. PHYSICAL EXAMINATION: VITAL SIGNS: She has been afebrile for the past many days, actually since the admission has not had a fever. She is saturation anywhere from 99 to 100 with 5 L. If one looks at the oximetries, there seems to be improving off late still on 5 L and breathing anywhere from 20 to 26 times a minute. GENERAL: She does not appear in distress right now, speaking in full sentences. SKIN: With some areas of stage 2 pressure ulceration, small and quite shallow in the presacral region. She has a peripheral IV access and is voiding in the diaper. HEENT: Dysconjugate eye movements. She has no light perception in the right side and she has light perception on the left, but cannot count fingers. Oral cavity is not remarkable. NECK: Supple. LUNGS: With basilar crackles. No wheezing. HEART: S1 and S2. Regular rate. No S3 or S4. ABDOMEN: Soft, not distended or tender. No ascites. No bladder distention. EXTREMITIES: She is able to move extremities, but is diffusely weak. NEUROLOGIC: She is awake and oriented, does not appear in distress. Knows her name. She knew where she was. She has some issues with recollection. Speech is normal. LABORATORY DATA: Latest labs; creatinine 2.46, GFR 20, calcium 8.9, and sodium 138. WBC 5.6, hemoglobin 11.3, and platelets 272. The ferritin was 1500 on the 15, now is 1214 two days ago. The C-reactive protein started 16 is down to 4.5, so a quite significant drop in CRP levels. The D-dimer is also down to 0.49. IMAGING STUDIES: We had a chest x-ray on admission, which showed diffuse bilateral infiltrates. ASSESSMENT AND PLAN: Diabetes type 2, cardiomyopathy, and [id number] COVID pneumonia on nasal cannula O2 since admission of 5 L. There is some trend in improvement of the O2 saturations. Inflammatory markers are also improving. She appears comfortable at rest and this is the 12th day of illness, it is reaching the end of the second week and hopefully, she will continue to improve, but she is still in a frail condition and we know that those patients sometimes will quickly decompensate and end up intubated, so let us hope that does not happen. She is not eligible for remdesivir due to low GFR. Repeat chest x-ray in a.m. Continue monitoring markers. Job ID: [id number]
[2020-07-12] MEDS: Atorvastatin Calcium 10 MG TAB PO SCH (21:13)
[2020-07-13] MEDS: Levothyroxine Sodium 50 MCG TAB PO SCH (05:16)
[2020-07-13] MEDS: HumaLOG 300 UNITS/3 ML VIAL SC PRN ×3 (06:37→21:48)
[2020-07-13] MEDS: Insulin Glargine 20 UNITS in Pre-Filled Syringe 1 EACH SC SCH (10:07)
[2020-07-13] MEDS: Carvedilol 6.25 MG TAB PO SCH ×2 (10:08→17:04)
[2020-07-13] MEDS: Clopidogrel Bisulfate 75 MG TAB PO SCH (10:09)
[2020-07-13] MEDS: Furosemide 40 MG TAB PO SCH (10:09)
[2020-07-13] MEDS: Aspirin 81 mg Enteric Coated Tablet PO SCH (10:09)
[2020-07-13] MEDS: Ascorbic Acid 500 mg Chewable Tablet PO SCH (10:09)
[2020-07-13] MEDS: Allopurinol 100 MG TAB PO SCH (10:09)
[2020-07-13] MEDS: Zinc Sulfate 220 MG CAP PO SCH ×2 (10:09→21:47)
[2020-07-13] MEDS: Enoxaparin Sodium 60 MG/0.6 ML SYRINGE SC SCH (10:10)
[2020-07-13] MEDS: Dexamethasone 10 MG/ML VIAL SLOW IVP SCH (10:10)
[2020-07-13] MEDS: Cholecalciferol 1,000 UNITS (25 MCG) TAB PO SCH (10:10)
[2020-07-13] MEDS: Magnesium Oxide 250 MG TAB PO SCH (10:10)
[2020-07-13 12:53] LABS: #Eosinphils 0.1 thou/uL (0.0-0.7); #Lymphocytes 0.2 thou/uL (1.20-3.40); #Monocytes 0.2 thou/uL (0.11-0.59); %Basophils 0.1 % (0.0-1.0); %Eosinophils 0.7 % (0.0-10.0); %Lymphocytes 2.2 % (21.0-51.0); %Monocytes 2.4 % (0.0-10.0); %Neutrophils 94.7 % (42.0-75.0); Hemoglobin 11.2 g/dL (12.0-16.0); Mean Corpuscular HGB CONC 31.3 g/dL (32.0-36.0); Mean Corpuscular Volume 86.1 fL (78.0-98.0); Mean Platelet Volume 9.4 fL (7.4-10.4); Platelet Count 236 thou/uL (130-400); RBC Distribution Width 18.5 % (11.5-14.5); Red Blood Cell (RBC) Count 4.16 mill/uL (4.20-5.40); White Blood Cell (WBC) Count 8.4 thou/uL (4.8-10.8)
[2020-07-13 13:04] LABS: Anion Gap 13 mmol/L (10-20); BUN (Urea Nitrogen) 95 mg/dL (9.8-20.1); Calc. Creatinine Clearance 37 mL/min (70-130); Calcium 8.8 mg/dL (7.8-10.44); Carbon Dioxide 27 mmol/L (23-31); Chloride 105 mmol/L (98-107); Glucose 263 mg/dL (80-115); Potassium 4.5 mmol/L (3.5-5.1); Sodium 140 mmol/L (136-145)
--- NOTE | 2020-07-13 16:15 | PDOC.HOSPP ---
- Subjective Encounter Date: 07/13/20 Encounter Time: 10:00 Subjective: Patient was seen and examined in bed. She denied any chest pain worsening shortness of breath or cough. She has however remained weak. No significant events overnight - Objective Vital Signs & Weight: Vital Signs (12 hours) Temp Pulse Resp BP Pulse Ox Pulse Ox Pulse Ox 07/13/20 14:37 88 L 90 L 07/13/20 11:26 97.7 F 78 18 152/67 H 92 L 07/13/20 08:32 78 18 139/64 93 L Pulse Ox 07/13/20 14:37 89 L 07/13/20 11:26 07/13/20 08:32 Weight Admit Weight 305 lb 9.6 oz Weight 195 lb 3.2 oz I&O: 07/12/20 07/13/20 07/14/20 06:59 06:59 06:59 Intake Total 980 657 Output Total 8522 1075 Balance -870 -418 Result Diagrams: 07/15/20 10:59 07/15/20 10:59 Additional Labs: Accuchecks 07/13/20 07/13/20 07/12/20 11:26 05:18 21:26 POC Glucose 230 H 238 H 268 H 07/12/20 17:07 POC Glucose 256 H EKG Reviewed by me: Yes (3 runs of V. tach overnight.) Hospitalist ROS - Medication Medications: Active Medications Generic Name Dose Route Start Last Admin Trade Name Freq PRN Reason Stop Dose Admin Acetaminophen 650 mg 07/03/20 15:27 07/04/20 11:58 Acetaminophen 325 Mg Tab PO 650 mg Q4H PRN Administration Headache/Fever/Mild Pain (1-3) Allopurinol 200 mg 07/05/20 09:00 07/13/20 10:09 Allopurinol 100 Mg Tab PO 200 mg DAILY GLENN Administration Ascorbic Acid 1,000 mg 07/05/20 09:00 07/13/20 10:09 Ascorbic Acid 500 Mg Chewable Tablet PO 1,000 mg DAILY GLENN Administration Aspirin 81 mg 07/05/20 09:00 07/13/20 10:09 Aspirin 81 Mg Enteric Coated Tablet PO 81 mg DAILY GLENN Administration Atorvastatin Calcium 10 mg 07/04/20 21:00 07/12/20 21:13 Atorvastatin Calcium 10 Mg Tab PO 10 mg HS GLENN Administration Carvedilol 6.25 mg 07/04/20 17:00 07/13/20 10:08 Carvedilol 6.25 Mg Tab PO 6.25 mg BID-WM GLENN Administration Cholecalciferol 1,000 units 07/05/20 09:00 07/13/20 10:10 Cholecalciferol 1,000 Units (25 Mcg) Tab PO 1,000 units DAILY GLENN Administration Clopidogrel Bisulfate 75 mg 07/05/20 09:00 07/13/20 10:09 Clopidogrel Bisulfate 75 Mg Tab PO 75 mg DAILY GLENN Administration Dexamethasone 10 mg 07/09/20 09:00 07/13/20 10:10 Dexamethasone 10 Mg/Ml Vial SLOW IVP 10 mg DAILY GLENN Administration Enoxaparin Sodium 60 mg 07/07/20 09:00 07/13/20 10:10 Enoxaparin Sodium 60 Mg/0.6 Ml Syringe SC 60 mg DAILY GLENN Administration Furosemide 40 mg 07/05/20 09:00 07/13/20 10:09 Furosemide 40 Mg Tab PO 40 mg QAM GLENN Administration Insulin Glargine 20 units/ 0.2 mls @ 0 mls/hr 07/12/20 09:00 07/13/20 10:07 Miscellaneous Medication SC 0.2 mls QAM GLENN Administration Insulin Human Lispro 0 units 07/03/20 15:40 07/13/20 12:29 Humalog 300 Units/3 Ml Vial SC 3 unit .MILD SLIDING SCALE PRN Administration Mild Correctional Scale Insulin Human Lispro 0 units 07/05/20 01:18 07/12/20 21:39 Humalog 300 Units/3 Ml Vial SC 3 unit .BEDTIME SLIDING SC PRN Administration Bedtime Correctional Scale Levothyroxine Sodium 50 mcg 07/05/20 06:00 07/13/20 05:16 Levothyroxine Sodium 50 Mcg Tab PO 50 mcg 0600 GLENN Administration Magnesium Oxide 250 mg 07/05/20 09:00 07/13/20 10:10 Magnesium Oxide 250 Mg Tab PO 250 mg DAILY GLENN Administration Nystatin 1 gm 07/04/20 10:59 07/07/20 09:30 Nystatin Powder 15 Gm Bot TOP 1 gm BID PRN Administration Topical Irritations Ondansetron HCl 4 mg 07/03/20 15:27 07/05/20 02:02 Ondansetron Pf 4 Mg/2 Ml Vial IVP 4 mg Q6H PRN Administration Nausea/Vomiting Pantoprazole Sodium 40 mg 07/05/20 09:00 07/13/20 10:09 Pantoprazole 40 Mg Tab PO 40 mg DAILY GLENN Administration Sodium Chloride 10 ml 07/06/20 09:00 07/13/20 10:11 Flush - Normal Saline 10 Ml Syringe IVF 10 ml Q12HR GLENN Administration Zinc Sulfate 220 mg 07/04/20 21:00 07/13/20 10:09 Zinc Sulfate 220 Mg Cap PO 220 mg BID GLENN Administration - Exam General Appearance: awake alert General - other findings: Obese Heart: RRR, no murmur, no gallops, no rubs, normal peripheral pulses Respiratory - other findings: Reduced air entry bilaterally Gastrointestinal: soft, non-tender, non-distended, normal bowel sounds Extremities: no cyanosis, no clubbing, 1+ LE edema Neurological: no weakness Neurological - other findings: Blind Psychiatric: normal affect, A&O x 3 Hosp A/P - Plan This is a 69-year-old female patient, on admission on account of pneumonia due to Covid. Covid was diagnosed on 07/02/2020 She still requiring oxygen at 5 L and on Lovenox and dexamethasone. Pneumonia due to Covid Continue supplemental oxygentry to wean down from 5 L. Continue on Decadron daily 7add initially 8 mg and now on 10 mg. Possible discontinue tomorrow. Continue anticoagulation Appreciate ID input Acute hypoxic respiratory failure Continue treatment as above. Urinary tract infection Was on ceftriaxone Urine culture repeat was relatively sterile Hold antibiotics for now. ID on board Physical deconditioning PT on board Blindness CKD Creatinine has been stable No recent check BMP tomorrow. Heart failure with reduced EF EF 20 to 25% Currently appears stable We will monitor DVT prophylaxisLovenox CODE STATUSfull code
[2020-07-13] MEDS: Atorvastatin Calcium 10 MG TAB PO SCH (21:47)
[2020-07-14] MEDS: HumaLOG 300 UNITS/3 ML VIAL SC PRN ×4 (05:55→22:15)
[2020-07-14] MEDS: Levothyroxine Sodium 50 MCG TAB PO SCH (05:55)
[2020-07-14] MEDS ORDERED: Insulin Glargine 25 UNITS in Pre-Filled Syringe 1 EACH SC SCH (06:45)
[2020-07-14 07:23] LABS: Anion Gap 18 mmol/L (10-20); BUN (Urea Nitrogen) 87 mg/dL (9.8-20.1); Calc. Creatinine Clearance 38 mL/min (70-130); Carbon Dioxide 22 mmol/L (23-31); Chloride 106 mmol/L (98-107); Glucose 242 mg/dL (80-115); Potassium 4.8 mmol/L (3.5-5.1); Sodium 141 mmol/L (136-145)
--- NOTE | 2020-07-14 09:24 | RAD ---
PORTABLE CHEST: Date: 07/14/2020 INDICATION: COVID pneumonia. COMPARISON: 07/03/2020. FINDINGS: Cardiomegaly with vascular congestion. There are bilateral patchy infiltrates, similar to 07/03/2020. Evidence of small effusions. IMPRESSION: Persistent bilateral infiltrates. POS: AGW
[2020-07-14] MEDS: Dexamethasone 10 MG/ML VIAL SLOW IVP SCH (09:33)
[2020-07-14] MEDS: Enoxaparin Sodium 60 MG/0.6 ML SYRINGE SC SCH (09:33)
[2020-07-14] MEDS: Ascorbic Acid 500 mg Chewable Tablet PO SCH (09:33)
[2020-07-14] MEDS: Cholecalciferol 1,000 UNITS (25 MCG) TAB PO SCH (09:33)
[2020-07-14] MEDS: Zinc Sulfate 220 MG CAP PO SCH ×2 (09:33→22:16)
[2020-07-14] MEDS: Carvedilol 6.25 MG TAB PO SCH ×2 (09:34→18:22)
[2020-07-14] MEDS: Allopurinol 100 MG TAB PO SCH (09:34)
[2020-07-14] MEDS: Aspirin 81 mg Enteric Coated Tablet PO SCH (09:34)
[2020-07-14] MEDS: Clopidogrel Bisulfate 75 MG TAB PO SCH (09:34)
[2020-07-14] MEDS: Furosemide 40 MG TAB PO SCH (09:34)
[2020-07-14] MEDS: Magnesium Oxide 250 MG TAB PO SCH (09:40)
[2020-07-14] MEDS: Bisacodyl 5 MG TAB PO PRN (09:45)
[2020-07-14] MEDS: Nystatin Powder 15 GM BOT TOP PRN (10:30)
--- NOTE | 2020-07-14 15:36 | PDOC.HOSPP ---
- Subjective Encounter Date: 07/14/20 Subjective: Patient was seen and examined in bed. She was lying comfortably no distress. She denied any chest pain, worsening shortness of breath No significant events overnight - Objective Vital Signs & Weight: Vital Signs (12 hours) Temp Pulse Resp BP BP BP Pulse Ox 07/14/20 12:55 98.5 F 92 15 145/58 H 94 L 07/14/20 09:30 94 L 07/14/20 08:48 128/59 L 131/60 07/14/20 08:46 94 L 07/14/20 08:00 98 F 83 22 H 122/69 07/14/20 07:47 93 L 07/14/20 04:00 98.3 F 80 16 124/68 93 L Pulse Ox Pulse Ox Pulse Ox 07/14/20 12:55 07/14/20 09:30 07/14/20 08:48 80 L 90 L 95 07/14/20 08:46 07/14/20 08:00 07/14/20 07:47 07/14/20 04:00 Weight Admit Weight 305 lb 9.6 oz Weight 195 lb 3.2 oz I&O: 07/13/20 07/14/20 07/15/20 06:59 06:59 06:59 Intake Total 657 1160 Output Total 1075 1175 Balance -418 -15 Result Diagrams: 07/15/20 10:59 07/15/20 10:59 Additional Labs: Accuchecks 07/14/20 07/14/20 07/13/20 10:47 05:33 20:12 POC Glucose 247 H 232 H 246 H 07/13/20 17:34 POC Glucose 281 H Hospitalist ROS - Medication Medications: Active Medications Generic Name Dose Route Start Last Admin Trade Name Freq PRN Reason Stop Dose Admin Acetaminophen 650 mg 07/03/20 15:27 07/04/20 11:58 Acetaminophen 325 Mg Tab PO 650 mg Q4H PRN Administration Headache/Fever/Mild Pain (1-3) Allopurinol 200 mg 07/05/20 09:00 07/14/20 09:34 Allopurinol 100 Mg Tab PO 200 mg DAILY GLENN Administration Ascorbic Acid 1,000 mg 07/05/20 09:00 07/14/20 09:33 Ascorbic Acid 500 Mg Chewable Tablet PO 1,000 mg DAILY GLENN Administration Aspirin 81 mg 07/05/20 09:00 07/14/20 09:34 Aspirin 81 Mg Enteric Coated Tablet PO 81 mg DAILY GLENN Administration Atorvastatin Calcium 10 mg 07/04/20 21:00 07/13/20 21:47 Atorvastatin Calcium 10 Mg Tab PO 10 mg HS GLENN Administration Bisacodyl 5 mg 07/04/20 10:58 07/14/20 09:45 Bisacodyl 5 Mg Tab PO 5 mg DAILY PRN Administration Constipation Carvedilol 6.25 mg 07/04/20 17:00 07/14/20 09:34 Carvedilol 6.25 Mg Tab PO 6.25 mg BID-WM GLENN Administration Cholecalciferol 1,000 units 07/05/20 09:00 07/14/20 09:33 Cholecalciferol 1,000 Units (25 Mcg) Tab PO 1,000 units DAILY GLENN Administration Clopidogrel Bisulfate 75 mg 07/05/20 09:00 07/14/20 09:34 Clopidogrel Bisulfate 75 Mg Tab PO 75 mg DAILY GLENN Administration Dexamethasone 10 mg 07/09/20 09:00 07/14/20 09:33 Dexamethasone 10 Mg/Ml Vial SLOW IVP 10 mg DAILY GLENN Administration Enoxaparin Sodium 60 mg 07/07/20 09:00 07/14/20 09:33 Enoxaparin Sodium 60 Mg/0.6 Ml Syringe SC 60 mg DAILY GLENN Administration Furosemide 40 mg 07/05/20 09:00 07/14/20 09:34 Furosemide 40 Mg Tab PO 40 mg QAM GLENN Administration Insulin Human Lispro 0 units 07/03/20 15:40 07/14/20 12:42 Humalog 300 Units/3 Ml Vial SC 3 unit .MILD SLIDING SCALE PRN Administration Mild Correctional Scale Insulin Human Lispro 0 units 07/05/20 01:18 07/13/20 21:48 Humalog 300 Units/3 Ml Vial SC 2 unit .BEDTIME SLIDING SC PRN Administration Bedtime Correctional Scale Levothyroxine Sodium 50 mcg 07/05/20 06:00 07/14/20 05:55 Levothyroxine Sodium 50 Mcg Tab PO 50 mcg 0600 GLENN Administration Magnesium Oxide 250 mg 07/05/20 09:00 07/14/20 09:40 Magnesium Oxide 250 Mg Tab PO 250 mg DAILY GLENN Administration Nystatin 1 gm 07/04/20 10:59 07/07/20 09:30 Nystatin Powder 15 Gm Bot TOP 1 gm BID PRN Administration Topical Irritations Ondansetron HCl 4 mg 07/03/20 15:27 07/05/20 02:02 Ondansetron Pf 4 Mg/2 Ml Vial IVP 4 mg Q6H PRN Administration Nausea/Vomiting Pantoprazole Sodium 40 mg 07/05/20 09:00 07/14/20 09:34 Pantoprazole 40 Mg Tab PO 40 mg DAILY GLENN Administration Sodium Chloride 10 ml 07/06/20 09:00 07/14/20 09:33 Flush - Normal Saline 10 Ml Syringe IVF 10 ml Q12HR GLENN Administration Zinc Sulfate 220 mg 07/04/20 21:00 07/14/20 09:33 Zinc Sulfate 220 Mg Cap PO 220 mg BID GLENN Administration - Exam General Appearance: awake alert Heart: RRR, no murmur, no gallops Respiratory - other findings: Reduced air entry bilaterally. Gastrointestinal: soft, non-tender, non-distended, normal bowel sounds Extremities: no cyanosis, no clubbing, 1+ LE edema Neurological: cranial nerve grossly intact (Besides blindness.) Psychiatric: normal affect, A&O x 3 Hosp A/P - Plan This is a 69-year-old female patient on admission on account of pneumonia due to Covid. Covid was diagnosed on 07/02/2020 She still requiring oxygen at 5 L and on Lovenox and dexamethasone. Will discontinue dexamethasone. She is past 10 days. Pneumonia due to Covid Continue supplemental oxygentry to wean down from 5 L however unable to tolerate lower. Continue on Decadron daily 7add initially 8 mg and now on 10 mg. Possible discontinue tomorrow. Continue anticoagulation Appreciate ID input Acute hypoxic respiratory failure Continue treatment as above. Urinary tract infection Was on ceftriaxone however discontinued Last urinalysis plan ID on board Physical deconditioning PT on board Was unable to get out of bed today. Continue trying physical therapy Blindness CKD Creatinine has been stable Renal function stable. BMP tomorrow. Nephrology consult if deteriorates Heart failure with reduced EF EF 20 to 25% Currently appears stable We will monitor DVT prophylaxisLovenox CODE STATUSfull code
[2020-07-14] MEDS: Atorvastatin Calcium 10 MG TAB PO SCH (22:16)
[2020-07-15] MEDS: Levothyroxine Sodium 50 MCG TAB PO SCH (06:22)
[2020-07-15] MEDS: HumaLOG 300 UNITS/3 ML VIAL SC PRN ×4 (06:22→21:23)
[2020-07-15] MEDS ORDERED: Insulin Glargine 25 UNITS in Pre-Filled Syringe 1 EACH SC SCH (09:00)
[2020-07-15] MEDS: Insulin Glargine 30 UNITS in Pre-Filled Syringe 1 EACH SC SCH (09:59)
[2020-07-15] MEDS: Enoxaparin Sodium 60 MG/0.6 ML SYRINGE SC SCH (09:59)
[2020-07-15] MEDS: Carvedilol 6.25 MG TAB PO SCH (10:00)
[2020-07-15] MEDS: Magnesium Oxide 250 MG TAB PO SCH (10:00)
[2020-07-15] MEDS: Zinc Sulfate 220 MG CAP PO SCH ×2 (10:00→21:23)
[2020-07-15] MEDS: Cholecalciferol 1,000 UNITS (25 MCG) TAB PO SCH (10:00)
[2020-07-15] MEDS: Ascorbic Acid 500 mg Chewable Tablet PO SCH (10:00)
[2020-07-15] MEDS: Aspirin 81 mg Enteric Coated Tablet PO SCH (10:00)
[2020-07-15] MEDS: Bisacodyl 5 MG TAB PO PRN (10:01)
[2020-07-15] MEDS: Clopidogrel Bisulfate 75 MG TAB PO SCH (10:01)
[2020-07-15] MEDS: Allopurinol 100 MG TAB PO SCH (10:01)
[2020-07-15] MEDS: Furosemide 40 MG TAB PO SCH (10:01)
[2020-07-15] MEDS: Dexamethasone 10 MG/ML VIAL SLOW IVP SCH (10:02)
[2020-07-15] MEDS: Nystatin Powder 15 GM BOT TOP PRN (10:45)
[2020-07-15 11:44] LABS: Anion Gap 17 mmol/L (10-20); BUN (Urea Nitrogen) 90 mg/dL (9.8-20.1); Calc. Creatinine Clearance 36 mL/min (70-130); Carbon Dioxide 21 mmol/L (23-31); Chloride 107 mmol/L (98-107); Glucose 279 mg/dL (80-115); Potassium 4.9 mmol/L (3.5-5.1); Sodium 140 mmol/L (136-145)
[2020-07-15 11:54] LABS: #Lymphocytes 0.2 thou/uL (1.20-3.40); #Monocytes 0.4 thou/uL (0.11-0.59); #Neutrophils 7.5 thou/uL (1.40-6.50); %Eosinophils 0.2 % (0.0-10.0); %Lymphocytes 2.8 % (21.0-51.0); %Monocytes 4.6 % (0.0-10.0); %Neutrophils 92.4 % (42.0-75.0); Hemoglobin 11.8 g/dL (12.0-16.0); Hypochromia SLIGHT = 6-15 cells (100X) (0-5/hpf); MDiff Complete? YES; Mean Corpuscular HGB CONC 29.4 g/dL (32.0-36.0); Mean Corpuscular Hemoglobin 25.8 pg (27.0-31.0); Mean Corpuscular Volume 87.7 fL (78.0-98.0); Mean Platelet Volume 10.2 fL (7.4-10.4); Ovalocytes SLIGHT = 2-5 cells (100X) (0-1/hpf); Platelet Count 186 thou/uL (130-400); Platelet Morphology Comment Appears Adequate; Polychromasia SLIGHT = 2-3 cells (100X) (0-2/hpf); RBC Distribution Width 18.8 % (11.5-14.5); Red Blood Cell (RBC) Count 4.56 mill/uL (4.20-5.40); White Blood Cell (WBC) Count 8.1 thou/uL (4.8-10.8)
--- NOTE | 2020-07-15 14:51 | PDOC.HOSPP ---
- Subjective Encounter Date: 07/15/20 Encounter Time: 14:49 Subjective: Patient was seen and examined in bed. She had a generally good night. She denies any worsening shortness of breath or chest pain. No significant events overnight. - Objective Vital Signs & Weight: Vital Signs (12 hours) Temp Pulse Resp BP Pulse Ox 07/15/20 11:00 97.6 F 81 22 H 111/53 L 94 L 07/15/20 08:31 97.9 F 84 23 H 156/72 H 93 L 07/15/20 07:56 95 07/15/20 03:15 97.9 F 78 16 147/74 H 95 Weight Admit Weight 305 lb 9.6 oz Weight 195 lb 3.2 oz I&O: 07/14/20 07/15/20 07/16/20 06:59 06:59 06:59 Intake Total 1160 1020 Output Total 1175 1200 Balance -15 -180 Result Diagrams: 07/15/20 10:59 07/15/20 10:59 Additional Labs: Accuchecks 07/15/20 07/15/20 07/14/20 10:48 05:44 21:10 POC Glucose 261 H 268 H 270 H 07/14/20 17:04 POC Glucose 242 H Hospitalist ROS - Medication Medications: Active Medications Generic Name Dose Route Start Last Admin Trade Name Freq PRN Reason Stop Dose Admin Acetaminophen 650 mg 07/03/20 15:27 07/04/20 11:58 Acetaminophen 325 Mg Tab PO 650 mg Q4H PRN Administration Headache/Fever/Mild Pain (1-3) Allopurinol 200 mg 07/05/20 09:00 07/15/20 10:01 Allopurinol 100 Mg Tab PO 200 mg DAILY GLENN Administration Ascorbic Acid 1,000 mg 07/05/20 09:00 07/15/20 10:00 Ascorbic Acid 500 Mg Chewable Tablet PO 1,000 mg DAILY GLENN Administration Aspirin 81 mg 07/05/20 09:00 07/15/20 10:00 Aspirin 81 Mg Enteric Coated Tablet PO 81 mg DAILY GLENN Administration Atorvastatin Calcium 10 mg 07/04/20 21:00 07/14/20 22:16 Atorvastatin Calcium 10 Mg Tab PO 10 mg HS GLENN Administration Bisacodyl 5 mg 07/04/20 10:58 07/15/20 10:01 Bisacodyl 5 Mg Tab PO 5 mg DAILY PRN Administration Constipation Carvedilol 6.25 mg 07/04/20 17:00 07/15/20 10:00 Carvedilol 6.25 Mg Tab PO 6.25 mg BID-WM GLENN Administration Cholecalciferol 1,000 units 07/05/20 09:00 07/15/20 10:00 Cholecalciferol 1,000 Units (25 Mcg) Tab PO 1,000 units DAILY GLENN Administration Clopidogrel Bisulfate 75 mg 07/05/20 09:00 07/15/20 10:01 Clopidogrel Bisulfate 75 Mg Tab PO 75 mg DAILY GLENN Administration Dexamethasone 10 mg 07/09/20 09:00 07/15/20 10:02 Dexamethasone 10 Mg/Ml Vial SLOW IVP 10 mg DAILY GLENN Administration Enoxaparin Sodium 60 mg 07/07/20 09:00 07/15/20 09:59 Enoxaparin Sodium 60 Mg/0.6 Ml Syringe SC 60 mg DAILY GLENN Administration Furosemide 40 mg 07/05/20 09:00 07/15/20 10:01 Furosemide 40 Mg Tab PO 40 mg QAM GLENN Administration Insulin Glargine 30 units/ 0.3 mls @ 0 mls/hr 07/15/20 09:00 07/15/20 09:59 Miscellaneous Medication SC 0.3 mls QAM GLENN Administration As Directed Insulin Human Lispro 0 units 07/03/20 15:40 07/15/20 11:04 Humalog 300 Units/3 Ml Vial SC 4 unit .MILD SLIDING SCALE PRN Administration Mild Correctional Scale Insulin Human Lispro 0 units 07/05/20 01:18 07/14/20 22:15 Humalog 300 Units/3 Ml Vial SC 3 unit .BEDTIME SLIDING SC PRN Administration Bedtime Correctional Scale Levothyroxine Sodium 50 mcg 07/05/20 06:00 07/15/20 06:22 Levothyroxine Sodium 50 Mcg Tab PO 50 mcg 0600 GLENN Administration Magnesium Oxide 250 mg 07/05/20 09:00 07/15/20 10:00 Magnesium Oxide 250 Mg Tab PO 250 mg DAILY GLENN Administration Nystatin 1 gm 07/04/20 10:59 07/14/20 10:30 Nystatin Powder 15 Gm Bot TOP 1 gm BID PRN Administration Topical Irritations Ondansetron HCl 4 mg 07/03/20 15:27 07/05/20 02:02 Ondansetron Pf 4 Mg/2 Ml Vial IVP 4 mg Q6H PRN Administration Nausea/Vomiting Pantoprazole Sodium 40 mg 07/05/20 09:00 07/15/20 10:02 Pantoprazole 40 Mg Tab PO 40 mg DAILY GLENN Administration Sodium Chloride 10 ml 07/06/20 09:00 07/15/20 10:03 Flush - Normal Saline 10 Ml Syringe IVF 10 ml Q12HR GLENN Administration Zinc Sulfate 220 mg 07/04/20 21:00 07/15/20 10:00 Zinc Sulfate 220 Mg Cap PO 220 mg BID GLENN Administration - Exam General Appearance: awake alert General - other findings: Blind Heart: RRR, no murmur, no gallops, normal peripheral pulses Respiratory - other findings: Reduced air entry bilaterally. No wheezes Extremities: no cyanosis, no clubbing, 1+ LE edema Neurological: cranial nerve grossly intact, no weakness Psychiatric: normal affect, A&O x 3 Hosp A/P - Plan This is a 69-year-old female blind patient on admission on account of pneumonia due to Covid. Covid was diagnosed on 07/02/2020 She is currently weaned down from 5 to 4.5 L oxygenremained stable. We will continue weaning down oxygen and monitoring. Pneumonia due to Covid Continue supplemental oxygentry to wean down from 5 L however unable to tolerate lower. Completed over 10 days of Decadron We will discontinue today Acute hypoxic respiratory failure Continue treatment as above. Urinary tract infection Was on ceftriaxone however discontinued We will continue observing. No indication for antibiotics now ID on board Physical deconditioning PT on board Was unable to get out of bed today. Continue trying physical therapy Blindness CKD Creatinine has been stable Renal function stable. BMP tomorrow. Nephrology consult if deteriorates Heart failure with reduced EF EF 20 to 25% Currently appears stable We will monitor DVT prophylaxisLovenox CODE STATUSfull code
[2020-07-15] MEDS: Atorvastatin Calcium 10 MG TAB PO SCH (21:23)
[2020-07-16 05:15] LABS: #Lymphocytes 0.3 thou/uL (1.20-3.40); #Monocytes 0.3 thou/uL (0.11-0.59); #Neutrophils 5.9 thou/uL (1.40-6.50); %Basophils 0.1 % (0.0-1.0); %Eosinophils 0.3 % (0.0-10.0); %Lymphocytes 4.2 % (21.0-51.0); %Monocytes 4.9 % (0.0-10.0); %Neutrophils 90.5 % (42.0-75.0); Hemoglobin 11.4 g/dL (12.0-16.0); Mean Corpuscular HGB CONC 30.4 g/dL (32.0-36.0); Mean Corpuscular Hemoglobin 26.3 pg (27.0-31.0); Mean Corpuscular Volume 86.6 fL (78.0-98.0); Mean Platelet Volume 10.5 fL (7.4-10.4); Platelet Count 185 thou/uL (130-400); RBC Distribution Width 18.9 % (11.5-14.5); Red Blood Cell (RBC) Count 4.31 mill/uL (4.20-5.40); White Blood Cell (WBC) Count 6.5 thou/uL (4.8-10.8)
[2020-07-16 06:07] LABS: Anion Gap 14 mmol/L (10-20); BUN (Urea Nitrogen) 94 mg/dL (9.8-20.1); Calc. Creatinine Clearance 38 mL/min (70-130); Calcium 9.1 mg/dL (7.8-10.44); Carbon Dioxide 25 mmol/L (23-31); Chloride 106 mmol/L (98-107); Glucose 245 mg/dL (80-115); Potassium 4.9 mmol/L (3.5-5.1); Sodium 140 mmol/L (136-145)
[2020-07-16] MEDS: Levothyroxine Sodium 50 MCG TAB PO SCH (06:27)
[2020-07-16] MEDS: Bisacodyl 5 MG TAB PO PRN (06:27)
[2020-07-16] MEDS: HumaLOG 300 UNITS/3 ML VIAL SC PRN ×2 (06:27→12:13)
[2020-07-16 10:03] LABS: Hemoglobin 11.7 g/dL (12.0-16.0); Platelet Count 165 thou/uL (130-400)
[2020-07-16] MEDS: Insulin Glargine 30 UNITS in Pre-Filled Syringe 1 EACH SC SCH (10:43)
[2020-07-16] MEDS: Aspirin 81 mg Enteric Coated Tablet PO SCH (10:44)
[2020-07-16] MEDS: Ascorbic Acid 500 mg Chewable Tablet PO SCH (10:44)
[2020-07-16] MEDS: Magnesium Oxide 250 MG TAB PO SCH (10:44)
[2020-07-16] MEDS: Enoxaparin Sodium 60 MG/0.6 ML SYRINGE SC SCH (10:44)
[2020-07-16] MEDS: Cholecalciferol 1,000 UNITS (25 MCG) TAB PO SCH (10:44)
[2020-07-16] MEDS: Allopurinol 100 MG TAB PO SCH (10:45)
[2020-07-16] MEDS: Zinc Sulfate 220 MG CAP PO SCH ×2 (10:45→20:07)
[2020-07-16] MEDS: Clopidogrel Bisulfate 75 MG TAB PO SCH (10:45)
[2020-07-16] MEDS: Furosemide 40 MG TAB PO SCH (10:45)
--- NOTE | 2020-07-16 11:45 | PDOC.HOSPP ---
- Subjective Encounter Date: 07/16/20 Encounter Time: 11:00 Subjective: no sob, didn't eat her breakfast but says she drank nutrition drink no sob, is on nasal canula has not ambulated, moves her legs - Objective Vital Signs & Weight: Vital Signs (12 hours) Temp Pulse Resp BP Pulse Ox 07/16/20 11:25 97.9 F 79 17 112/53 L 96 07/16/20 08:11 98 F 78 20 148/77 H 95 07/16/20 03:19 97.8 F 77 20 155/74 H 92 L Weight Admit Weight 305 lb 9.6 oz Weight 195 lb 3.2 oz I&O: 07/15/20 07/16/20 07/17/20 06:59 06:59 06:59 Intake Total 1020 840 Output Total 1200 610 Balance -180 230 Result Diagrams: 07/16/20 09:40 07/16/20 09:40 Additional Labs: Accuchecks 07/16/20 07/16/20 07/15/20 10:27 05:42 21:07 POC Glucose 196 H 233 H 297 H 07/15/20 16:34 POC Glucose 285 H Hospitalist ROS - Medication Medications: Active Medications Generic Name Dose Route Start Last Admin Trade Name Freq PRN Reason Stop Dose Admin Acetaminophen 650 mg 07/03/20 15:27 07/04/20 11:58 Acetaminophen 325 Mg Tab PO 650 mg Q4H PRN Administration Headache/Fever/Mild Pain (1-3) Allopurinol 200 mg 07/05/20 09:00 07/16/20 10:45 Allopurinol 100 Mg Tab PO 200 mg DAILY GLENN Administration Ascorbic Acid 1,000 mg 07/05/20 09:00 07/16/20 10:44 Ascorbic Acid 500 Mg Chewable Tablet PO 1,000 mg DAILY GLENN Administration Aspirin 81 mg 07/05/20 09:00 07/16/20 10:44 Aspirin 81 Mg Enteric Coated Tablet PO 81 mg DAILY GLENN Administration Atorvastatin Calcium 10 mg 07/04/20 21:00 07/15/20 21:23 Atorvastatin Calcium 10 Mg Tab PO 10 mg HS GLENN Administration Bisacodyl 5 mg 07/04/20 10:58 07/16/20 06:27 Bisacodyl 5 Mg Tab PO 5 mg DAILY PRN Administration Constipation Cholecalciferol 1,000 units 07/05/20 09:00 07/16/20 10:44 Cholecalciferol 1,000 Units (25 Mcg) Tab PO 1,000 units DAILY GLENN Administration Clopidogrel Bisulfate 75 mg 07/05/20 09:00 07/16/20 10:45 Clopidogrel Bisulfate 75 Mg Tab PO 75 mg DAILY GLENN Administration Enoxaparin Sodium 60 mg 07/07/20 09:00 07/16/20 10:44 Enoxaparin Sodium 60 Mg/0.6 Ml Syringe SC 60 mg DAILY GLENN Administration Furosemide 40 mg 07/05/20 09:00 07/16/20 10:45 Furosemide 40 Mg Tab PO 40 mg QAM GLENN Administration Insulin Glargine 30 units/ 0.3 mls @ 0 mls/hr 07/15/20 09:00 07/16/20 10:43 Miscellaneous Medication SC 0.3 mls QAM GLENN Administration As Directed Insulin Human Lispro 0 units 07/03/20 15:40 07/16/20 06:27 Humalog 300 Units/3 Ml Vial SC 3 unit .MILD SLIDING SCALE PRN Administration Mild Correctional Scale Insulin Human Lispro 0 units 07/05/20 01:18 07/15/20 21:23 Humalog 300 Units/3 Ml Vial SC 3 unit .BEDTIME SLIDING SC PRN Administration Bedtime Correctional Scale Levothyroxine Sodium 50 mcg 07/05/20 06:00 07/16/20 06:27 Levothyroxine Sodium 50 Mcg Tab PO 50 mcg 0600 GLENN Administration Magnesium Oxide 250 mg 07/05/20 09:00 07/16/20 10:44 Magnesium Oxide 250 Mg Tab PO 250 mg DAILY GLENN Administration Nystatin 1 gm 07/04/20 10:59 07/15/20 10:45 Nystatin Powder 15 Gm Bot TOP 1 gm BID PRN Administration Topical Irritations Ondansetron HCl 4 mg 07/03/20 15:27 07/05/20 02:02 Ondansetron Pf 4 Mg/2 Ml Vial IVP 4 mg Q6H PRN Administration Nausea/Vomiting Pantoprazole Sodium 40 mg 07/05/20 09:00 07/16/20 10:45 Pantoprazole 40 Mg Tab PO 40 mg DAILY GLENN Administration Sodium Chloride 10 ml 07/06/20 09:00 07/16/20 10:45 Flush - Normal Saline 10 Ml Syringe IVF 10 ml Q12HR GLENN Administration Zinc Sulfate 220 mg 07/04/20 21:00 07/16/20 10:45 Zinc Sulfate 220 Mg Cap PO 220 mg BID GLENN Administration - Exam General Appearance: awake alert Eye: PERRL, anicteric sclera ENT: no oropharyngeal lesions, moist mucosa Neck: supple, no JVD Heart: RRR, no murmur Respiratory: no wheezes, no rales, rhonchi Gastrointestinal: soft, non-tender, non-distended, normal bowel sounds Extremities: no cyanosis, no edema Neurological: cranial nerve grossly intact, no focal deficits Psychiatric: A&O x 3 Hosp A/P (1) Pneumonia due to COVID-19 virus Code(s): U07.1 - COVID-19; J12.89 - OTHER VIRAL PNEUMONIA Status: Acute (2) Acute respiratory failure with hypoxia Code(s): J96.01 - ACUTE RESPIRATORY FAILURE WITH HYPOXIA Status: Acute (3) Acute kidney injury superimposed on CKD Code(s): N17.9 - ACUTE KIDNEY FAILURE, UNSPECIFIED; N18.9 - CHRONIC KIDNEY DISEASE, UNSPECIFIED Status: Acute (4) Hypertensive heart and renal disease with (congestive) heart failure Code(s): I13.0 - HYP HRT & CHR KDNY DIS W HRT FAIL AND STG 1-4/UNSP CHR KDNY; I50.9 - HEART FAILURE, UNSPECIFIED; N18.9 - CHRONIC KIDNEY DISEASE, UNSPECIFIED Status: Acute (5) Physical deconditioning Code(s): R53.81 - OTHER MALAISE Status: Acute (6) Blindness - both eyes Code(s): H54.0 - BLINDNESS, BOTH EYES * DO NOT USE * Status: Chronic (7) Chronic kidney disease, stage 4 (severe) Code(s): N18.4 - CHRONIC KIDNEY DISEASE, STAGE 4 (SEVERE) Status: Chronic (8) Diabetes mellitus type 2 Code(s): E11.9 - TYPE 2 DIABETES MELLITUS WITHOUT COMPLICATIONS Status: kaur (9) HTN (hypertension) Code(s): I10 - ESSENTIAL (PRIMARY) HYPERTENSION Status: Chronic Qualifiers: Hypertension type: essential hypertension Qualified Code(s): I10 - Essential (primary) hypertension (10) Obesity (BMI 30.0-34.9) Code(s): E66.9 - OBESITY, UNSPECIFIED Status: Chronic - Plan is comfortable on nasal canula, finished full course of dexamethasone, was not a candidate for remdesivir due to ckd PT to mobilize as tolerated, may need placement continue asp, lipitor, plavix, lovenox full dose, lantus, synthroid renal function is holding up prognosis guarded ef of 20% on prior echo
[2020-07-16] MEDS: Atorvastatin Calcium 10 MG TAB PO SCH (20:07)
[2020-07-17] MEDS: Levothyroxine Sodium 50 MCG TAB PO SCH (05:33)
[2020-07-17] MEDS: Zinc Sulfate 220 MG CAP PO SCH ×2 (09:28→21:11)
[2020-07-17] MEDS: Clopidogrel Bisulfate 75 MG TAB PO SCH (09:28)
[2020-07-17] MEDS: Cholecalciferol 1,000 UNITS (25 MCG) TAB PO SCH (09:28)
[2020-07-17] MEDS: Allopurinol 100 MG TAB PO SCH (09:28)
[2020-07-17] MEDS: Aspirin 81 mg Enteric Coated Tablet PO SCH (09:28)
[2020-07-17] MEDS: Furosemide 40 MG TAB PO SCH (09:28)
[2020-07-17] MEDS: Enoxaparin Sodium 60 MG/0.6 ML SYRINGE SC SCH (09:28)
[2020-07-17] MEDS: Ascorbic Acid 500 mg Chewable Tablet PO SCH (09:28)
[2020-07-17] MEDS: Insulin Glargine 30 UNITS in Pre-Filled Syringe 1 EACH SC SCH (09:29)
[2020-07-17] MEDS: Nystatin Powder 15 GM BOT TOP PRN (09:30)
[2020-07-17] MEDS: Magnesium Oxide 250 MG TAB PO SCH (09:34)
--- NOTE | 2020-07-17 10:56 | RAD ---
PORTABLE CHEST 1 VIEW: DATE: 07/17/2020. TIME: 10:41 AM. HISTORY: COVID-19 pneumonia. COMPARISON: 07/14/2020. FINDINGS: The heart size is enlarged. Bilateral patchy infiltrates are again seen with probable small effusion s. No pneumothoraces are identified. IMPRESSION: Stable exam. POS: OLGA
--- NOTE | 2020-07-17 14:47 | PDOC.HOSPP ---
- Subjective Encounter Date: 07/17/20 - Objective Vital Signs & Weight: Vital Signs (12 hours) Temp Pulse Pulse Resp BP BP BP 07/17/20 12:00 98.4 F 89 26 H 139/63 07/17/20 11:15 92 139/63 120/57 L 07/17/20 10:00 96.4 F L 81 21 H 120/57 L Pulse Ox Pulse Ox 07/17/20 12:00 92 L 07/17/20 11:15 90 L 07/17/20 10:00 94 L Weight Admit Weight 305 lb 9.6 oz Weight 300 lb 4.8 oz I&O: 07/16/20 07/17/20 07/18/20 06:59 06:59 06:59 Intake Total 840 917 Output Total 610 875 Balance 230 42 Result Diagrams: 07/16/20 09:40 07/16/20 09:40 Additional Labs: Accuchecks 07/17/20 07/17/20 07/16/20 11:49 05:37 20:13 POC Glucose 148 H 93 180 H 07/16/20 16:25 POC Glucose 168 H Hospitalist ROS - Medication Medications: Active Medications Generic Name Dose Route Start Last Admin Trade Name Freq PRN Reason Stop Dose Admin Acetaminophen 650 mg 07/03/20 15:27 07/04/20 11:58 Acetaminophen 325 Mg Tab PO 650 mg Q4H PRN Administration Headache/Fever/Mild Pain (1-3) Allopurinol 200 mg 07/05/20 09:00 07/17/20 09:28 Allopurinol 100 Mg Tab PO 200 mg DAILY GLENN Administration Ascorbic Acid 1,000 mg 07/05/20 09:00 07/17/20 09:28 Ascorbic Acid 500 Mg Chewable Tablet PO 1,000 mg DAILY GLENN Administration Aspirin 81 mg 07/05/20 09:00 07/17/20 09:28 Aspirin 81 Mg Enteric Coated Tablet PO 81 mg DAILY GLENN Administration Atorvastatin Calcium 10 mg 07/04/20 21:00 07/16/20 20:07 Atorvastatin Calcium 10 Mg Tab PO 10 mg HS GLENN Administration Bisacodyl 5 mg 07/04/20 10:58 07/16/20 06:27 Bisacodyl 5 Mg Tab PO 5 mg DAILY PRN Administration Constipation Cholecalciferol 1,000 units 07/05/20 09:00 07/17/20 09:28 Cholecalciferol 1,000 Units (25 Mcg) Tab PO 1,000 units DAILY GLENN Administration Clopidogrel Bisulfate 75 mg 07/05/20 09:00 07/17/20 09:28 Clopidogrel Bisulfate 75 Mg Tab PO 75 mg DAILY GLENN Administration Enoxaparin Sodium 60 mg 07/07/20 09:00 07/17/20 09:28 Enoxaparin Sodium 60 Mg/0.6 Ml Syringe SC 60 mg DAILY GLENN Administration Furosemide 40 mg 07/05/20 09:00 07/17/20 09:28 Furosemide 40 Mg Tab PO 40 mg QAM GLENN Administration Insulin Glargine 30 units/ 0.3 mls @ 0 mls/hr 07/15/20 09:00 07/17/20 09:29 Miscellaneous Medication SC 0.3 mls QAM GLENN Administration As Directed Insulin Human Lispro 0 units 07/03/20 15:40 07/16/20 12:13 Humalog 300 Units/3 Ml Vial SC 2 unit .MILD SLIDING SCALE PRN Administration Mild Correctional Scale Insulin Human Lispro 0 units 07/05/20 01:18 07/15/20 21:23 Humalog 300 Units/3 Ml Vial SC 3 unit .BEDTIME SLIDING SC PRN Administration Bedtime Correctional Scale Levothyroxine Sodium 50 mcg 07/05/20 06:00 07/17/20 05:33 Levothyroxine Sodium 50 Mcg Tab PO 50 mcg 0600 GLENN Administration Magnesium Oxide 250 mg 07/05/20 09:00 07/17/20 09:34 Magnesium Oxide 250 Mg Tab PO 250 mg DAILY GLENN Administration Nystatin 1 gm 07/04/20 10:59 07/17/20 09:30 Nystatin Powder 15 Gm Bot TOP 1 gm BID PRN Administration Topical Irritations Ondansetron HCl 4 mg 07/03/20 15:27 07/05/20 02:02 Ondansetron Pf 4 Mg/2 Ml Vial IVP 4 mg Q6H PRN Administration Nausea/Vomiting Pantoprazole Sodium 40 mg 07/05/20 09:00 07/17/20 09:28 Pantoprazole 40 Mg Tab PO 40 mg DAILY GLENN Administration Sodium Chloride 10 ml 07/06/20 09:00 07/17/20 09:29 Flush - Normal Saline 10 Ml Syringe IVF 10 ml Q12HR GLENN Administration Zinc Sulfate 220 mg 07/04/20 21:00 07/17/20 09:28 Zinc Sulfate 220 Mg Cap PO 220 mg BID GLENN Administration - Exam General Appearance: awake alert ENT: normocephalic atraumatic Heart: RRR Respiratory: normal chest expansion, no tachypnea Gastrointestinal: soft Extremities: no cyanosis, no clubbing Hosp A/P - Plan 07/16: This is a 69-year-old female blind patient on admission on account of pneumonia due to Covid. Covid was diagnosed on 07/02/2020 She is currently weaned down from 5 to 4.5 L oxygenremained stable. We will continue weaning down oxygen and monitoring. Pneumonia due to Covid Continue supplemental oxygentry to wean down from 5 L however unable to tolerate lower. Completed over 10 days of Decadron We will discontinue today Acute hypoxic respiratory failure Continue treatment as above. Urinary tract infection Was on ceftriaxone however discontinued We will continue observing. No indication for antibiotics now ID on board Physical deconditioning PT on board Was unable to get out of bed today. Continue trying physical therapy Blindness CKD Creatinine has been stable Renal function stable. BMP tomorrow. Nephrology consult if deteriorates Heart failure with reduced EF EF 20 to 25% Currently appears stable We will monitor DVT prophylaxisLovenox CODE STATUSfull code 07/17: The patient's oxygenation is stable on 4 L of nasal cannula. Status post convalescent plasma and Decadron. Urine culture showing growth of VRE which is likely contamination as the patient does not have any signs of infection. Continue PT and OT. Pending placement.
[2020-07-17] MEDS: HumaLOG 300 UNITS/3 ML VIAL SC PRN (15:55)
[2020-07-17] MEDS: Atorvastatin Calcium 10 MG TAB PO SCH (21:11)
[2020-07-18] MEDS: Levothyroxine Sodium 50 MCG TAB PO SCH (06:10)
[2020-07-18] MEDS: Ascorbic Acid 500 mg Chewable Tablet PO SCH (09:16)
[2020-07-18] MEDS: Enoxaparin Sodium 60 MG/0.6 ML SYRINGE SC SCH ×2 (09:17→09:18)
[2020-07-18] MEDS: Zinc Sulfate 220 MG CAP PO SCH ×2 (09:17→20:32)
[2020-07-18] MEDS: Aspirin 81 mg Enteric Coated Tablet PO SCH (09:17)
[2020-07-18] MEDS: Clopidogrel Bisulfate 75 MG TAB PO SCH (09:17)
[2020-07-18] MEDS: Allopurinol 100 MG TAB PO SCH (09:17)
[2020-07-18] MEDS: Furosemide 40 MG TAB PO SCH (09:17)
[2020-07-18] MEDS: Cholecalciferol 1,000 UNITS (25 MCG) TAB PO SCH (09:18)
[2020-07-18] MEDS: Insulin Glargine 30 UNITS in Pre-Filled Syringe 1 EACH SC SCH (09:18)
[2020-07-18] MEDS: Magnesium Oxide 250 MG TAB PO SCH (10:00)
[2020-07-18] MEDS: Acetaminophen 325 MG TAB PO PRN (11:50)
[2020-07-18] MEDS: HumaLOG 300 UNITS/3 ML VIAL SC PRN (11:52)
--- NOTE | 2020-07-18 12:38 | PDOC.HOSPP ---
- Subjective Encounter Date: 07/18/20 - Objective Vital Signs & Weight: Vital Signs (12 hours) Temp Pulse Resp BP Pulse Ox Pulse Ox Pulse Ox 07/18/20 11:30 99.2 F 87 20 147/60 H 99 07/18/20 09:59 100 96 07/18/20 09:20 98.1 F 83 16 145/65 H 98 07/18/20 03:30 98.5 F 75 20 137/60 95 07/18/20 01:23 97 Weight Admit Weight 305 lb 9.6 oz Weight 300 lb 4.8 oz I&O: 07/17/20 07/18/20 07/19/20 06:59 06:59 06:59 Intake Total 917 890 Output Total 875 550 Balance 42 340 Result Diagrams: 07/16/20 09:40 07/16/20 09:40 Additional Labs: Accuchecks 07/18/20 07/18/20 07/17/20 11:27 06:12 19:52 POC Glucose 170 H 183 H 204 H 07/17/20 15:33 POC Glucose 178 H Hospitalist ROS - Medication Medications: Active Medications Generic Name Dose Route Start Last Admin Trade Name Freq PRN Reason Stop Dose Admin Acetaminophen 650 mg 07/03/20 15:27 07/18/20 11:50 Acetaminophen 325 Mg Tab PO 650 mg Q4H PRN Administration Headache/Fever/Mild Pain (1-3) Allopurinol 200 mg 07/05/20 09:00 07/18/20 09:17 Allopurinol 100 Mg Tab PO 200 mg DAILY GLENN Administration Ascorbic Acid 1,000 mg 07/05/20 09:00 07/18/20 09:16 Ascorbic Acid 500 Mg Chewable Tablet PO 1,000 mg DAILY GLENN Administration Aspirin 81 mg 07/05/20 09:00 07/18/20 09:17 Aspirin 81 Mg Enteric Coated Tablet PO 81 mg DAILY GLENN Administration Atorvastatin Calcium 10 mg 07/04/20 21:00 07/17/20 21:11 Atorvastatin Calcium 10 Mg Tab PO 10 mg HS GLENN Administration Bisacodyl 5 mg 07/04/20 10:58 07/16/20 06:27 Bisacodyl 5 Mg Tab PO 5 mg DAILY PRN Administration Constipation Cholecalciferol 1,000 units 07/05/20 09:00 07/18/20 09:18 Cholecalciferol 1,000 Units (25 Mcg) Tab PO 1,000 units DAILY GLENN Administration Clopidogrel Bisulfate 75 mg 07/05/20 09:00 07/18/20 09:17 Clopidogrel Bisulfate 75 Mg Tab PO 75 mg DAILY GLENN Administration Enoxaparin Sodium 60 mg 07/07/20 09:00 07/18/20 09:18 Enoxaparin Sodium 60 Mg/0.6 Ml Syringe SC 60 mg DAILY GLENN Administration Furosemide 40 mg 07/05/20 09:00 07/18/20 09:17 Furosemide 40 Mg Tab PO 40 mg QAM GLENN Administration Insulin Glargine 30 units/ 0.3 mls @ 0 mls/hr 07/15/20 09:00 07/18/20 09:18 Miscellaneous Medication SC 0.3 mls QAM GLENN Administration As Directed Insulin Human Lispro 0 units 07/03/20 15:40 07/18/20 11:52 Humalog 300 Units/3 Ml Vial SC 2 unit .MILD SLIDING SCALE PRN Administration Mild Correctional Scale Insulin Human Lispro 0 units 07/05/20 01:18 07/15/20 21:23 Humalog 300 Units/3 Ml Vial SC 3 unit .BEDTIME SLIDING SC PRN Administration Bedtime Correctional Scale Levothyroxine Sodium 50 mcg 07/05/20 06:00 07/18/20 06:10 Levothyroxine Sodium 50 Mcg Tab PO 50 mcg 0600 GLENN Administration Magnesium Oxide 250 mg 07/05/20 09:00 07/18/20 10:00 Magnesium Oxide 250 Mg Tab PO 250 mg DAILY GLENN Administration Nystatin 1 gm 07/04/20 10:59 07/17/20 09:30 Nystatin Powder 15 Gm Bot TOP 1 gm BID PRN Administration Topical Irritations Ondansetron HCl 4 mg 07/03/20 15:27 07/05/20 02:02 Ondansetron Pf 4 Mg/2 Ml Vial IVP 4 mg Q6H PRN Administration Nausea/Vomiting Pantoprazole Sodium 40 mg 07/05/20 09:00 07/18/20 09:18 Pantoprazole 40 Mg Tab PO 40 mg DAILY GLENN Administration Sodium Chloride 10 ml 07/06/20 09:00 07/18/20 09:17 Flush - Normal Saline 10 Ml Syringe IVF 10 ml Q12HR GLENN Administration Zinc Sulfate 220 mg 07/04/20 21:00 07/18/20 09:17 Zinc Sulfate 220 Mg Cap PO 220 mg BID GLENN Administration - Exam General Appearance: awake alert ENT: normocephalic atraumatic Neck: supple, no JVD Heart: RRR Respiratory: normal chest expansion, no tachypnea, rhonchi Gastrointestinal: soft Extremities: no cyanosis, no clubbing Skin: normal turgor Neurological: cranial nerve grossly intact Hosp A/P - Plan 07/16: This is a 69-year-old female blind patient on admission on account of pneumonia due to Covid. Covid was diagnosed on 07/02/2020 She is currently weaned down from 5 to 4.5 L oxygenremained stable. We will continue weaning down oxygen and monitoring. Pneumonia due to Covid Continue supplemental oxygentry to wean down from 5 L however unable to tolerate lower. Completed over 10 days of Decadron We will discontinue today Acute hypoxic respiratory failure Continue treatment as above. Urinary tract infection Was on ceftriaxone however discontinued We will continue observing. No indication for antibiotics now ID on board Physical deconditioning PT on board Was unable to get out of bed today. Continue trying physical therapy Blindness CKD Creatinine has been stable Renal function stable. BMP tomorrow. Nephrology consult if deteriorates Heart failure with reduced EF EF 20 to 25% Currently appears stable We will monitor DVT prophylaxisLovenox CODE STATUSfull code 07/17: The patient's oxygenation is stable on 4 L of nasal cannula. Status post convalescent plasma and Decadron. Urine culture showing growth of VRE which is likely contamination as the patient does not have any signs of infection. Continue PT and OT. Pending placement. 07/18: The patient is now requiring 6 L of nasal cannula to maintain her oxygen saturations. She denies any complaints. Continue PT and OT. If her oxygenation level stabilizes, she would be a candidate for placement on Monday.
[2020-07-18] MEDS: Atorvastatin Calcium 10 MG TAB PO SCH (20:32)
[2020-07-19] MEDS: Levothyroxine Sodium 50 MCG TAB PO SCH (05:20)
[2020-07-19 05:34] LABS: #Eosinphils 0.1 thou/uL (0.0-0.7); #Lymphocytes 0.3 thou/uL (1.20-3.40); #Monocytes 0.5 thou/uL (0.11-0.59); #Neutrophils 7.7 thou/uL (1.40-6.50); %Eosinophils 0.7 % (0.0-10.0); %Lymphocytes 3.9 % (21.0-51.0); %Neutrophils 89.4 % (42.0-75.0); Hemoglobin 11.1 g/dL (12.0-16.0); Mean Corpuscular HGB CONC 30.6 g/dL (32.0-36.0); Mean Corpuscular Hemoglobin 26.3 pg (27.0-31.0); Mean Corpuscular Volume 86.2 fL (78.0-98.0); Mean Platelet Volume 11.9 fL (7.4-10.4); Platelet Count 112 thou/uL (130-400); RBC Distribution Width 19.1 % (11.5-14.5); Red Blood Cell (RBC) Count 4.21 mill/uL (4.20-5.40); White Blood Cell (WBC) Count 8.6 thou/uL (4.8-10.8)
[2020-07-19 05:53] LABS: Anion Gap 18 mmol/L (10-20); BUN (Urea Nitrogen) 113 mg/dL (9.8-20.1); CRP (Inflammatory) 14.46 mg/dL (= or < 0.5); Calc. Creatinine Clearance 53 mL/min (70-130); Calcium 9.2 mg/dL (7.8-10.44); Carbon Dioxide 22 mmol/L (23-31); Chloride 105 mmol/L (98-107); Glucose 138 mg/dL (80-115); Potassium 4.7 mmol/L (3.5-5.1); Sodium 140 mmol/L (136-145)
[2020-07-19 09:05] LABS: Hemoglobin 11.4 g/dL (12.0-16.0); Platelet Count 118 thou/uL (130-400)
[2020-07-19] MEDS: Cholecalciferol 1,000 UNITS (25 MCG) TAB PO SCH (10:44)
[2020-07-19] MEDS: Allopurinol 100 MG TAB PO SCH (10:44)
[2020-07-19] MEDS: Ascorbic Acid 500 mg Chewable Tablet PO SCH (10:44)
[2020-07-19] MEDS: Magnesium Oxide 250 MG TAB PO SCH (10:44)
[2020-07-19] MEDS: Zinc Sulfate 220 MG CAP PO SCH ×2 (10:44→21:18)
[2020-07-19] MEDS: Aspirin 81 mg Enteric Coated Tablet PO SCH (10:44)
[2020-07-19] MEDS: Furosemide 40 MG TAB PO SCH (10:44)
[2020-07-19] MEDS: Clopidogrel Bisulfate 75 MG TAB PO SCH (10:44)
[2020-07-19] MEDS: Insulin Glargine 30 UNITS in Pre-Filled Syringe 1 EACH SC SCH (10:45)
[2020-07-19] MEDS: Enoxaparin Sodium 60 MG/0.6 ML SYRINGE SC SCH (10:45)
[2020-07-19] MEDS ORDERED: Enoxaparin Sodium 60 MG/0.6 ML SYRINGE SC SCH (12:45)
--- NOTE | 2020-07-19 14:32 | PDOC.HOSPP ---
- Subjective Encounter Date: 07/19/20 - Objective Vital Signs & Weight: Vital Signs (12 hours) Temp Pulse Resp BP Pulse Ox 07/19/20 12:43 97 07/19/20 11:15 99.2 F 92 24 H 137/77 93 L 07/19/20 10:45 93 L 07/19/20 08:55 99.1 F 89 19 114/60 92 L 07/19/20 05:30 98.3 F 91 22 H 119/56 L 94 L Weight Admit Weight 305 lb 9.6 oz Weight 300 lb 4.8 oz I&O: 07/18/20 07/19/20 07/20/20 06:59 06:59 06:59 Intake Total 890 740 Output Total 550 1700 Balance 340 -960 Result Diagrams: 07/19/20 08:39 07/19/20 08:39 Additional Labs: Accuchecks 07/19/20 07/18/20 07/18/20 10:53 20:39 17:00 POC Glucose 215 H 129 H 139 H Hospitalist ROS - Medication Medications: Active Medications Generic Name Dose Route Start Last Admin Trade Name Freq PRN Reason Stop Dose Admin Acetaminophen 650 mg 07/03/20 15:27 07/18/20 11:50 Acetaminophen 325 Mg Tab PO 650 mg Q4H PRN Administration Headache/Fever/Mild Pain (1-3) Allopurinol 200 mg 07/05/20 09:00 07/19/20 10:44 Allopurinol 100 Mg Tab PO 200 mg DAILY GLENN Administration Ascorbic Acid 1,000 mg 07/05/20 09:00 07/19/20 10:44 Ascorbic Acid 500 Mg Chewable Tablet PO 1,000 mg DAILY GLENN Administration Aspirin 81 mg 07/05/20 09:00 07/19/20 10:44 Aspirin 81 Mg Enteric Coated Tablet PO 81 mg DAILY GLENN Administration Atorvastatin Calcium 10 mg 07/04/20 21:00 07/18/20 20:32 Atorvastatin Calcium 10 Mg Tab PO 10 mg HS GLENN Administration Bisacodyl 5 mg 07/04/20 10:58 07/16/20 06:27 Bisacodyl 5 Mg Tab PO 5 mg DAILY PRN Administration Constipation Cholecalciferol 1,000 units 07/05/20 09:00 07/19/20 10:44 Cholecalciferol 1,000 Units (25 Mcg) Tab PO 1,000 units DAILY GLENN Administration Clopidogrel Bisulfate 75 mg 07/05/20 09:00 07/19/20 10:44 Clopidogrel Bisulfate 75 Mg Tab PO 75 mg DAILY GLENN Administration Enoxaparin Sodium 60 mg 07/07/20 09:00 07/18/20 09:18 Enoxaparin Sodium 60 Mg/0.6 Ml Syringe SC 60 mg DAILY GLENN Administration Enoxaparin Sodium 60 mg 07/19/20 12:45 07/19/20 12:50 Enoxaparin Sodium 60 Mg/0.6 Ml Syringe SC 07/19/20 14:45 60 mg NOW GLENN Administration Furosemide 40 mg 07/05/20 09:00 07/19/20 10:44 Furosemide 40 Mg Tab PO 40 mg QAM GLENN Administration Insulin Glargine 30 units/ 0.3 mls @ 0 mls/hr 07/15/20 09:00 07/19/20 10:45 Miscellaneous Medication SC 0.3 mls QAM GLENN Administration As Directed Insulin Human Lispro 0 units 07/03/20 15:40 07/18/20 11:52 Humalog 300 Units/3 Ml Vial SC 2 unit .MILD SLIDING SCALE PRN Administration Mild Correctional Scale Insulin Human Lispro 0 units 07/05/20 01:18 07/15/20 21:23 Humalog 300 Units/3 Ml Vial SC 3 unit .BEDTIME SLIDING SC PRN Administration Bedtime Correctional Scale Levothyroxine Sodium 50 mcg 07/05/20 06:00 07/19/20 05:20 Levothyroxine Sodium 50 Mcg Tab PO 50 mcg 0600 GLENN Administration Magnesium Oxide 250 mg 07/05/20 09:00 07/19/20 10:44 Magnesium Oxide 250 Mg Tab PO 250 mg DAILY GLENN Administration Nystatin 1 gm 07/04/20 10:59 07/17/20 09:30 Nystatin Powder 15 Gm Bot TOP 1 gm BID PRN Administration Topical Irritations Ondansetron HCl 4 mg 07/03/20 15:27 07/05/20 02:02 Ondansetron Pf 4 Mg/2 Ml Vial IVP 4 mg Q6H PRN Administration Nausea/Vomiting Pantoprazole Sodium 40 mg 07/05/20 09:00 07/19/20 10:44 Pantoprazole 40 Mg Tab PO 40 mg DAILY GLENN Administration Sodium Chloride 10 ml 07/06/20 09:00 07/19/20 10:45 Flush - Normal Saline 10 Ml Syringe IVF 10 ml Q12HR GLENN Administration Zinc Sulfate 220 mg 07/04/20 21:00 07/19/20 10:44 Zinc Sulfate 220 Mg Cap PO 220 mg BID GLENN Administration - Exam General Appearance: awake alert ENT: normocephalic atraumatic Neck: supple, no JVD Heart: RRR Respiratory: normal chest expansion, no tachypnea Extremities: no cyanosis, no clubbing Hosp A/P - Plan 07/16: This is a 69-year-old female blind patient on admission on account of pneumonia due to Covid. Covid was diagnosed on 07/02/2020 She is currently weaned down from 5 to 4.5 L oxygenremained stable. We will continue weaning down oxygen and monitoring. Pneumonia due to Covid Continue supplemental oxygentry to wean down from 5 L however unable to tolerate lower. Completed over 10 days of Decadron We will discontinue today Acute hypoxic respiratory failure Continue treatment as above. Urinary tract infection Was on ceftriaxone however discontinued We will continue observing. No indication for antibiotics now ID on board Physical deconditioning PT on board Was unable to get out of bed today. Continue trying physical therapy Blindness CKD Creatinine has been stable Renal function stable. BMP tomorrow. Nephrology consult if deteriorates Heart failure with reduced EF EF 20 to 25% Currently appears stable We will monitor DVT prophylaxisLovenox CODE STATUSfull code 07/17: The patient's oxygenation is stable on 4 L of nasal cannula. Status post convalescent plasma and Decadron. Urine culture showing growth of VRE which is likely contamination as the patient does not have any signs of infection. Continue PT and OT. Pending placement. 07/18: The patient is now requiring 6 L of nasal cannula to maintain her oxygen sat urations. She denies any complaints. Continue PT and OT. If her oxygenation level stabilizes, she would be a candidate for placement on Monday. 07/19: The patient is requiring 5 L of nasal cannula tenting her oxygen saturations. C-reactive protein level is elevated and D-dimer slightly lower than yesterday. She appears to be comfortable without any significant symptoms. Given the persistent inflammation, I will restart dexamethasone.
[2020-07-19] MEDS ORDERED: Dexamethasone 4 mg/ml Vial SLOW IVP SCH (14:45)
[2020-07-19] MEDS: Nystatin Powder 15 GM BOT TOP PRN (15:45)
[2020-07-19] MEDS: HumaLOG 300 UNITS/3 ML VIAL SC PRN ×2 (17:50→21:33)
[2020-07-19] MEDS: Atorvastatin Calcium 10 MG TAB PO SCH (21:18)
[2020-07-20] MEDS: HumaLOG 300 UNITS/3 ML VIAL SC PRN ×4 (05:53→23:31)
[2020-07-20] MEDS: Levothyroxine Sodium 50 MCG TAB PO SCH (05:54)
[2020-07-20] MEDS: Insulin Glargine 30 UNITS in Pre-Filled Syringe 1 EACH SC SCH (09:04)
[2020-07-20] MEDS: Acetaminophen 325 MG TAB PO PRN (09:05)
[2020-07-20] MEDS: Enoxaparin Sodium 60 MG/0.6 ML SYRINGE SC SCH (09:05)
[2020-07-20] MEDS: Ascorbic Acid 500 mg Chewable Tablet PO SCH (09:06)
[2020-07-20] MEDS: Dexamethasone 4 mg/ml Vial SLOW IVP SCH (09:06)
[2020-07-20] MEDS: Cholecalciferol 1,000 UNITS (25 MCG) TAB PO SCH (09:07)
[2020-07-20] MEDS: Aspirin 81 mg Enteric Coated Tablet PO SCH (09:07)
[2020-07-20] MEDS: Clopidogrel Bisulfate 75 MG TAB PO SCH (09:07)
[2020-07-20] MEDS: Zinc Sulfate 220 MG CAP PO SCH (09:07)
[2020-07-20] MEDS: Magnesium Oxide 250 MG TAB PO SCH (09:07)
[2020-07-20] MEDS: Allopurinol 100 MG TAB PO SCH (09:07)
[2020-07-20] MEDS: Furosemide 40 MG TAB PO SCH (09:07)
[2020-07-20] MEDS: Nystatin Powder 15 GM BOT TOP PRN (09:45)
[2020-07-20] MEDS ORDERED: Albuterol 200 PUFF (6.7GM INHALER) INH SCH (10:15)
[2020-07-20 11:15] LABS: ALT (SGPT) 26 U/L (8-55); AST (SGOT) 18 U/L (5-34); Albumin 2.9 g/dL (3.4-4.8); Alkaline Phosphatase 153 U/L (40-110); Anion Gap 20 mmol/L (10-20); BUN (Urea Nitrogen) 111 mg/dL (9.8-20.1); Bilirubin, Total 0.9 mg/dL (0.2-1.2); Calc. Creatinine Clearance 47 mL/min (70-130); Calcium 9.4 mg/dL (7.8-10.44); Carbon Dioxide 22 mmol/L (23-31); Chloride 106 mmol/L (98-107); Globulin 3.7 g/dL (2.4-3.5); Glucose 332 mg/dL (80-115); Potassium 4.6 mmol/L (3.5-5.1); Protein, Total 6.6 g/dL (6.0-8.3); Sodium 143 mmol/L (136-145)
--- NOTE | 2020-07-20 12:08 | RAD ---
PORTABLE CHEST: Date: 07/20/2020 PROVIDED CLINICAL HISTORY: COVID pneumonia. FINDINGS: Comparison with 07/17/2020. The cardiac silhouette remains enlarged. Diffuse bilateral air space disease is demonstrated, similar to prior. No pleural fluid or pneumothorax apparent. IMPRESSION: Stable radiographic appearance of the chest. POS: DAMI
[2020-07-20 12:15] LABS: Band 6 % (5-11); Hemoglobin 10.7 g/dL (12.0-16.0); Lymphocytes 1 % (21-51); MDiff Complete? YES; Mean Corpuscular HGB CONC 30.5 g/dL (32.0-36.0); Mean Corpuscular Hemoglobin 26.3 pg (27.0-31.0); Mean Corpuscular Volume 86.3 fL (78.0-98.0); Mean Platelet Volume 12.1 fL (7.4-10.4); Monocytes 5 % (0-10); Neutrophil 88 % (42-75); Platelet Count 107 thou/uL (130-400); Platelet Morphology Comment Appears Decreased; Polychromasia SLIGHT = 2-3 cells (100X) (0-2/hpf); RBC Distribution Width 19.1 % (11.5-14.5); Red Blood Cell (RBC) Count 4.05 mill/uL (4.20-5.40); White Blood Cell (WBC) Count 6.4 thou/uL (4.8-10.8)
[2020-07-20] MEDS: Bumetanide 1 MG/4 ML VIAL IVP SCH (13:32)
--- NOTE | 2020-07-20 14:20 | PDOC.HOSPP ---
- Subjective Encounter Date: 07/20/20 - Objective Vital Signs & Weight: Vital Signs (12 hours) Temp Pulse Resp BP Pulse Ox 07/20/20 12:20 98.8 F 87 24 H 142/66 H 93 L 07/20/20 10:27 97.7 F 86 24 H 113/57 L 95 07/20/20 09:06 93 L 07/20/20 07:42 97.8 F 88 28 H 123/64 93 L 07/20/20 03:40 97.8 F 82 24 H 140/67 98 Weight Admit Weight 305 lb 9.6 oz Weight 295 lb 4.8 oz I&O: 07/19/20 07/20/20 07/21/20 06:59 06:59 06:59 Intake Total 740 1020 Output Total 1700 100 Balance -960 920 Result Diagrams: 07/20/20 10:31 07/20/20 10:31 Additional Labs: Accuchecks 07/20/20 07/20/20 07/19/20 10:30 03:46 21:24 POC Glucose 294 H 293 H 283 H 07/19/20 07/19/20 16:45 05:25 POC Glucose 255 H 137 H Hospitalist ROS - Medication Medications: Active Medications Generic Name Dose Route Start Last Admin Trade Name Freq PRN Reason Stop Dose Admin Acetaminophen 650 mg 07/03/20 15:27 07/20/20 09:05 Acetaminophen 325 Mg Tab PO 650 mg Q4H PRN Administration Headache/Fever/Mild Pain (1-3) Allopurinol 200 mg 07/05/20 09:00 07/20/20 09:07 Allopurinol 100 Mg Tab PO 200 mg DAILY GLENN Administration Ascorbic Acid 1,000 mg 07/05/20 09:00 07/20/20 09:06 Ascorbic Acid 500 Mg Chewable Tablet PO 1,000 mg DAILY GLENN Administration Aspirin 81 mg 07/05/20 09:00 07/20/20 09:07 Aspirin 81 Mg Enteric Coated Tablet PO 81 mg DAILY GLENN Administration Atorvastatin Calcium 10 mg 07/04/20 21:00 07/19/20 21:18 Atorvastatin Calcium 10 Mg Tab PO 10 mg HS GLENN Administration Bisacodyl 5 mg 07/04/20 10:58 07/16/20 06:27 Bisacodyl 5 Mg Tab PO 5 mg DAILY PRN Administration Constipation Bumetanide 1 mg 07/20/20 14:00 07/20/20 13:32 Bumetanide 1 Mg/4 Ml Vial IVP 1 mg 0600,1400 GLENN Administration Cholecalciferol 1,000 units 07/05/20 09:00 07/20/20 09:07 Cholecalciferol 1,000 Units (25 Mcg) Tab PO 1,000 units DAILY GLENN Administration Clopidogrel Bisulfate 75 mg 07/05/20 09:00 07/20/20 09:07 Clopidogrel Bisulfate 75 Mg Tab PO 75 mg DAILY GLENN Administration Dexamethasone 6 mg 07/20/20 09:00 07/20/20 09:06 Dexamethasone 4 Mg/Ml Vial SLOW IVP 6 mg DAILY GLENN Administration Enoxaparin Sodium 60 mg 07/07/20 09:00 07/20/20 09:05 Enoxaparin Sodium 60 Mg/0.6 Ml Syringe SC 60 mg DAILY GLENN Administration Insulin Glargine 30 units/ 0.3 mls @ 0 mls/hr 07/15/20 09:00 07/20/20 09:04 Miscellaneous Medication SC 0.3 mls QAM GLENN Administration As Directed Insulin Human Lispro 0 units 07/03/20 15:40 07/20/20 11:57 Humalog 300 Units/3 Ml Vial SC 4 unit .MILD SLIDING SCALE PRN Administration Mild Correctional Scale Insulin Human Lispro 0 units 07/05/20 01:18 07/19/20 21:33 Humalog 300 Units/3 Ml Vial SC 3 unit .BEDTIME SLIDING SC PRN Administration Bedtime Correctional Scale Levothyroxine Sodium 50 mcg 07/05/20 06:00 07/20/20 05:54 Levothyroxine Sodium 50 Mcg Tab PO 50 mcg 0600 GLENN Administration Magnesium Oxide 250 mg 07/05/20 09:00 07/20/20 09:07 Magnesium Oxide 250 Mg Tab PO 250 mg DAILY GLENN Administration Nystatin 1 gm 07/04/20 10:59 07/20/20 09:45 Nystatin Powder 15 Gm Bot TOP 1 gm BID PRN Administration Topical Irritations Ondansetron HCl 4 mg 07/03/20 15:27 07/05/20 02:02 Ondansetron Pf 4 Mg/2 Ml Vial IVP 4 mg Q6H PRN Administration Nausea/Vomiting Pantoprazole Sodium 40 mg 07/05/20 09:00 07/20/20 09:07 Pantoprazole 40 Mg Tab PO 40 mg DAILY GLENN Administration Sodium Chloride 10 ml 07/06/20 09:00 07/20/20 09:06 Flush - Normal Saline 10 Ml Syringe IVF 10 ml Q12HR GLENN Administration Zinc Sulfate 220 mg 07/04/20 21:00 07/20/20 09:07 Zinc Sulfate 220 Mg Cap PO 220 mg BID GLENN Administration - Exam General Appearance: awake alert ENT: normocephalic atraumatic Neck: supple, no JVD Respiratory: no tachypnea Gastrointestinal: soft Extremities: no cyanosis, no clubbing Hosp A/P - Plan 07/16: This is a 69-year-old female blind patient on admission on account of pneumonia due to Covid. Covid was diagnosed on 07/02/2020 She is currently weaned down from 5 to 4.5 L oxygenremained stable. We will continue weaning down oxygen and monitoring. Pneumonia due to Covid Continue supplemental oxygentry to wean down from 5 L however unable to tolerate lower. Completed over 10 days of Decadron We will discontinue today Acute hypoxic respiratory failure Continue treatment as above. Urinary tract infection Was on ceftriaxone however discontinued We will continue observing. No indication for antibiotics now ID on board Physical deconditioning PT on board Was unable to get out of bed today. Continue trying physical therapy Blindness CKD Creatinine has been stable Renal function stable. BMP tomorrow. Nephrology consult if deteriorates Heart failure with reduced EF EF 20 to 25% Currently appears stable We will monitor DVT prophylaxisLovenox CODE STATUSfull code 07/17: The patient's oxygenation is stable on 4 L of nasal cannula. Status post convalescent plasma and Decadron. Urine culture showing growth of VRE which is likely contamination as the patient does not have any signs of infection. Continue PT and OT. Pending placement. 07/18: The patient is now requiring 6 L of nasal cannula to maintain her oxygen saturations. She denies any complaints. Continue PT and OT. If her oxygenation level stabilizes, she would be a candidate for placement on Monday. 07/19: The patient is requiring 5 L of nasal cannula tenting her oxygen saturations. C-reactive protein level is elevated and D-dimer slightly lower than yesterday. She appears to be comfortable without any significant symptoms. Given the persistent inflammation, I will restart dexamethasone. 11/30: The patient has been short of breath today. Chest x-ray revealed bilateral infiltrates and her BNP was elevated to over 4000. The patient is in a state of acute on chronic heart failure with reduced action fraction. Change diuretics to Bumex 1 mg IV twice daily. Consult nephrology in light of her chronic renal failure. Continue current management for Covid with dexamethasone.
[2020-07-20] MEDS: Carvedilol 6.25 MG TAB PO SCH (17:31)
--- NOTE | 2020-07-20 17:58 | PRG ---
DATE OF SERVICE: 07/20/2020 SUBJECTIVE: The patient is feeling weak. She cannot stand or walk. Denies any chest pain. She is dyspneic with exertion and at rest. No abdominal pain. She is voiding in the diaper. OBJECTIVE: VITAL SIGNS: Temperature has been normal and her O2 saturations are between 93% and 97% on nasal cannula 6 L. She had been on Venturi mask for a while, but that was changed back to nasal cannula. LUNGS: Coarse breath sounds. HEART: S1 and S2, regular rate. ABDOMEN: Soft and not distended. Stage 3 presacral decubitus. EXTREMITIES: Able to move extremities. LABORATORY DATA: White cell count 6.4, hemoglobin 10.7, platelets 107. D-dimer 0.39 and ferritin is down to 511. CRP went down and now went up again. Microbiology with vancomycin-resistant Enterococcus. The patient is on Decadron and other medications. ASSESSMENT AND DISCUSSION: Type 2 diabetes, cardiomyopathy, [id number] COVID, still with quite high levels of nasal cannula supplementation, but not high flow yet. Inflammatory markers, particularly CRP has turned around and is getting worse. It could be related to the sacral decubitus or urinary tract infection. Or worsening of the Covid 19. Job ID: [id number] [facility]
[2020-07-21] MEDS: Zinc Sulfate 220 MG CAP PO SCH ×3 (00:53→22:05)
[2020-07-21] MEDS: Atorvastatin Calcium 10 MG TAB PO SCH ×2 (00:53→22:05)
[2020-07-21] MEDS: Levothyroxine Sodium 50 MCG TAB PO SCH (06:43)
[2020-07-21] MEDS: Bumetanide 1 MG/4 ML VIAL IVP SCH ×2 (06:43→14:06)
[2020-07-21] MEDS: HumaLOG 300 UNITS/3 ML VIAL SC PRN ×3 (06:44→22:04)
[2020-07-21] MEDS: Enoxaparin Sodium 60 MG/0.6 ML SYRINGE SC SCH (09:28)
[2020-07-21] MEDS: Dexamethasone 4 mg/ml Vial SLOW IVP SCH (09:29)
--- NOTE | 2020-07-21 09:47 | CON ---
DATE OF CONSULTATION: 07/21/2020 CONSULTING PHYSICIAN: Dr. Obrien. REASON FOR CONSULTATION: Acute kidney injury. REASON FOR ADMISSION: Shortness of breath. HISTORY OF PRESENT ILLNESS: This is a 69-year-old female with history of type 2 diabetes, hypertension, coronary artery disease, came to the hospital with shortness of breath and is COVID positive and has been treated here. The patient also is fluid overloaded and she does have CKD stage 4. Nephrology consult. We will monitor renal function while she is having diuresis. The patient is still short of breath. The patient was seen at the room. PAST MEDICAL HISTORY: Positive for chronic kidney disease, type 2 diabetes, morbid obesity, coronary artery disease. PAST SURGICAL HISTORY: Cholecystectomy, lumbar fusion. HOME MEDICATIONS: Reviewed. ALLERGIES: NO KNOWN DRUG ALLERGIES. SOCIAL HISTORY: No smoking, alcohol, or illicit drugs. FAMILY HISTORY: No history of kidney disease. REVIEW OF SYSTEMS: CONSTITUTIONAL: Negative for weight loss or gain, ability to conduct usual activities. SKIN: Negative for rash, itching. EYES: Negative for double vision, pain. ENT/MOUTH: Negative for nose bleeding, neck stiffness, pain, tenderness. CARDIOVASCULAR: Negative for palpitations, dyspnea on exertion, orthopnea. RESPIRATORY: Negative for shortness of breath, wheezing, cough, hemoptysis, fever or night sweats. GASTROINTESTINAL: Negative for poor appetite, abdominal pain, heartburn, nausea, vomiting, constipation, or diarrhea. GENITOURINARY: Negative for urgency, frequency, dysuria, nocturia. MUSCULOSKELETAL: Negative for pain, swelling. NEUROLOGIC/PSYCHIATRIC: Negative for anxiety, depression. ALLERGY/IMMUNOLOGIC: Negative for skin rash, bleeding tendency. PHYSICAL EXAMINATION: GENERAL: This is a morbidly obese female, mild distress. VITAL SIGNS: Temperature 98.1, pulse 83, respiratory rate 20, blood pressure 134/63. HEENT: Atraumatic and normocephalic. NECK: Supple. CV: S1 and S2 heard. RESPIRATORY: Coarse breath sounds. GI: Abdomen is soft. MUSCULOSKELETAL: 1+ edema. DERMATOLOGIC: No skin rash. NEUROLOGIC: Awake and alert. LABORATORY DATA: Hemoglobin is 10.7, potassium 4.6, BUN 111, creatinine is 2.4. ASSESSMENT AND PLAN: 1. Acute kidney injury on chronic kidney disease stage 4. Creatinine is stable, around her baseline numbers. Elevated BUN. 2. Cardiorenal syndrome. 3. Anemia of chronic disease. 4. Morbid obesity. 5. Hypoalbuminemia. 6. Type 2 diabetes with hyperglycemia. We will monitor renal function. Agree with diuretics for now with close monitoring of renal function and electrolytes. Thank you for the consult. Avoid nephrotoxins and we will follow. Job ID: [id number]
[2020-07-21] MEDS: Cholecalciferol 1,000 UNITS (25 MCG) TAB PO SCH (11:05)
[2020-07-21] MEDS: Aspirin 81 mg Enteric Coated Tablet PO SCH (11:05)
[2020-07-21] MEDS: Allopurinol 100 MG TAB PO SCH (11:05)
[2020-07-21] MEDS: Carvedilol 6.25 MG TAB PO SCH ×2 (11:05→18:07)
[2020-07-21] MEDS: Ascorbic Acid 500 mg Chewable Tablet PO SCH (11:05)
[2020-07-21] MEDS: Clopidogrel Bisulfate 75 MG TAB PO SCH (11:06)
[2020-07-21] MEDS: Magnesium Oxide 250 MG TAB PO SCH (11:06)
[2020-07-21] MEDS: Insulin Glargine 40 UNITS in Pre-Filled Syringe 1 EACH SC SCH (11:06)
[2020-07-21 11:22] LABS: Actual Bicarbonate (HCO3a) 26.4 mEq/L (22-28); Analyzer IN Cardio OR; Base Excess (BEa) 3.2 mEq/L (-2.0 to +3.0); CO2 Tension 35.5 mmHg (35.0-45.0); Calcium, Ionized (arterial) 1.26 mmol/L (1.12-1.30); Hemoglobin (Hb) 11.2 g/dL (12.0-16.0); Potassium - ABG Lab 4.31 mmol/L (3.70-5.30); pH, Arterial 7.49 (7.35-7.45)
[2020-07-21 11:44] LABS: ALV-art Gradient 262.125 mmHg (0-20); Puncture Site RRA
[2020-07-21 12:54] LABS: #Lymphocytes 0.2 thou/uL (1.20-3.40); #Monocytes 0.3 thou/uL (0.11-0.59); #Neutrophils 6.5 thou/uL (1.40-6.50); %Basophils 0.2 % (0.0-1.0); %Eosinophils 0.1 % (0.0-10.0); %Lymphocytes 3.1 % (21.0-51.0); %Monocytes 3.7 % (0.0-10.0); %Neutrophils 92.9 % (42.0-75.0); Hemoglobin 10.9 g/dL (12.0-16.0); Mean Corpuscular HGB CONC 30.5 g/dL (32.0-36.0); Mean Corpuscular Hemoglobin 26.4 pg (27.0-31.0); Mean Corpuscular Volume 86.5 fL (78.0-98.0); Mean Platelet Volume 12.2 fL (7.4-10.4); Platelet Count 102 thou/uL (130-400); Red Blood Cell (RBC) Count 4.12 mill/uL (4.20-5.40); White Blood Cell (WBC) Count 6.9 thou/uL (4.8-10.8)
[2020-07-21 13:16] LABS: Anion Gap 17 mmol/L (10-20); BUN (Urea Nitrogen) 115 mg/dL (9.8-20.1); Calc. Creatinine Clearance 45 mL/min (70-130); Calcium 9.6 mg/dL (7.8-10.44); Carbon Dioxide 27 mmol/L (23-31); Chloride 106 mmol/L (98-107); Glucose 340 mg/dL (80-115); Potassium 4.4 mmol/L (3.5-5.1); Sodium 146 mmol/L (136-145)
--- NOTE | 2020-07-21 14:20 | PDOC.HOSPP ---
- Subjective Encounter Date: 07/21/20 Subjective: Patient has been more lethargic today. Her oxygen requirements are increasing. - Objective Vital Signs & Weight: Vital Signs (12 hours) Temp Pulse Resp BP Pulse Ox 07/21/20 11:44 95 07/21/20 09:15 98.6 F 80 20 108/53 L 93 L 07/21/20 03:24 98.1 F 83 20 134/63 90 L Weight Admit Weight 305 lb 9.6 oz Weight 295 lb 4.8 oz I&O: 07/20/20 07/21/20 07/22/20 06:59 06:59 06:59 Intake Total 1020 800 Output Total 100 Balance 920 800 Result Diagrams: 07/21/20 12:41 07/21/20 12:41 Additional Labs: Accuchecks 07/21/20 07/21/20 07/20/20 10:08 05:35 20:21 POC Glucose 321 H 336 H 398 H 07/20/20 16:10 POC Glucose 372 H Hospitalist ROS - Medication Medications: Active Medications Generic Name Dose Route Start Last Admin Trade Name Freq PRN Reason Stop Dose Admin Acetaminophen 650 mg 07/03/20 15:27 07/20/20 09:05 Acetaminophen 325 Mg Tab PO 650 mg Q4H PRN Administration Headache/Fever/Mild Pain (1-3) Allopurinol 200 mg 07/05/20 09:00 07/21/20 11:05 Allopurinol 100 Mg Tab PO Not Given DAILY [facility] Ascorbic Acid 1,000 mg 07/05/20 09:00 07/21/20 11:05 Ascorbic Acid 500 Mg Chewable Tablet PO Not Given DAILY [facility] Aspirin 81 mg 07/05/20 09:00 07/21/20 11:05 Aspirin 81 Mg Enteric Coated Tablet PO Not Given DAILY [facility] Atorvastatin Calcium 10 mg 07/04/20 21:00 07/21/20 00:53 Atorvastatin Calcium 10 Mg Tab PO Not Given HS [facility] Bisacodyl 5 mg 07/04/20 10:58 07/16/20 06:27 Bisacodyl 5 Mg Tab PO 5 mg DAILY PRN Administration Constipation Bumetanide 1 mg 07/20/20 14:00 07/21/20 14:06 Bumetanide 1 Mg/4 Ml Vial IVP 1 mg 0600,1400 [facility] Administration Carvedilol 6.25 mg 07/20/20 17:00 07/21/20 11:05 Carvedilol 6.25 Mg Tab PO Not Given BID-[facility] Cholecalciferol 1,000 units 07/05/20 09:00 07/21/20 11:05 Cholecalciferol 1,000 Units (25 Mcg) Tab PO Not Given DAILY [facility] Clopidogrel Bisulfate 75 mg 07/05/20 09:00 07/21/20 11:06 Clopidogrel Bisulfate 75 Mg Tab PO Not Given DAILY [facility] Dexamethasone 6 mg 07/20/20 09:00 07/21/20 09:29 Dexamethasone 4 Mg/Ml Vial SLOW IVP 6 mg DAILY [facility] Administration Enoxaparin Sodium 60 mg 07/07/20 09:00 07/21/20 09:28 Enoxaparin Sodium 60 Mg/0.6 Ml Syringe SC 60 mg DAILY [facility] Administration Insulin Glargine 40 units/ 0.4 mls @ 0 mls/hr 07/21/20 09:00 07/21/20 11:06 Miscellaneous Medication SC [facility] Insulin Human Lispro 0 units 07/05/20 01:18 07/20/20 23:31 Humalog 300 Units/3 Ml Vial SC 5 unit .BEDTIME SLIDING SC PRN Administration Bedtime Correctional Scale Levothyroxine Sodium 50 mcg 07/05/20 06:00 07/21/20 06:43 Levothyroxine Sodium 50 Mcg Tab PO Not Given 0600 [facility] Magnesium Oxide 250 mg 07/05/20 09:00 07/21/20 11:06 Magnesium Oxide 250 Mg Tab PO Not Given DAILY [facility] Nystatin 1 gm 07/04/20 10:59 07/20/20 09:45 Nystatin Powder 15 Gm Bot TOP 1 gm BID PRN Administration Topical Irritations Ondansetron HCl 4 mg 07/03/20 15:27 07/05/20 02:02 Ondansetron Pf 4 Mg/2 Ml Vial IVP 4 mg Q6H PRN Administration Nausea/Vomiting Pantoprazole Sodium 40 mg 07/05/20 09:00 07/21/20 11:06 Pantoprazole 40 Mg Tab PO Not Given DAILY [facility] Sodium Chloride 10 ml 07/06/20 09:00 07/21/20 09:31 Flush - Normal Saline 10 Ml Syringe IVF 10 ml Q12HR [facility] Administration Zinc Sulfate 220 mg 07/04/20 21:00 07/21/20 11:06 Zinc Sulfate 220 Mg Cap PO Not Given BID [facility] - Exam General Appearance: awake alert ENT: normocephalic atraumatic Heart: RRR Respiratory: normal chest expansion, no tachypnea Gastrointestinal: soft Extremities: no cyanosis Neurological: cranial nerve grossly intact, no focal deficits Hosp A/P - Plan 07/16: This is a 69-year-old female blind patient on admission on account of pneumonia due to Covid. Covid was diagnosed on 07/02/2020 She is currently weaned down from 5 to 4.5 L oxygenremained stable. We will continue weaning down oxygen and monitoring. Pneumonia due to Covid Continue supplemental oxygentry to wean down from 5 L however unable to tolerate lower. Completed over 10 days of Decadron We will discontinue today Acute hypoxic respiratory failure Continue treatment as above. Urinary tract infection Was on ceftriaxone however discontinued We will continue observing. No indication for antibiotics now ID on board Physical deconditioning PT on board Was unable to get out of bed today. Continue trying physical therapy Blindness CKD Creatinine has been stable Renal function stable. [facility] tomorrow. Nephrology consult if deteriorates Heart failure with reduced EF EF 20 to 25% Currently appears stable We will monitor DVT prophylaxisLovenox CODE STATUSfull code 07/17: The patient's oxygenation is stable on 4 L of nasal cannula. Status post convalescent plasma and Decadron. Urine culture showing growth of VRE which is likely contamination as the patient does not have any signs of infection. Continue PT and OT. Pending placement. 07/18: The patient is now requiring 6 L of nasal cannula to maintain her oxygen saturations. She denies any complaints. Continue PT and OT. If her oxygenation level stabilizes, she would be a candidate for placement on Monday. 07/19: The patient is requiring 5 L of nasal cannula tenting her oxygen saturations. C-reactive protein level is elevated and D-dimer slightly lower than yesterday. She appears to be comfortable without any significant symptoms. Given the persistent inflammation, I will restart dexamethasone. 07/20: The patient has been short of breath today. Chest x-ray revealed bilateral infiltrates and her BNP was elevated to over 4000. The patient is in a state of acute on chronic heart failure with reduced action fraction. Change diuretics to Bumex 1 mg IV twice daily. Consult nephrology in light of her chronic renal failure. Continue current management for Covid with dexamethasone. 07/21: The patient is more lethargic today. She is hypoxic and ABG reveals PO2 of 50. We will start the patient on high flow nasal cannula to achieve oxygen saturation greater than 92%. Continue diuresis and check BMP daily.
[2020-07-22 05:39] LABS: #Lymphocytes 0.2 thou/uL (1.20-3.40); #Monocytes 0.3 thou/uL (0.11-0.59); #Neutrophils 6.4 thou/uL (1.40-6.50); %Eosinophils 0.1 % (0.0-10.0); %Lymphocytes 2.7 % (21.0-51.0); %Monocytes 3.8 % (0.0-10.0); %Neutrophils 93.4 % (42.0-75.0); Hemoglobin 10.3 g/dL (12.0-16.0); Mean Corpuscular HGB CONC 30.7 g/dL (32.0-36.0); Mean Corpuscular Hemoglobin 26.2 pg (27.0-31.0); Mean Corpuscular Volume 85.4 fL (78.0-98.0); Mean Platelet Volume 12.4 fL (7.4-10.4); Platelet Count 90 thou/uL (130-400); RBC Distribution Width 18.9 % (11.5-14.5); Red Blood Cell (RBC) Count 3.94 mill/uL (4.20-5.40); White Blood Cell (WBC) Count 6.8 thou/uL (4.8-10.8)
[2020-07-22 05:54] LABS: Anion Gap 16 mmol/L (10-20); BUN (Urea Nitrogen) 119 mg/dL (9.8-20.1); CRP (Inflammatory) 12.88 mg/dL (= or < 0.5); Calc. Creatinine Clearance 46 mL/min (70-130); Calcium 9.5 mg/dL (7.8-10.44); Carbon Dioxide 27 mmol/L (23-31); Chloride 108 mmol/L (98-107); Glucose 186 mg/dL (80-115); Potassium 4.3 mmol/L (3.5-5.1); Sodium 147 mmol/L (136-145)
[2020-07-22] MEDS: Levothyroxine Sodium 50 MCG TAB PO SCH (06:03)
[2020-07-22] MEDS: Bumetanide 1 MG/4 ML VIAL IVP SCH ×2 (06:03→17:05)
[2020-07-22] MEDS: HumaLOG 300 UNITS/3 ML VIAL SC PRN (06:09)
[2020-07-22 08:57] LABS: Hemoglobin 10.5 g/dL (12.0-16.0); Platelet Count 84 thou/uL (130-400)
--- NOTE | 2020-07-22 09:23 | PRG ---
DATE OF SERVICE: 07/22/2020 SUBJECTIVE: The patient is on COVID isolation. OBJECTIVE: VITAL SIGNS: Temperature 99.0, pulse 94, respiratory rate 20, blood pressure 138/63. LABORATORY DATA: Sodium 147, potassium 4.3, BUN is 119, creatinine is 2.4. ASSESSMENT AND PLAN: 1. Acute kidney injury on chronic kidney stage 4, stable. 2. Elevated BUN. 3. Cardiorenal syndrome. 4. Anemia. 5. Morbid obesity. 6. Hypernatremia. Recommend free water. 7. Continue to monitor. Job ID: [id number]
[2020-07-22] MEDS: Dexamethasone 4 mg/ml Vial SLOW IVP SCH (10:37)
--- NOTE | 2020-07-22 13:37 | PDOC.HOSPP ---
- Subjective Encounter Date: 07/22/20 - Objective Vital Signs & Weight: Vital Signs (12 hours) Temp Pulse Resp BP Pulse Ox 07/22/20 10:37 100.3 F H 91 28 H 109/54 L 95 07/22/20 09:55 97 07/22/20 04:20 99.0 F 94 22 H 138/63 07/22/20 03:01 100 Weight Admit Weight 305 lb 9.6 oz Weight 295 lb 4.8 oz I&O: 07/21/20 07/22/20 07/23/20 06:59 06:59 06:59 Intake Total 800 40 Balance 800 40 Result Diagrams: 07/22/20 08:32 07/22/20 08:32 Additional Labs: Accuchecks 07/22/20 07/22/20 07/21/20 10:52 04:54 20:35 POC Glucose 139 H 199 H 269 H 07/21/20 16:19 POC Glucose 312 H Hospitalist ROS - Medication Medications: Active Medications Generic Name Dose Route Start Last Admin Trade Name Freq PRN Reason Stop Dose Admin Acetaminophen 650 mg 07/03/20 15:27 07/20/20 09:05 Acetaminophen 325 Mg Tab PO 650 mg Q4H PRN Administration Headache/Fever/Mild Pain (1-3) Allopurinol 200 mg 07/05/20 09:00 07/21/20 11:05 Allopurinol 100 Mg Tab PO Not Given DAILY [facility] Ascorbic Acid 1,000 mg 07/05/20 09:00 07/21/20 11:05 Ascorbic Acid 500 Mg Chewable Tablet PO Not Given DAILY [facility] Aspirin 81 mg 07/05/20 09:00 07/21/20 11:05 Aspirin 81 Mg Enteric Coated Tablet PO Not Given DAILY [facility] Atorvastatin Calcium 10 mg 07/04/20 21:00 07/21/20 22:05 Atorvastatin Calcium 10 Mg Tab PO Not Given HS [facility] Bisacodyl 5 mg 07/04/20 10:58 07/16/20 06:27 Bisacodyl 5 Mg Tab PO 5 mg DAILY PRN Administration Constipation Bumetanide 1 mg 07/20/20 14:00 07/22/20 06:03 Bumetanide 1 Mg/4 Ml Vial IVP 1 mg 0600,1400 [facility] Administration Carvedilol 6.25 mg 07/20/20 17:00 07/21/20 18:07 Carvedilol 6.25 Mg Tab PO Not Given BID-[facility] Cholecalciferol 1,000 units 07/05/20 09:00 07/21/20 11:05 Cholecalciferol 1,000 Units (25 Mcg) Tab PO Not Given DAILY [facility] Clopidogrel Bisulfate 75 mg 07/05/20 09:00 07/21/20 11:06 Clopidogrel Bisulfate 75 Mg Tab PO Not Given DAILY [facility] Dexamethasone 6 mg 07/20/20 09:00 07/22/20 10:37 Dexamethasone 4 Mg/Ml Vial SLOW IVP 6 mg DAILY [facility] Administration Insulin Glargine 40 units/ 0.4 mls @ 0 mls/hr 07/21/20 09:00 07/21/20 11:06 Miscellaneous Medication SC [facility] Insulin Human Lispro 0 units 07/05/20 01:18 07/21/20 22:04 Humalog 300 Units/3 Ml Vial SC 3 unit .BEDTIME SLIDING SC PRN Administration Bedtime Correctional Scale Insulin Human Lispro 0 units 07/21/20 12:15 07/22/20 06:09 Humalog 300 Units/3 Ml Vial SC 9 unit .AGGRESSIVE SLIDING PRN Administration AGGRESSIVE SLIDING SCALE Protocol Levothyroxine Sodium 50 mcg 07/05/20 06:00 07/22/20 06:03 Levothyroxine Sodium 50 Mcg Tab PO Not Given 0600 [facility] Magnesium Oxide 250 mg 07/05/20 09:00 07/21/20 11:06 Magnesium Oxide 250 Mg Tab PO Not Given DAILY [facility] Nystatin 1 gm 07/04/20 10:59 07/20/20 09:45 Nystatin Powder 15 Gm Bot TOP 1 gm BID PRN Administration Topical Irritations Ondansetron HCl 4 mg 07/03/20 15:27 07/05/20 02:02 Ondansetron Pf 4 Mg/2 Ml Vial IVP 4 mg Q6H PRN Administration Nausea/Vomiting Pantoprazole Sodium 40 mg 07/05/20 09:00 07/21/20 11:06 Pantoprazole 40 Mg Tab PO Not Given DAILY [facility] Sodium Chloride 10 ml 07/06/20 09:00 07/22/20 10:37 Flush - Normal Saline 10 Ml Syringe IVF 10 ml Q12HR [facility] Administration Zinc Sulfate 220 mg 07/04/20 21:00 07/21/20 22:05 Zinc Sulfate 220 Mg Cap PO Not Given BID [facility] - Exam General Appearance: awake alert ENT: normocephalic atraumatic Neck: supple, no JVD Heart: RRR Respiratory: normal chest expansion, no tachypnea Gastrointestinal: soft Extremities: no cyanosis, no clubbing Hosp A/P - Plan This is a 69-year-old female blind patient on admission on account of pneumonia due to Covid. Covid was diagnosed on 07/02/2020 The patient is currently requiring high flow nasal cannula due to worsening oxygenation. Continue dexamethasone due to elevated inflammatory markers in the setting of COVID-19 infection. Chronic kidney disease stage IV currently stable. The patient with volume overload with heart failure with reduced action fraction with EF of 20%. Diuretics on hold as the patient is unable to take orally because she failed swallow evaluation. Continue ST. Pneumonia due to Covid Acute hypoxic respiratory failure Continue treatment as above. Urinary tract infection Physical deconditioning Blindness CKD Heart failure with reduced EF DVT prophylaxisLovenox CODE STATUSfull code
[2020-07-22] MEDS ORDERED: Enoxaparin Sodium 40 MG/0.4 ML SYRINGE SC SCH (16:30)
[2020-07-22] MEDS ORDERED: Sodium Chloride 0.9% 500 ML IV SCH (16:45)
[2020-07-22] MEDS: Allopurinol 100 MG TAB PO SCH (16:55)
[2020-07-22] MEDS: Carvedilol 6.25 MG TAB PO SCH ×2 (16:55→17:06)
[2020-07-22] MEDS: Aspirin 81 mg Enteric Coated Tablet PO SCH (16:56)
[2020-07-22] MEDS: Clopidogrel Bisulfate 75 MG TAB PO SCH (16:56)
[2020-07-22] MEDS: Ascorbic Acid 500 mg Chewable Tablet PO SCH (16:56)
[2020-07-22] MEDS: Cholecalciferol 1,000 UNITS (25 MCG) TAB PO SCH (16:56)
[2020-07-22] MEDS: Insulin Glargine 40 UNITS in Pre-Filled Syringe 1 EACH SC SCH (16:57)
[2020-07-22] MEDS: Magnesium Oxide 250 MG TAB PO SCH (16:57)
[2020-07-22] MEDS: Zinc Sulfate 220 MG CAP PO SCH ×2 (16:57→20:21)
[2020-07-22] MEDS: Enoxaparin Sodium 60 MG/0.6 ML SYRINGE SC SCH (17:07)
[2020-07-22] MEDS: Atorvastatin Calcium 10 MG TAB PO SCH (20:21)
[2020-07-23] MEDS: Levothyroxine Sodium 50 MCG TAB PO SCH (05:01)
[2020-07-23 05:10] LABS: Anion Gap 22 mmol/L (10-20); Calc. Creatinine Clearance 39 mL/min (70-130); Carbon Dioxide 21 mmol/L (23-31); Chloride 110 mmol/L (98-107); Glucose 185 mg/dL (80-115); Potassium 4.8 mmol/L (3.5-5.1); Sodium 148 mmol/L (136-145)
[2020-07-23] MEDS: Bumetanide 1 MG/4 ML VIAL IVP SCH (05:20)
[2020-07-23 05:22] LABS: BUN (Urea Nitrogen) 123 mg/dL (9.8-20.1)
[2020-07-23 05:25] LABS: Band 15 % (5-11); Hemoglobin 9.9 g/dL (12.0-16.0); Hypochromia SLIGHT = 6-15 cells (100X) (0-5/hpf); Lymphocytes 4 % (21-51); MDiff Complete? YES; Mean Corpuscular Hemoglobin 26.3 pg (27.0-31.0); Mean Corpuscular Volume 84.8 fL (78.0-98.0); Mean Platelet Volume 10.2 fL (7.4-10.4); Monocytes 5 % (0-10); Neutrophil 76 % (42-75); Platelet Count 67 thou/uL (130-400); Platelet Morphology Comment Appears Decreased; RBC Distribution Width 18.6 % (11.5-14.5); Red Blood Cell (RBC) Count 3.75 mill/uL (4.20-5.40); White Blood Cell (WBC) Count 5.7 thou/uL (4.8-10.8)
[2020-07-23] MEDS: Dexamethasone 4 mg/ml Vial SLOW IVP SCH (09:26)
[2020-07-23] MEDS: Clopidogrel Bisulfate 75 MG TAB PO SCH ×2 (09:26→10:55)
[2020-07-23] MEDS: Aspirin 81 mg Enteric Coated Tablet PO SCH ×2 (09:26→10:55)
[2020-07-23] MEDS: Allopurinol 100 MG TAB PO SCH ×2 (09:26→10:58)
[2020-07-23] MEDS: Cholecalciferol 1,000 UNITS (25 MCG) TAB PO SCH ×2 (09:26→10:56)
[2020-07-23] MEDS: Carvedilol 6.25 MG TAB PO SCH ×3 (09:26→18:30)
[2020-07-23] MEDS: Ascorbic Acid 500 mg Chewable Tablet PO SCH ×2 (09:26→10:56)
[2020-07-23] MEDS: Enoxaparin Sodium 40 MG/0.4 ML SYRINGE SC SCH (09:29)
[2020-07-23] MEDS: Insulin Glargine 40 UNITS in Pre-Filled Syringe 1 EACH SC SCH (09:30)
[2020-07-23] MEDS: Magnesium Oxide 250 MG TAB PO SCH ×2 (09:31→10:58)
[2020-07-23] MEDS: Zinc Sulfate 220 MG CAP PO SCH ×3 (09:31→21:28)
--- NOTE | 2020-07-23 10:22 | PRG ---
DATE OF SERVICE: 07/23/2020 SUBJECTIVE: The patient is on COVID isolation. OBJECTIVE: VITAL SIGNS: Temperature 96, pulse 84, respiratory rate 20, blood pressure 163/58. LABORATORY DATA: Potassium 4.8, BUN is 123, creatinine is 2.7. ASSESSMENT AND PLAN: 1. Acute kidney injury on chronic kidney disease, stage 4. Renal function going up, creatinine and BUN getting worse. I did talk with Dr. Obrien to consider reducing the diuretics. 2. Elevated BUN. 3. Cardiorenal syndrome. 4. Anemia. 5. Morbid obesity. 6. Hypernatremia. Recommend free water. 7. Recommend to hold or reduce the diuretic dose and monitor renal function closely. Respiratory issue seems to be most likely related to COVID-19 infection to me. We will follow. Job ID: [id number]
[2020-07-23] MEDS: HumaLOG 300 UNITS/3 ML VIAL SC PRN ×3 (12:53→21:28)
--- NOTE | 2020-07-23 14:48 | PDOC.HOSPP ---
- Subjective Encounter Date: 07/23/20 - Objective Vital Signs & Weight: Vital Signs (12 hours) Temp Pulse Resp BP Pulse Ox 07/23/20 13:00 99.6 F 85 26 H 120/60 96 07/23/20 09:35 98.9 F 89 26 H 142/67 H 98 07/23/20 03:34 98.6 F 84 24 H 163/58 H 97 Weight Admit Weight 305 lb 9.6 oz Weight 280 lb 14.4 oz I&O: 07/22/20 07/23/20 07/24/20 06:59 06:59 06:59 Intake Total 40 500 Balance 40 500 Result Diagrams: 07/23/20 04:32 07/23/20 04:32 Additional Labs: Accuchecks 07/23/20 07/22/20 07/22/20 09:51 20:31 14:50 POC Glucose 217 H 160 H 134 H Hospitalist ROS - Medication Medications: Active Medications Generic Name Dose Route Start Last Admin Trade Name Freq PRN Reason Stop Dose Admin Acetaminophen 650 mg 07/03/20 15:27 07/20/20 09:05 Acetaminophen 325 Mg Tab PO 650 mg Q4H PRN Administration Headache/Fever/Mild Pain (1-3) Acetaminophen 650 mg 07/03/20 15:27 07/22/20 23:59 Acetaminophen 650 Mg Suppository CA 650 mg Q4H PRN Administration Headache/Fever/Mild Pain (1-3) Allopurinol 200 mg 07/05/20 09:00 07/23/20 10:58 Allopurinol 100 Mg Tab PO 200 mg DAILY [facility] Administration Ascorbic Acid 1,000 mg 07/05/20 09:00 07/23/20 10:56 Ascorbic Acid 500 Mg Chewable Tablet PO 1,000 mg DAILY [facility] Administration Aspirin 81 mg 07/05/20 09:00 07/23/20 10:55 Aspirin 81 Mg Enteric Coated Tablet PO 81 mg DAILY [facility] Administration Atorvastatin Calcium 10 mg 07/04/20 21:00 07/22/20 20:21 Atorvastatin Calcium 10 Mg Tab PO Not Given HS [facility] Bisacodyl 5 mg 07/04/20 10:58 07/16/20 06:27 Bisacodyl 5 Mg Tab PO 5 mg DAILY PRN Administration Constipation Carvedilol 6.25 mg 07/20/20 17:00 07/23/20 10:58 Carvedilol 6.25 Mg Tab PO 6.25 mg BID-[facility] Administration Cholecalciferol 1,000 units 07/05/20 09:00 07/23/20 10:56 Cholecalciferol 1,000 Units (25 Mcg) Tab PO 1,000 units DAILY [facility] Administration Clopidogrel Bisulfate 75 mg 07/05/20 09:00 07/23/20 10:55 Clopidogrel Bisulfate 75 Mg Tab PO 75 mg DAILY [facility] Administration Dexamethasone 6 mg 07/20/20 09:00 07/23/20 09:26 Dexamethasone 4 Mg/Ml Vial SLOW IVP 6 mg DAILY [facility] Administration Enoxaparin Sodium 40 mg 07/23/20 09:00 07/23/20 09:29 Enoxaparin Sodium 40 Mg/0.4 Ml Syringe SC Not Given 0900 [facility] Insulin Glargine 40 units/ 0.4 mls @ 0 mls/hr 07/21/20 09:00 07/23/20 09:30 Miscellaneous Medication SC Not Given [facility] Insulin Human Lispro 0 units 07/05/20 01:18 07/21/20 22:04 Humalog 300 Units/3 Ml Vial SC 3 unit .BEDTIME SLIDING SC PRN Administration Bedtime Correctional Scale Insulin Human Lispro 0 units 07/21/20 12:15 07/23/20 12:53 Humalog 300 Units/3 Ml Vial SC 6 unit .AGGRESSIVE SLIDING PRN Administration AGGRESSIVE SLIDING SCALE Protocol Levothyroxine Sodium 50 mcg 07/05/20 06:00 07/23/20 05:01 Levothyroxine Sodium 50 Mcg Tab PO Not Given 0600 [facility] Magnesium Oxide 250 mg 07/05/20 09:00 07/23/20 10:58 Magnesium Oxide 250 Mg Tab PO 250 mg DAILY [facility] Administration Nystatin 1 gm 07/04/20 10:59 07/20/20 09:45 Nystatin Powder 15 Gm Bot TOP 1 gm BID PRN Administration Topical Irritations Ondansetron HCl 4 mg 07/03/20 15:27 07/05/20 02:02 Ondansetron Pf 4 Mg/2 Ml Vial IVP 4 mg Q6H PRN Administration Nausea/Vomiting Pantoprazole Sodium 40 mg 07/05/20 09:00 07/23/20 10:58 Pantoprazole 40 Mg Tab PO 40 mg DAILY [facility] Administration Sodium Chloride 10 ml 07/06/20 09:00 07/23/20 09:31 Flush - Normal Saline 10 Ml Syringe IVF 10 ml Q12HR [facility] Administration Zinc Sulfate 220 mg 07/04/20 21:00 07/23/20 10:56 Zinc Sulfate 220 Mg Cap PO 220 mg BID [facility] Administration - Exam General Appearance: awake alert ENT: normocephalic atraumatic Neck: supple, no JVD Heart: RRR Respiratory: normal chest expansion, no tachypnea Neurological: cranial nerve grossly intact Hosp A/P - Plan This is a 69-year-old female blind patient on admission on account of pneumonia due to Covid. Covid was diagnosed on 07/02/2020 The patient is currently requiring high flow nasal cannula due to worsening oxygenation. Continue dexamethasone due to elevated inflammatory markers in the setting of COVID-19 infection. Chronic kidney disease stage IV currently stable. The patient with volume overload with heart failure with reduced action fraction with EF of 20%. Diuretics on hold as the patient is unable to take orally because she failed swallow evaluation. Continue ST. *The patient was cleared for modified diet by ST today. Hold IV diuretics as the patient is not able to take orally well yet. Pneumonia due to Covid Acute hypoxic respiratory failure Continue treatment as above. Urinary tract infection Physical deconditioning Blindness CKD Heart failure with reduced EF DVT prophylaxisLovenox CODE STATUSfull code
[2020-07-23] MEDS: Acetaminophen 325 MG TAB PO PRN (18:53)
[2020-07-23] MEDS: Atorvastatin Calcium 10 MG TAB PO SCH (21:27)
[2020-07-24 06:00] LABS: CRP (Inflammatory) 12.84 mg/dL (= or < 0.5); Magnesium 2.2 mg/dL (1.6-2.6)
[2020-07-24 06:02] LABS: Anion Gap 19 mmol/L (10-20); Calc. Creatinine Clearance 34 mL/min (70-130); Calcium 8.9 mg/dL (7.8-10.44); Carbon Dioxide 24 mmol/L (23-31); Chloride 110 mmol/L (98-107); Glucose 264 mg/dL (80-115); Potassium 4.6 mmol/L (3.5-5.1); Sodium 148 mmol/L (136-145)
[2020-07-24 06:14] LABS: BUN (Urea Nitrogen) 136 mg/dL (9.8-20.1)
[2020-07-24] MEDS: HumaLOG 300 UNITS/3 ML VIAL SC PRN ×3 (06:23→22:11)
[2020-07-24] MEDS: Levothyroxine Sodium 50 MCG TAB PO SCH (06:24)
[2020-07-24 06:27] LABS: Band 4 % (5-11); Hemoglobin 9.6 g/dL (12.0-16.0); Lymphocytes 2 % (21-51); MDiff Complete? YES; Mean Corpuscular HGB CONC 30.1 g/dL (32.0-36.0); Mean Corpuscular Hemoglobin 25.7 pg (27.0-31.0); Mean Corpuscular Volume 85.7 fL (78.0-98.0); Mean Platelet Volume 10.5 fL (7.4-10.4); Monocytes 4 % (0-10); Neutrophil 90 % (42-75); Platelet Count 71 thou/uL (130-400); Platelet Morphology Comment Appears Decreased; RBC Distribution Width 18.7 % (11.5-14.5); Red Blood Cell (RBC) Count 3.72 mill/uL (4.20-5.40); White Blood Cell (WBC) Count 4.8 thou/uL (4.8-10.8)
--- NOTE | 2020-07-24 08:44 | PRG ---
DATE OF SERVICE: 07/24/2020 SUBJECTIVE: Patient in COVID isolation. OBJECTIVE: VITAL SIGNS: Temperature 93, pulse 80, respiratory rate 15, blood pressure 125/82 . LABORATORY DATA: Sodium 140, potassium 4.6, BUN is 136, creatinine is 3.2. ASSESSMENT AND PLAN: 1. Acute kidney injury on chronic kidney disease stage 4 with worsening labs. No acute indication for dialysis. 2. Fluid overload. Lasix on hold because of the worsening renal labs. Check chest x-ray today. 3. Elevated BUN. 4. Cardiorenal syndrome. 5. Morbid obesity. 6. Hypernatremia. We will monitor. 7. COVID-19 infection. 8. Acute hypoxic respiratory failure. 9. Prognosis poor. No acute indication for dialysis. We will recheck x-ray today. Monitor labs. We will continue to follow. Job ID: [id number]
[2020-07-24] MEDS: Carvedilol 6.25 MG TAB PO SCH ×2 (10:07→16:21)
[2020-07-24] MEDS: Aspirin 81 mg Enteric Coated Tablet PO SCH (10:07)
[2020-07-24] MEDS: Magnesium Oxide 250 MG TAB PO SCH (10:07)
[2020-07-24] MEDS: Ascorbic Acid 500 mg Chewable Tablet PO SCH (10:07)
[2020-07-24] MEDS: Cholecalciferol 1,000 UNITS (25 MCG) TAB PO SCH (10:08)
[2020-07-24] MEDS: Zinc Sulfate 220 MG CAP PO SCH ×2 (10:08→21:00)
[2020-07-24] MEDS: Clopidogrel Bisulfate 75 MG TAB PO SCH (10:08)
[2020-07-24] MEDS: Allopurinol 100 MG TAB PO SCH (10:08)
[2020-07-24] MEDS: Dexamethasone 4 mg/ml Vial SLOW IVP SCH (10:09)
[2020-07-24] MEDS: Insulin Glargine 40 UNITS in Pre-Filled Syringe 1 EACH SC SCH (10:10)
[2020-07-24] MEDS ORDERED: Enoxaparin Sodium 30 MG/0.3 ML SYRINGE SC SCH (10:15)
[2020-07-24] MEDS: Enoxaparin Sodium 40 MG/0.4 ML SYRINGE SC SCH (10:23)
--- NOTE | 2020-07-24 11:31 | RAD ---
SINGLE VIEW OF THE CHEST: COMPARISON: 07/20/2020. HISTORY: Fluid overload. FINDINGS: A single view of the chest shows an enlarged cardiomediastinal silhouette. However, the heart is sma ller than it was on the prior exam. Diffuse increased interstitial lung markings are present. There appear to be superimposed multifocal areas of airspace opacity in the lungs. No pleural effusion is seen. IMPRESSION: 1. Cardiomegaly. 2. Multifocal opacities in the lungs. This could be secondary to fluid overload, but multifocal inf iltrates are also a possibility. POS: JERSEYA
--- NOTE | 2020-07-24 16:00 | PDOC.HOSPP ---
- Subjective Encounter Date: 07/24/20 Subjective: The patient is tolerating more oral intake today. Her oxygenation, however, is not improving. - Objective Vital Signs & Weight: Vital Signs (12 hours) Temp Pulse Resp BP Pulse Ox Pulse Ox Pulse Ox 07/24/20 14:53 94 L 95 07/24/20 11:15 98.8 F 80 20 134/61 95 07/24/20 09:40 99.4 F 82 22 H 141/82 H 98 Weight Admit Weight 305 lb 9.6 oz Weight 281 lb 14.4 oz I&O: 07/23/20 07/24/20 07/25/20 06:59 06:59 06:59 Intake Total 500 150 Output Total 400 Balance 500 -250 Result Diagrams: 07/24/20 05:17 07/24/20 05:17 Additional Labs: Accuchecks 07/24/20 07/23/20 07/23/20 10:29 20:04 16:37 POC Glucose 252 H 276 H 273 H Hospitalist ROS - Medication Medications: Active Medications Generic Name Dose Route Start Last Admin Trade Name Freq PRN Reason Stop Dose Admin Acetaminophen 650 mg 07/03/20 15:27 07/23/20 18:53 Acetaminophen 325 Mg Tab PO 650 mg Q4H PRN Administration Headache/Fever/Mild Pain (1-3) Acetaminophen 650 mg 07/03/20 15:27 07/22/20 23:59 Acetaminophen 650 Mg Suppository [place] 650 mg Q4H PRN Administration Headache/Fever/Mild Pain (1-3) Allopurinol 200 mg 07/05/20 09:00 07/24/20 10:08 Allopurinol 100 Mg Tab PO 200 mg DAILY [facility] Administration Ascorbic Acid 1,000 mg 07/05/20 09:00 07/24/20 10:07 Ascorbic Acid 500 Mg Chewable Tablet PO 1,000 mg DAILY [facility] Administration Aspirin 81 mg 07/05/20 09:00 07/24/20 10:07 Aspirin 81 Mg Enteric Coated Tablet PO 81 mg DAILY [facility] Administration Atorvastatin Calcium 10 mg 07/04/20 21:00 07/23/20 21:27 Atorvastatin Calcium 10 Mg Tab PO 10 mg HS [facility] Administration Bisacodyl 5 mg 07/04/20 10:58 07/16/20 06:27 Bisacodyl 5 Mg Tab PO 5 mg DAILY PRN Administration Constipation Carvedilol 6.25 mg 07/20/20 17:00 07/24/20 10:07 Carvedilol 6.25 Mg Tab PO 6.25 mg BID-WM [facility] Administration Cholecalciferol 1,000 units 07/05/20 09:00 07/24/20 10:08 Cholecalciferol 1,000 Units (25 Mcg) Tab PO 1,000 units DAILY [facility] Administration Clopidogrel Bisulfate 75 mg 07/05/20 09:00 07/24/20 10:08 Clopidogrel Bisulfate 75 Mg Tab PO 75 mg DAILY [facility] Administration Dexamethasone 6 mg 07/20/20 09:00 07/24/20 10:09 Dexamethasone 4 Mg/Ml Vial SLOW IVP 6 mg DAILY [facility] Administration Insulin Glargine 40 units/ 0.4 mls @ 0 mls/hr 07/21/20 09:00 07/24/20 10:10 Miscellaneous Medication SC Not Given QAM [facility] Insulin Human Lispro 0 units 07/05/20 01:18 07/23/20 21:28 Humalog 300 Units/3 Ml Vial SC 3 unit .BEDTIME SLIDING SC PRN Administration Bedtime Correctional Scale Insulin Human Lispro 0 units 07/21/20 12:15 07/24/20 12:38 Humalog 300 Units/3 Ml Vial SC 9 unit .AGGRESSIVE SLIDING PRN Administration AGGRESSIVE SLIDING SCALE Protocol Levothyroxine Sodium 50 mcg 07/05/20 06:00 07/24/20 06:24 Levothyroxine Sodium 50 Mcg Tab PO 50 mcg 0600 [facility] Administration Magnesium Oxide 250 mg 07/05/20 09:00 07/24/20 10:07 Magnesium Oxide 250 Mg Tab PO 250 mg DAILY [facility] Administration Nystatin 1 gm 07/04/20 10:59 07/20/20 09:45 Nystatin Powder 15 Gm Bot TOP 1 gm BID PRN Administration Topical Irritations Ondansetron HCl 4 mg 07/03/20 15:27 07/05/20 02:02 Ondansetron Pf 4 Mg/2 Ml Vial IVP 4 mg Q6H PRN Administration Nausea/Vomiting Pantoprazole Sodium 40 mg 07/05/20 09:00 07/24/20 10:08 Pantoprazole 40 Mg Tab PO 40 mg DAILY [facility] Administration Sodium Chloride 10 ml 07/06/20 09:00 07/24/20 10:09 Flush - Normal Saline 10 Ml Syringe IVF 10 ml Q12HR [facility] Administration Zinc Sulfate 220 mg 07/04/20 21:00 07/24/20 10:08 Zinc Sulfate 220 Mg Cap PO 220 mg BID [facility] Administration - Exam General Appearance: awake alert ENT: normocephalic atraumatic Neck: supple, no JVD Heart: RRR Respiratory: normal chest expansion, no tachypnea, rhonchi Extremities: no cyanosis Neurological: cranial nerve grossly intact Hosp A/P - Plan This is a 69-year-old female blind patient on admission on account of pneumonia due to Covid. Covid was diagnosed on 07/02/2020 The patient is currently requiring high flow nasal cannula due to worsening oxygenation. Continue dexamethasone due to elevated inflammatory markers in the setting of COVID-19 infection. Chronic kidney disease worsening due to poor oral intake. Gentle hydration initated. The patient with heart failure with reduced action fraction with EF of 20%. Diuretics on hold. The patient was cleared for modified diet by ST. Acute hypoxic respiratory failure Continue treatment as above. Urinary tract infection Physical deconditioning Blindness CKD Heart failure with reduced EF DVT prophylaxisLovenox CODE STATUSfull code
[2020-07-24] MEDS ORDERED: Sodium Chloride 0.9% 1,000 ML IV SCH ×2 (16:15→16:28)
[2020-07-24] MEDS: Atorvastatin Calcium 10 MG TAB PO SCH (21:00)
[2020-07-25] MEDS: Levothyroxine Sodium 50 MCG TAB PO SCH (05:07)
[2020-07-25 05:39] LABS: Anion Gap 22 mmol/L (10-20); Calc. Creatinine Clearance 37 mL/min (70-130); Calcium 8.8 mg/dL (7.8-10.44); Carbon Dioxide 20 mmol/L (23-31); Chloride 111 mmol/L (98-107); Glucose 394 mg/dL (80-115); Potassium 4.2 mmol/L (3.5-5.1); Sodium 149 mmol/L (136-145)
[2020-07-25 05:51] LABS: BUN (Urea Nitrogen) 136 mg/dL (9.8-20.1)
[2020-07-25 06:31] LABS: Anisocytosis MODERATE=16-30 cells (100X) (0-5/hpf); Band 20 % (5-11); Hemoglobin 10.8 g/dL (12.0-16.0); Lymphocytes 2 % (21-51); MDiff Complete? YES; Mean Corpuscular HGB CONC 30.4 g/dL (32.0-36.0); Mean Corpuscular Hemoglobin 26.1 pg (27.0-31.0); Mean Corpuscular Volume 85.9 fL (78.0-98.0); Mean Platelet Volume 13.3 fL (7.4-10.4); Monocytes 6 % (0-10); Neutrophil 72 % (42-75); Platelet Count 67 thou/uL (130-400); Platelet Morphology Comment Appears Decreased; RBC Distribution Width 18.8 % (11.5-14.5); Red Blood Cell (RBC) Count 4.15 mill/uL (4.20-5.40); White Blood Cell (WBC) Count 4.1 thou/uL (4.8-10.8)
[2020-07-25] MEDS: HumaLOG 300 UNITS/3 ML VIAL SC PRN ×3 (06:44→22:02)
[2020-07-25] MEDS: Sodium Chloride 0.45% 1,000 ML IV SCH (09:58)
[2020-07-25] MEDS: Aspirin 81 mg Enteric Coated Tablet PO SCH (09:58)
[2020-07-25] MEDS: Clopidogrel Bisulfate 75 MG TAB PO SCH (09:58)
[2020-07-25] MEDS: Carvedilol 6.25 MG TAB PO SCH ×2 (09:59→17:25)
[2020-07-25] MEDS: Cholecalciferol 1,000 UNITS (25 MCG) TAB PO SCH (09:59)
[2020-07-25] MEDS: Allopurinol 100 MG TAB PO SCH (09:59)
[2020-07-25] MEDS: Zinc Sulfate 220 MG CAP PO SCH ×2 (09:59→20:54)
[2020-07-25] MEDS: Ascorbic Acid 500 mg Chewable Tablet PO SCH (09:59)
[2020-07-25] MEDS: Dexamethasone 4 mg/ml Vial SLOW IVP SCH (10:00)
[2020-07-25] MEDS: Enoxaparin Sodium 30 MG/0.3 ML SYRINGE SC SCH (10:00)
[2020-07-25] MEDS: Magnesium Oxide 250 MG TAB PO SCH (10:04)
[2020-07-25] MEDS: Insulin Glargine 40 UNITS in Pre-Filled Syringe 1 EACH SC SCH (10:05)
--- NOTE | 2020-07-25 11:33 | PRG ---
DATE OF SERVICE: 07/25/2020 SUBJECTIVE: The patient is in COVID isolation. OBJECTIVE: VITAL SIGNS: Temperature 96, pulse 85, respiratory rate 18, blood pressure 134/60. LABORATORY DATA: Potassium 4.2, sodium 149, BUN is 136, creatinine is 2.9. ASSESSMENT AND PLAN: 1. Acute kidney injury on chronic kidney stage 4, renal function with slight improvement. 2. Elevated BUN with azotemia. 3. Fluid overload better. 4. The patient currently on IV fluids. 5. Hypernatremia with hyperchloremia. 6. Acidosis. Continue on half NS. We will change fluids to half NS. 7. COVID-19 infection. 8. Acute hypoxic respiratory failure. Plan is to continue half NS at 50 mL/hour. Renal function with slight improvement. We will continue to monitor. Prognosis remains poor. We will follow. Job ID: [id number]
[2020-07-25 12:26] LABS: Hemoglobin 10.9 g/dL (12.0-16.0); Platelet Count 70 thou/uL (130-400)
--- NOTE | 2020-07-25 15:02 | PDOC.HOSPP ---
- Subjective Subjective: Pt was seen and examined. still remains on HIFlow, Cr is trending down slightly. no fever - Objective Vital Signs & Weight: Vital Signs (12 hours) Temp Pulse Resp BP Pulse Ox 07/25/20 13:30 98.4 F 81 24 H 115/55 L 95 07/25/20 10:23 98.6 F 85 20 135/60 94 L 07/25/20 05:10 97.9 F 84 18 144/65 H 98 07/25/20 03:30 94 L Weight Admit Weight 305 lb 9.6 oz Weight 281 lb 14.4 oz I&O: 07/24/20 07/25/20 07/26/20 06:59 06:59 06:59 Intake Total 150 320 Output Total 400 1350 350 Balance -250 -1030 -350 Result Diagrams: 07/25/20 12:16 07/25/20 10:48 Additional Labs: Accuchecks 07/25/20 07/25/20 07/24/20 10:15 06:53 20:41 POC Glucose 350 H 389 H 249 H 07/24/20 17:09 POC Glucose 211 H Hospitalist ROS - Medication Medications: Active Medications Generic Name Dose Route Start Last Admin Trade Name Freq PRN Reason Stop Dose Admin Acetaminophen 650 mg 07/03/20 15:27 07/23/20 18:53 Acetaminophen 325 Mg Tab PO 650 mg Q4H PRN Administration Headache/Fever/Mild Pain (1-3) Acetaminophen 650 mg 07/03/20 15:27 07/22/20 23:59 Acetaminophen 650 Mg Suppository [place] 650 mg Q4H PRN Administration Headache/Fever/Mild Pain (1-3) Allopurinol 200 mg 07/05/20 09:00 07/25/20 09:59 Allopurinol 100 Mg Tab PO 200 mg DAILY [facility] Administration Ascorbic Acid 1,000 mg 07/05/20 09:00 07/25/20 09:59 Ascorbic Acid 500 Mg Chewable Tablet PO 1,000 mg DAILY [facility] Administration Aspirin 81 mg 07/05/20 09:00 07/25/20 09:58 Aspirin 81 Mg Enteric Coated Tablet PO 81 mg DAILY [facility] Administration Atorvastatin Calcium 10 mg 07/04/20 21:00 07/24/20 21:00 Atorvastatin Calcium 10 Mg Tab PO 10 mg HS [facility] Administration Bisacodyl 5 mg 07/04/20 10:58 07/16/20 06:27 Bisacodyl 5 Mg Tab PO 5 mg DAILY PRN Administration Constipation Carvedilol 6.25 mg 07/20/20 17:00 07/25/20 09:59 Carvedilol 6.25 Mg Tab PO 6.25 mg BID-WM [facility] Administration Cholecalciferol 1,000 units 07/05/20 09:00 07/25/20 09:59 Cholecalciferol 1,000 Units (25 Mcg) Tab PO 1,000 units DAILY [facility] Administration Clopidogrel Bisulfate 75 mg 07/05/20 09:00 07/25/20 09:58 Clopidogrel Bisulfate 75 Mg Tab PO 75 mg DAILY [facility] Administration Dexamethasone 6 mg 07/20/20 09:00 07/25/20 10:00 Dexamethasone 4 Mg/Ml Vial SLOW IVP 6 mg DAILY [facility] Administration Enoxaparin Sodium 30 mg 07/25/20 09:00 07/25/20 10:00 Enoxaparin Sodium 30 Mg/0.3 Ml Syringe SC 30 mg 0900 [facility] Administration Insulin Glargine 40 units/ 0.4 mls @ 0 mls/hr 07/21/20 09:00 07/25/20 10:05 Miscellaneous Medication SC 0.4 mls QAM [facility] Administration Sodium Chloride 1,000 mls @ 50 mls/hr 07/25/20 09:15 07/25/20 09:58 1/2 Normal Saline IV 1,000 mls .Q20H [facility] Administration Insulin Human Lispro 0 units 07/05/20 01:18 07/24/20 22:11 Humalog 300 Units/3 Ml Vial SC 2 unit .BEDTIME SLIDING SC PRN Administration Bedtime Correctional Scale Insulin Human Lispro 0 units 07/21/20 12:15 07/25/20 06:44 Humalog 300 Units/3 Ml Vial SC 13 unit .AGGRESSIVE SLIDING PRN Administration AGGRESSIVE SLIDING SCALE Protocol Levothyroxine Sodium 50 mcg 07/05/20 06:00 07/25/20 05:07 Levothyroxine Sodium 50 Mcg Tab PO 50 mcg 0600 [facility] Administration Magnesium Oxide 250 mg 07/05/20 09:00 07/25/20 10:04 Magnesium Oxide 250 Mg Tab PO 250 mg DAILY [facility] Administration Nystatin 1 gm 07/04/20 10:59 07/20/20 09:45 Nystatin Powder 15 Gm Bot TOP 1 gm BID PRN Administration Topical Irritations Ondansetron HCl 4 mg 07/03/20 15:27 07/05/20 02:02 Ondansetron Pf 4 Mg/2 Ml Vial IVP 4 mg Q6H PRN Administration Nausea/Vomiting Pantoprazole Sodium 40 mg 07/05/20 09:00 07/25/20 09:59 Pantoprazole 40 Mg Tab PO 40 mg DAILY [facility] Administration Sodium Chloride 10 ml 07/06/20 09:00 07/25/20 10:02 Flush - Normal Saline 10 Ml Syringe IVF 10 ml Q12HR [facility] Administration Zinc Sulfate 220 mg 07/04/20 21:00 07/25/20 09:59 Zinc Sulfate 220 Mg Cap PO 220 mg BID [facility] Administration - Exam General Appearance: NAD Eye: PERRL, anicteric sclera ENT: no oropharyngeal lesions, moist mucosa Neck: supple, symmetric, no JVD, no thyromegaly Heart: RRR, no gallops, no rubs, normal peripheral pulses Respiratory: rhonchi Gastrointestinal: soft, non-tender, non-distended, normal bowel sounds, no palpable masses, no hepatomegaly, no splenomegaly, no bruit Extremities: 1+ LE edema Skin: normal turgor, no lesions, no rashes Musculoskeletal: generalized weakness Psychiatric: normal affect, normal behavior, A&O x 3 Hosp A/P - Plan The patient is unfortunate 69 years old -[place] female who has significant past medical histories of diabetes type 2, CKD, hypertension, CAD who was sent from inpatient rehab facility for short of breath and hypoxia. Acute hypoxic respiratory failure secondary to COVID-19 pneumonia --Status post convalescent plasma, continue Decadron. O2 support, wean as tolerated --Appreciate input from ID COVID-19 pneumonia --Management as above Acute on CKD stage IV --Continue gentle IV fluid hydration as per nephrology VRE UTI --Discussed with ID, likely due to colonization. Monitor CAD --cont dual antiplatelet therapy, beta-kathleen Diabetes type 2 --cont Lantus, ISS. Monitor BG Hypothyroidism --cont Levothyroxin Legally Blind --supportive cares DVT ppx: Renal dose Lovenox GI ppx: PPI Code Status: Full code Anticipated Dispo: Likely back rehab when medically ready
[2020-07-25] MEDS: Atorvastatin Calcium 10 MG TAB PO SCH (20:54)
[2020-07-26 02:33] LABS: Phosphorus 3.3 mg/dL (2.3-4.7)
[2020-07-26 02:39] LABS: Band 23 % (5-11); Hemoglobin 10.5 g/dL (12.0-16.0); Lymphocytes 8 % (21-51); MDiff Complete? YES; Mean Corpuscular HGB CONC 30.1 g/dL (32.0-36.0); Mean Corpuscular Hemoglobin 26.2 pg (27.0-31.0); Mean Platelet Volume 11.9 fL (7.4-10.4); Monocytes 5 % (0-10); Neutrophil 64 % (42-75); Platelet Count 78 thou/uL (130-400); Platelet Morphology Comment Appears Decreased; Red Blood Cell (RBC) Count 4.02 mill/uL (4.20-5.40); Toxic Granulation SLIGHT; White Blood Cell (WBC) Count 3.7 thou/uL (4.8-10.8)
[2020-07-26 02:52] LABS: Anion Gap 18 mmol/L (10-20); Calc. Creatinine Clearance 40 mL/min (70-130); Calcium 8.8 mg/dL (7.8-10.44); Carbon Dioxide 22 mmol/L (23-31); Chloride 114 mmol/L (98-107); Glucose 308 mg/dL (80-115); Potassium 3.4 mmol/L (3.5-5.1); Sodium 151 mmol/L (136-145)
[2020-07-26 03:05] LABS: BUN (Urea Nitrogen) 139 mg/dL (9.8-20.1)
[2020-07-26] MEDS: Potassium Chloride 20 MEQ TAB PO SCH ×2 (03:57→04:15)
[2020-07-26] MEDS: Levothyroxine Sodium 50 MCG TAB PO SCH (05:01)
[2020-07-26] MEDS: Potassium Chloride 20 MEQ in Premix Bag 1 BAG IVPB SCH ×2 (05:48→11:15)
[2020-07-26] MEDS: HumaLOG 300 UNITS/3 ML VIAL SC PRN ×2 (06:43→21:35)
[2020-07-26] MEDS: Cholecalciferol 1,000 UNITS (25 MCG) TAB PO SCH (07:27)
[2020-07-26] MEDS: Aspirin 81 mg Enteric Coated Tablet PO SCH (07:27)
[2020-07-26] MEDS: Carvedilol 6.25 MG TAB PO SCH ×2 (07:27→17:35)
[2020-07-26] MEDS: Allopurinol 100 MG TAB PO SCH (07:27)
[2020-07-26] MEDS: Ascorbic Acid 500 mg Chewable Tablet PO SCH (07:27)
[2020-07-26] MEDS: Zinc Sulfate 220 MG CAP PO SCH ×2 (07:28→19:40)
[2020-07-26] MEDS: Clopidogrel Bisulfate 75 MG TAB PO SCH (07:28)
[2020-07-26] MEDS: Magnesium Oxide 250 MG TAB PO SCH (07:28)
[2020-07-26] MEDS: Enoxaparin Sodium 30 MG/0.3 ML SYRINGE SC SCH (07:49)
[2020-07-26] MEDS: Dexamethasone 4 mg/ml Vial SLOW IVP SCH (07:49)
[2020-07-26] MEDS: Sodium Chloride 0.45% 1,000 ML IV SCH (08:14)
[2020-07-26] MEDS: Insulin Glargine 40 UNITS in Pre-Filled Syringe 1 EACH SC SCH (10:45)
[2020-07-26] MEDS: Dextrose 5% in Water 1,000 ML IV SCH (14:20)
--- NOTE | 2020-07-26 14:47 | PRG ---
DATE OF SERVICE: 07/26/2020 SUBJECTIVE: The patient is in COVID isolation. OBJECTIVE: VITAL SIGNS: Temperature 98.3, pulse 87, respiratory rate 20, blood pressure 120/50. LABORATORY DATA: Potassium 3.4, sodium 151, BUN is 139, and creatinine is 2.7. ASSESSMENT AND PLAN: 1. Acute kidney injury on chronic kidney disease stage 4, creatinine with improvement. 2. Azotemia, most likely elevated BUN, most likely secondary to steroids. Recommend reducing dose if possible, but unfortunately with COVID infection not under control, she might need steroids. 3. Hypernatremia. Agree with D5 water. 4. Hypokalemia, replace. 5. Hyperchloremia. 6. Hyperglycemia, management per primary team. 7. COVID-19 infection. 8. Acute hypoxic respiratory failure. Prognosis is guarded. Creatinine is better, but BUN remains elevated, most likely from steroids. Agree with free water for hypernatremia. Prognosis remains guarded. No acute indication for dialysis. We will follow. Job ID: [id number]
--- NOTE | 2020-07-26 16:05 | PDOC.HOSPP ---
- Subjective Subjective: Patient was seen examined at bedside. Patient still quite lethargic. She has been not eating much. I have called and update her son and daughters on the phone. Like to continue with aggressive care. I also discussed with her CODE STATUS, they would like to continue with full code for the time being. - Objective Vital Signs & Weight: Vital Signs (12 hours) Temp Pulse Resp BP Pulse Ox 07/26/20 11:15 98.3 F 87 24 H 121/58 L 93 L 07/26/20 08:00 97.4 F L 87 24 H 131/60 93 L 07/26/20 04:41 94 L Weight Admit Weight 305 lb 9.6 oz Weight 281 lb 11.2 oz I&O: 07/25/20 07/26/20 07/27/20 06:59 06:59 06:59 Intake Total 320 1592 Output Total 1350 1100 Balance -1030 492 Result Diagrams: 07/26/20 02:00 07/26/20 02:00 Additional Labs: Accuchecks 07/26/20 07/26/20 07/25/20 11:14 06:40 20:58 POC Glucose 282 H 272 H 377 H 07/25/20 17:29 POC Glucose 323 H Radiology Reviewed by me: Yes EKG Reviewed by me: Yes Hospitalist ROS - Medication Medications: Active Medications Generic Name Dose Route Start Last Admin Trade Name Freq PRN Reason Stop Dose Admin Acetaminophen 650 mg 07/03/20 15:27 07/23/20 18:53 Acetaminophen 325 Mg Tab PO 650 mg Q4H PRN Administration Headache/Fever/Mild Pain (1-3) Acetaminophen 650 mg 07/03/20 15:27 07/22/20 23:59 Acetaminophen 650 Mg Suppository [place] 650 mg Q4H PRN Administration Headache/Fever/Mild Pain (1-3) Allopurinol 200 mg 07/05/20 09:00 07/26/20 07:27 Allopurinol 100 Mg Tab PO Not Given DAILY [facility] Ascorbic Acid 1,000 mg 07/05/20 09:00 07/26/20 07:27 Ascorbic Acid 500 Mg Chewable Tablet PO Not Given DAILY [facility] Aspirin 81 mg 07/05/20 09:00 07/26/20 07:27 Aspirin 81 Mg Enteric Coated Tablet PO Not Given DAILY [facility] Atorvastatin Calcium 10 mg 07/04/20 21:00 07/25/20 20:54 Atorvastatin Calcium 10 Mg Tab PO 10 mg HS [facility] Administration Bisacodyl 5 mg 07/04/20 10:58 07/16/20 06:27 Bisacodyl 5 Mg Tab PO 5 mg DAILY PRN Administration Constipation Carvedilol 6.25 mg 07/20/20 17:00 07/26/20 07:27 Carvedilol 6.25 Mg Tab PO Not Given BID-WM [facility] Cholecalciferol 1,000 units 07/05/20 09:00 07/26/20 07:27 Cholecalciferol 1,000 Units (25 Mcg) Tab PO Not Given DAILY [facility] Clopidogrel Bisulfate 75 mg 07/05/20 09:00 07/26/20 07:28 Clopidogrel Bisulfate 75 Mg Tab PO Not Given DAILY [facility] Dexamethasone 6 mg 07/20/20 09:00 07/26/20 07:49 Dexamethasone 4 Mg/Ml Vial SLOW IVP 6 mg DAILY [facility] Administration Enoxaparin Sodium 30 mg 07/25/20 09:00 07/26/20 07:49 Enoxaparin Sodium 30 Mg/0.3 Ml Syringe SC 30 mg 0900 [facility] Administration Insulin Glargine 40 units/ 0.4 mls @ 0 mls/hr 07/21/20 09:00 07/26/20 10:45 Miscellaneous Medication SC Not Given QAM [facility] Dextrose/Water 1,000 mls @ 50 mls/hr 07/26/20 11:45 07/26/20 14:20 D5w IV 1,000 mls .Q20H [facility] Administration Insulin Human Lispro 0 units 07/05/20 01:18 07/25/20 22:02 Humalog 300 Units/3 Ml Vial SC 5 unit .BEDTIME SLIDING SC PRN Administration Bedtime Correctional Scale Insulin Human Lispro 0 units 07/21/20 12:15 07/26/20 06:43 Humalog 300 Units/3 Ml Vial SC 9 unit .AGGRESSIVE SLIDING PRN Administration AGGRESSIVE SLIDING SCALE Protocol Levothyroxine Sodium 50 mcg 07/05/20 06:00 07/26/20 05:01 Levothyroxine Sodium 50 Mcg Tab PO Not Given 0600 [facility] Magnesium Oxide 250 mg 07/05/20 09:00 07/26/20 07:28 Magnesium Oxide 250 Mg Tab PO Not Given DAILY [facility] Nystatin 1 gm 07/04/20 10:59 07/20/20 09:45 Nystatin Powder 15 Gm Bot TOP 1 gm BID PRN Administration Topical Irritations Ondansetron HCl 4 mg 07/03/20 15:27 07/05/20 02:02 Ondansetron Pf 4 Mg/2 Ml Vial IVP 4 mg Q6H PRN Administration Nausea/Vomiting Pantoprazole Sodium 40 mg 07/05/20 09:00 07/26/20 07:28 Pantoprazole 40 Mg Tab PO Not Given DAILY [facility] Sodium Chloride 10 ml 07/06/20 09:00 07/26/20 10:45 Flush - Normal Saline 10 Ml Syringe IVF Not Given Q12HR [facility] Zinc Sulfate 220 mg 07/04/20 21:00 07/26/20 07:28 Zinc Sulfate 220 Mg Cap PO Not Given BID [facility] - Exam General Appearance: NAD Eye: PERRL ENT: normocephalic atraumatic Neck: supple Heart: RRR Respiratory: rhonchi Gastrointestinal: soft Extremities: no cyanosis Skin: normal turgor Neurological: cranial nerve grossly intact Musculoskeletal: normal tone Psychiatric: normal affect, normal behavior, A&O x 3 Hosp A/P - Plan The patient is unfortunate 69 years old -[place] female who has significant past medical histories of diabetes type 2, CKD, hypertension, CAD who was sent from inpatient rehab facility for short of breath and hypoxia. Acute hypoxic respiratory failure secondary to COVID-19 pneumonia --Status post convalescent plasma, continue Decadron. O2 support, wean as tolerated --Appreciate input from ID. I have discussed the code status again with pt and family, cont full code for now COVID-19 pneumonia --Management as above Acute on CKD stage IV --Continue gentle IV fluid hydration as per nephrology Hypernatremia --will change IVF to D5, follow BMP VRE UTI --Discussed with ID, likely due to colonization. Monitor CAD --cont dual antiplatelet therapy, beta-kathleen Diabetes type 2 --cont Lantus, ISS. Monitor BG Hypothyroidism --cont Levothyroxin Legally Blind --supportive cares DVT ppx: Renal dose Lovenox GI ppx: PPI Code Status: Full code Anticipated Dispo: Likely back rehab when medically ready
[2020-07-26] MEDS: Atorvastatin Calcium 10 MG TAB PO SCH (19:37)
[2020-07-27] MEDS: Levothyroxine Sodium 50 MCG TAB PO SCH (05:44)
[2020-07-27] MEDS: HumaLOG 300 UNITS/3 ML VIAL SC PRN (06:44)
[2020-07-27 07:00] LABS: Anion Gap 19 mmol/L (10-20); CRP (Inflammatory) 19.72 mg/dL (= or < 0.5); Calc. Creatinine Clearance 44 mL/min (70-130); Calcium 8.4 mg/dL (7.8-10.44); Carbon Dioxide 19 mmol/L (23-31); Chloride 114 mmol/L (98-107); Glucose 448 mg/dL (80-115); Potassium 4.3 mmol/L (3.5-5.1); Sodium 148 mmol/L (136-145)
[2020-07-27 07:13] LABS: BUN (Urea Nitrogen) 133 mg/dL (9.8-20.1)
[2020-07-27] MEDS: Ascorbic Acid 500 mg Chewable Tablet PO SCH (07:55)
[2020-07-27] MEDS: Allopurinol 100 MG TAB PO SCH (07:55)
[2020-07-27] MEDS: Carvedilol 6.25 MG TAB PO SCH ×2 (07:55→15:44)
[2020-07-27] MEDS: Cholecalciferol 1,000 UNITS (25 MCG) TAB PO SCH (07:56)
[2020-07-27] MEDS: Magnesium Oxide 250 MG TAB PO SCH (07:56)
[2020-07-27] MEDS: Clopidogrel Bisulfate 75 MG TAB PO SCH (07:56)
[2020-07-27] MEDS: Aspirin 81 mg Enteric Coated Tablet PO SCH (07:56)
[2020-07-27] MEDS: Zinc Sulfate 220 MG CAP PO SCH ×2 (07:56→21:04)
[2020-07-27] MEDS: Enoxaparin Sodium 30 MG/0.3 ML SYRINGE SC SCH (07:57)
[2020-07-27] MEDS: Dexamethasone 4 mg/ml Vial SLOW IVP SCH (07:57)
[2020-07-27] MEDS: Insulin Glargine 40 UNITS in Pre-Filled Syringe 1 EACH SC SCH (07:57)
[2020-07-27] MEDS: Dextrose 5% in Water 1,000 ML IV SCH (08:04)
[2020-07-27 10:37] LABS: Anisocytosis SLIGHT = 6-15 cells (100X) (0-5/hpf); Band 17 % (5-11); Elliptocytes SLIGHT = 2-5 cells (100X) (0-1/hpf); Hemoglobin 10.3 g/dL (12.0-16.0); Hypochromia SLIGHT = 6-15 cells (100X) (0-5/hpf); Lymphocytes 2 % (21-51); MDiff Complete? YES; Mean Corpuscular HGB CONC 30.1 g/dL (32.0-36.0); Mean Corpuscular Hemoglobin 26.2 pg (27.0-31.0); Mean Corpuscular Volume 87.1 fL (78.0-98.0); Monocytes 1 % (0-10); Neutrophil 80 % (42-75); Nucleated RBC 2 % (0); Platelet Count 65 thou/uL (130-400); Platelet Morphology Comment Appears Decreased; Red Blood Cell (RBC) Count 3.93 mill/uL (4.20-5.40); White Blood Cell (WBC) Count 3.2 thou/uL (4.8-10.8)
--- NOTE | 2020-07-27 11:05 | PRG ---
DATE OF SERVICE: 07/27/2020 SUBJECTIVE: The patient on COVID isolation. OBJECTIVE: VITAL SIGNS: Temperature 97.5, pulse 89, respiratory rate 18, and blood pressure 143/60. LABORATORY DATA: Potassium 4.3, sodium 148, BUN is 133, and creatinine is 2.5. ASSESSMENT AND PLAN: 1. Acute kidney injury on chronic kidney disease, stage 4. Creatinine is stable. 2. Azotemia. BUN seems to be stable. 3. Hypernatremia, better. Continue free water. 4. Hypokalemia, replace. 5. COVID-19 infection. 6. Acute hypoxic respiratory failure. 7. Hyperglycemia. Continue D5 water with 3 amps of bicarb. Acidosis slightly worse. We will continue to monitor. Long-term prognosis poor. Job ID: [id number]
[2020-07-27] MEDS: Insulin Regular 300 UNITS/3 ML VIAL SC PRN ×2 (11:24→18:26)
--- NOTE | 2020-07-27 15:02 | PDOC.HOSPP ---
- Subjective Subjective: Patient was seen examined at bedside. Her sodium is better. However, she is getting a little more acidotic. Her fluid have been adjusted by nephrology. Patient remained n.p.o. As recommended by speech therapist. - Objective Vital Signs & Weight: Vital Signs (12 hours) Temp Pulse Resp BP Pulse Ox 07/27/20 11:44 98.5 F 89 29 H 108/55 L 96 07/27/20 08:15 97.5 F L 89 24 H 143/60 H 94 L 07/27/20 04:00 87 24 H 135/60 97 Weight Admit Weight 305 lb 9.6 oz Weight 281 lb 11.2 oz I&O: 07/26/20 07/27/20 07/28/20 06:59 06:59 06:59 Intake Total 1592 1200 Output Total 1100 400 Balance 492 800 Result Diagrams: 07/27/20 09:18 07/27/20 06:39 Additional Labs: Accuchecks 07/27/20 07/27/20 07/26/20 11:03 06:37 20:23 POC Glucose 330 H 404 H 376 H 07/26/20 17:11 POC Glucose 330 H Hospitalist ROS - Medication Medications: Active Medications Generic Name Dose Route Start Last Admin Trade Name Freq PRN Reason Stop Dose Admin Acetaminophen 650 mg 07/03/20 15:27 07/23/20 18:53 Acetaminophen 325 Mg Tab PO 650 mg Q4H PRN Administration Headache/Fever/Mild Pain (1-3) Acetaminophen 650 mg 07/03/20 15:27 07/22/20 23:59 Acetaminophen 650 Mg Suppository SC 650 mg Q4H PRN Administration Headache/Fever/Mild Pain (1-3) Allopurinol 200 mg 07/05/20 09:00 07/27/20 07:55 Allopurinol 100 Mg Tab PO Not Given DAILY [facility] Ascorbic Acid 1,000 mg 07/05/20 09:00 07/27/20 07:55 Ascorbic Acid 500 Mg Chewable Tablet PO Not Given DAILY [facility] Aspirin 81 mg 07/05/20 09:00 07/27/20 07:56 Aspirin 81 Mg Enteric Coated Tablet PO Not Given DAILY [facility] Atorvastatin Calcium 10 mg 07/04/20 21:00 07/26/20 19:37 Atorvastatin Calcium 10 Mg Tab PO Not Given HS [facility] Bisacodyl 5 mg 07/04/20 10:58 07/16/20 06:27 Bisacodyl 5 Mg Tab PO 5 mg DAILY PRN Administration Constipation Carvedilol 6.25 mg 07/20/20 17:00 07/27/20 07:55 Carvedilol 6.25 Mg Tab PO Not Given BID-[facility] Cholecalciferol 1,000 units 07/05/20 09:00 07/27/20 07:56 Cholecalciferol 1,000 Units (25 Mcg) Tab PO Not Given DAILY [facility] Clopidogrel Bisulfate 75 mg 07/05/20 09:00 07/27/20 07:56 Clopidogrel Bisulfate 75 Mg Tab PO Not Given DAILY [facility] Dexamethasone 6 mg 07/20/20 09:00 07/27/20 07:57 Dexamethasone 4 Mg/Ml Vial SLOW IVP 6 mg DAILY [facility] Administration Enoxaparin Sodium 30 mg 07/25/20 09:00 07/27/20 07:57 Enoxaparin Sodium 30 Mg/0.3 Ml Syringe SC 30 mg 0900 [facility] Administration Insulin Glargine 40 units/ 0.4 mls @ 0 mls/hr 07/21/20 09:00 07/27/20 07:57 Miscellaneous Medication SC 0.4 mls QAM [facility] Administration Dextrose/Water 1,000 mls @ 50 mls/hr 07/26/20 11:45 07/27/20 08:04 D5w IV 1,000 mls .Q20H [facility] Administration Insulin Human Regular 0 units 07/27/20 07:23 07/27/20 11:24 Insulin Regular 300 Units/3 Ml Vial SC 11 unit .AGGRESSIVE SLIDING PRN Administration Aggressive Correctional Scale Levothyroxine Sodium 50 mcg 07/05/20 06:00 07/27/20 05:44 Levothyroxine Sodium 50 Mcg Tab PO Not Given 0600 [facility] Magnesium Oxide 250 mg 07/05/20 09:00 07/27/20 07:56 Magnesium Oxide 250 Mg Tab PO Not Given DAILY [facility] Nystatin 1 gm 07/04/20 10:59 07/20/20 09:45 Nystatin Powder 15 Gm Bot TOP 1 gm BID PRN Administration Topical Irritations Ondansetron HCl 4 mg 07/03/20 15:27 07/05/20 02:02 Ondansetron Pf 4 Mg/2 Ml Vial IVP 4 mg Q6H PRN Administration Nausea/Vomiting Pantoprazole Sodium 40 mg 07/05/20 09:00 07/27/20 07:56 Pantoprazole 40 Mg Tab PO Not Given DAILY [facility] Sodium Chloride 10 ml 07/06/20 09:00 07/27/20 07:56 Flush - Normal Saline 10 Ml Syringe IVF Not Given Q12HR [facility] Zinc Sulfate 220 mg 07/04/20 21:00 07/27/20 07:56 Zinc Sulfate 220 Mg Cap PO Not Given BID [facility] - Exam General Appearance: NAD Eye: PERRL ENT: normocephalic atraumatic Neck: supple Heart: RRR Respiratory: rhonchi Gastrointestinal: soft, non-tender Extremities: no cyanosis Skin: normal turgor Psychiatric: normal affect Hosp A/P - Plan The patient is unfortunate 69 years old -[place] female who has significant past medical history of diabetes type 2, CKD, hypertension, CAD who was sent from inpatient rehab facility for short of breath and hypoxia. Acute hypoxic respiratory failure secondary to COVID-19 pneumonia - pt remains on HiFlo --Status post convalescent plasma, continue Decadron. O2 support, wean as tolerated --Appreciate input from ID. I have discussed the code status again with pt and family, cont full code for now --cont supportive cares. will start her on TPN COVID-19 pneumonia --Management as above Acute on CKD stage IV --Continue gentle IV fluid hydration as per nephrology Hypernatremia --will change IVF to D5, follow BMP VRE UTI --Discussed with ID, likely due to colonization. Monitor CAD --cont dual antiplatelet therapy, beta-kathleen Diabetes type 2 --cont Lantus, ISS. Monitor BG Hypothyroidism --cont Levothyroxin Legally Blind --supportive cares DVT ppx: Renal dose Lovenox GI ppx: PPI Code Status: Full code Anticipated Dispo: Likely back rehab when medically ready
--- NOTE | 2020-07-27 17:12 | RAD ---
XR Chest 1 View History: Line placement Comparison: Radiograph July 24, 2020 Findings: Left-sided subclavian central venous catheter is in place with tip near the inferior SVC. N o pneumothorax. Extensive airspace opacities have progressed. Heart size is enlarged. No significant pleural effusion . No acute osseous abnormality. Impression: 1. Uncomplicated placement of the central venous catheter. 2. Worsening airspace consolidation.
[2020-07-27] MEDS: Atorvastatin Calcium 10 MG TAB PO SCH (21:04)
[2020-07-27 21:49] LABS: INR-International Normal Ratio 1.3; PTT 29.2 sec (22.9-36.1); Prothrombin Time 16.4 sec (12.0-14.7)
[2020-07-27 21:55] LABS: ALT (SGPT) 19 U/L (8-55); AST (SGOT) 16 U/L (5-34); Albumin 2.2 g/dL (3.4-4.8); Alkaline Phosphatase 88 U/L (40-110); Anion Gap 14 mmol/L (10-20); Bilirubin, Total 0.9 mg/dL (0.2-1.2); Calc. Creatinine Clearance 46 mL/min (70-130); Calcium 8.8 mg/dL (7.8-10.44); Carbon Dioxide 27 mmol/L (23-31); Cardiac Risk 2.8 (Less than 4.5); Chloride 112 mmol/L (98-107); Cholesterol 88 mg/dl (< 200 Desired); Glucose 233 mg/dL (80-115); HDL Cholesterol 31 mg/dL (>60 Neg Risk); LDL Cholesterol, Calculated 32 mg/dL; Magnesium 2.3 mg/dL (1.6-2.6); Phosphorus 2.9 mg/dL (2.3-4.7); Potassium 3.5 mmol/L (3.5-5.1); Protein, Total 6.2 g/dL (6.0-8.3); Sodium 149 mmol/L (136-145); Triglycerides 124 mg/dL (Less than 150)
[2020-07-27 22:06] LABS: BUN (Urea Nitrogen) 131 mg/dL (9.8-20.1)
[2020-07-27] MEDS ORDERED: Dextrose 5% in Water 1,000 ML IV SCH (23:45)
[2020-07-28 04:51] LABS: #Lymphocytes 0.2 thou/uL (1.20-3.40); #Monocytes 0.2 thou/uL (0.11-0.59); #Neutrophils 2.9 thou/uL (1.40-6.50); %Eosinophils 0.1 % (0.0-10.0); %Lymphocytes 5.5 % (21.0-51.0); %Neutrophils 87.4 % (42.0-75.0); Hemoglobin 9.8 g/dL (12.0-16.0); Mean Corpuscular HGB CONC 29.9 g/dL (32.0-36.0); Mean Corpuscular Hemoglobin 25.7 pg (27.0-31.0); Mean Corpuscular Volume 85.7 fL (78.0-98.0); Mean Platelet Volume 8.5 fL (7.4-10.4); Platelet Count 72 thou/uL (130-400); RBC Distribution Width 18.7 % (11.5-14.5); White Blood Cell (WBC) Count 3.3 thou/uL (4.8-10.8)
[2020-07-28 05:01] LABS: Phosphorus 3.1 mg/dL (2.3-4.7)
[2020-07-28 05:06] LABS: ALT (SGPT) 18 U/L (8-55); AST (SGOT) 18 U/L (5-34); Albumin 2.1 g/dL (3.4-4.8); Alkaline Phosphatase 91 U/L (40-110); Anion Gap 16 mmol/L (10-20); CRP (Inflammatory) 16.67 mg/dL (= or < 0.5); Calc. Creatinine Clearance 47 mL/min (70-130); Calcium 8.8 mg/dL (7.8-10.44); Carbon Dioxide 26 mmol/L (23-31); Cardiac Risk 2.7 (Less than 4.5); Chloride 113 mmol/L (98-107); Cholesterol 89 mg/dl (< 200 Desired); Globulin 4.1 g/dL (2.4-3.5); Glucose 221 mg/dL (80-115); HDL Cholesterol 33 mg/dL (>60 Neg Risk); LDL Cholesterol, Calculated 32 mg/dL; Magnesium 2.2 mg/dL (1.6-2.6); Potassium 3.6 mmol/L (3.5-5.1); Protein, Total 6.2 g/dL (6.0-8.3); Sodium 151 mmol/L (136-145); Triglycerides 118 mg/dL (Less than 150)
[2020-07-28 05:19] LABS: BUN (Urea Nitrogen) 124 mg/dL (9.8-20.1)
[2020-07-28] MEDS: Levothyroxine Sodium 50 MCG TAB PO SCH (05:20)
[2020-07-28] MEDS: Insulin Regular 300 UNITS/3 ML VIAL SC PRN ×3 (05:29→18:30)
--- NOTE | 2020-07-28 08:31 | OP ---
DATE OF PROCEDURE: 07/28/2020 PREOPERATIVE DIAGNOSIS: COVID-19 pneumonia. POSTOPERATIVE DIAGNOSIS: COVID-19 pneumonia. PROCEDURE PERFORMED: Placement of left subclavian triple-lumen central venous catheter. INDICATIONS FOR PROCEDURE: A 69-year-old woman admitted with COVID-19 pneumonia, who is on noninvasive mechanical ventilator support. I was asked to place a central venous catheter for a total parenteral nutritional supplementation. DESCRIPTION OF PROCEDURE: Informed consent was obtained from the patient's family, following which the patient was placed in supine position. Left chest wall sterilely prepped and draped in usual fashion. The skin below the left clavicle was anesthetized with 1% lidocaine. Left subclavian vein was cannulated with an 18-gauge introducer needle returning dark venous blood. Stab incision was made adjacent to the guidewire using 11 scalpel. Dilator was passed over the guidewire dilating the subcutaneous tissues. Dilator was removed and a triple-lumen central venous catheter was advanced over the guidewire and placed in the left subclavian vein without resistance stopping at the 18 cm joby. Guidewire was removed. Dark venous blood was aspirated from all three ports, which were individually flushed with saline. Catheter was secured to anterior chest wall using 3-0 silk suture. Sterile dressings were applied. Portable chest x-ray was obtained confirming proper placement and no pneumothorax present. Job ID: [id number]
[2020-07-28] MEDS: Enoxaparin Sodium 30 MG/0.3 ML SYRINGE SC SCH (10:00)
[2020-07-28] MEDS: Dexamethasone 4 mg/ml Vial SLOW IVP SCH (10:00)
[2020-07-28] MEDS: Magnesium Oxide 250 MG TAB PO SCH (10:01)
[2020-07-28] MEDS: Insulin Glargine 40 UNITS in Pre-Filled Syringe 1 EACH SC SCH (10:01)
[2020-07-28] MEDS: Clopidogrel Bisulfate 75 MG TAB PO SCH (10:01)
[2020-07-28] MEDS: Cholecalciferol 1,000 UNITS (25 MCG) TAB PO SCH (10:02)
[2020-07-28] MEDS: Allopurinol 100 MG TAB PO SCH (10:02)
[2020-07-28] MEDS: Ascorbic Acid 500 mg Chewable Tablet PO SCH (10:02)
[2020-07-28] MEDS: Carvedilol 6.25 MG TAB PO SCH ×2 (10:02→17:33)
[2020-07-28] MEDS: Aspirin 81 mg Enteric Coated Tablet PO SCH (10:02)
[2020-07-28] MEDS: Zinc Sulfate 220 MG CAP PO SCH (10:03)
[2020-07-28] MEDS ORDERED: SODIUM ACETATE IV SCH (14:00)
[2020-07-28] MEDS ORDERED: SODIUM CHLORIDE IV SCH (14:00)
[2020-07-28] MEDS ORDERED: POTASSIUM CHLORIDE IV SCH (14:00)
[2020-07-28] MEDS ORDERED: [UNRECOGNIZED DRUG - OTHER] IV SCH (14:00)
--- NOTE | 2020-07-28 15:42 | PDOC.PALPN ---
Palliative Progress Note - Subjective On highflow Ox. Isolation has been removed from Covid. Triple lumen left subclavian placed today for parenteral nutrition secondary to pronounced dysphagia and aspiration risk. Patient was sleeping on my arrival, pleasant however states she feels poorly, and requested to "not visit". Review of records indicate patient refused PT today. Poor review of systems secondary to patient lethargy. - Objective Vital Signs: Vital Signs - Most Recent Temp Pulse Resp BP Pulse Ox 97.8 F 89 20 106/55 L 96 07/28/20 12:38 07/28/20 12:38 07/28/20 12:38 07/28/20 12:38 07/28/20 12:38 - Physical Exam Constitutional: ill appearing HEENT: moist MMs Respiratory: unlabored breathing, diminished lung sound Deviation from normal: mildly adventicious Cardiovascular: RRR Gastrointestinal: soft, non-tender, incontinent Genitourinary: incontinent Musculoskeletal: diffuse muscle atrophy Neurology: moves all 4 limbs, no focal deficits Skin: cap refill <2 seconds Deviation from normal: sacral wound as per photo Psychiatric: normal affect - Assessment (1) Palliative care encounter Code(s): Z51.5 - ENCOUNTER FOR PALLIATIVE CARE Current Visit: Yes Status: Acute (2) Acute respiratory failure with hypoxia Code(s): J96.01 - ACUTE RESPIRATORY FAILURE WITH HYPOXIA Current Visit: Yes Status: Acute (3) Pneumonia due to COVID-19 virus Code(s): U07.1 - COVID-19; J12.89 - OTHER VIRAL PNEUMONIA Current Visit: Yes Status: Acute (4) Obesity (BMI 30.0-34.9) Code(s): E66.9 - OBESITY, UNSPECIFIED Current Visit: Yes Status: Chronic (5) Diabetes mellitus Code(s): E11.9 - TYPE 2 DIABETES MELLITUS WITHOUT COMPLICATIONS Current Visit: No Status: Active (6) Acute on chronic systolic (congestive) heart failure Code(s): I50.23 - ACUTE ON CHRONIC SYSTOLIC (CONGESTIVE) HEART FAILURE Current Visit: No Status: Acute (7) Physical deconditioning Code(s): R53.81 - OTHER MALAISE Current Visit: No Status: Acute (8) Blindness - both eyes Code(s): H54.0 - BLINDNESS, BOTH EYES * DO NOT USE * Current Visit: No Status: Chronic - Plan Plan: Palliative care has been in contact with patient family. Isolation precautions related to Covid removed *One family member to come to visit 07/29/2020 *Family confirms understanding of poor prognosis *Will revisit Goal of care and resuscitation status with family 07/29/2020 at in person visit Please refer to palliative care notes in note section. [30] minutes spent on this encounter with >50% of the time in counseling and coordination of care. - ROS Non Response: due to mental status Constitutional: lethargic, weakness
--- NOTE | 2020-07-28 16:02 | PDOC.HOSPP ---
- Subjective Subjective: no significant changes. Complaint tiredness. Patient to plan to start on TPN around [address] Walden placed a central line. Patient remains on high flow with a rate of 40, FiO2 56. Renal function has been stable. - Objective Vital Signs & Weight: Vital Signs (12 hours) Temp Pulse Resp BP Pulse Ox 07/28/20 12:38 97.8 F 89 20 106/55 L 96 07/28/20 10:15 98 F 87 20 122/58 L 92 L 07/28/20 04:10 97.9 F 86 22 H 119/55 L 94 L Weight Admit Weight 305 lb 9.6 oz Weight 277 lb 12.8 oz I&O: 07/27/20 07/28/20 07/29/20 06:59 06:59 06:59 Intake Total 1200 1990 Output Total 400 875 Balance 800 1115 Result Diagrams: 07/28/20 04:31 07/28/20 04:31 Additional Labs: Accuchecks 07/28/20 07/27/20 07/27/20 11:11 21:17 16:26 POC Glucose 265 H 194 H 280 H Radiology Reviewed by me: Yes EKG Reviewed by me: Yes Hospitalist ROS - Medication Medications: Active Medications Generic Name Dose Route Start Last Admin Trade Name Freq PRN Reason Stop Dose Admin Acetaminophen 650 mg 07/03/20 15:27 07/23/20 18:53 Acetaminophen 325 Mg Tab PO 650 mg Q4H PRN Administration Headache/Fever/Mild Pain (1-3) Acetaminophen 650 mg 07/03/20 15:27 07/22/20 23:59 Acetaminophen 650 Mg Suppository NE 650 mg Q4H PRN Administration Headache/Fever/Mild Pain (1-3) Allopurinol 200 mg 07/05/20 09:00 07/28/20 10:02 Allopurinol 100 Mg Tab PO Not Given DAILY [facility] Ascorbic Acid 1,000 mg 07/05/20 09:00 07/28/20 10:02 Ascorbic Acid 500 Mg Chewable Tablet PO Not Given DAILY [facility] Aspirin 81 mg 07/05/20 09:00 07/28/20 10:02 Aspirin 81 Mg Enteric Coated Tablet PO Not Given DAILY [facility] Atorvastatin Calcium 10 mg 07/04/20 21:00 07/27/20 21:04 Atorvastatin Calcium 10 Mg Tab PO Not Given HS [facility] Bisacodyl 5 mg 07/04/20 10:58 07/16/20 06:27 Bisacodyl 5 Mg Tab PO 5 mg DAILY PRN Administration Constipation Carvedilol 6.25 mg 07/20/20 17:00 07/28/20 10:02 Carvedilol 6.25 Mg Tab PO Not Given BID-WM [facility] Cholecalciferol 1,000 units 07/05/20 09:00 07/28/20 10:02 Cholecalciferol 1,000 Units (25 Mcg) Tab PO Not Given DAILY [facility] Clopidogrel Bisulfate 75 mg 07/05/20 09:00 07/28/20 10:01 Clopidogrel Bisulfate 75 Mg Tab PO Not Given DAILY [facility] Dexamethasone 6 mg 07/20/20 09:00 07/28/20 10:00 Dexamethasone 4 Mg/Ml Vial SLOW IVP 6 mg DAILY [facility] Administration Enoxaparin Sodium 30 mg 07/25/20 09:00 07/28/20 10:00 Enoxaparin Sodium 30 Mg/0.3 Ml Syringe SC 30 mg 09 [facility] Administration Insulin Glargine 40 units/ 0.4 mls @ 0 mls/hr 07/21/20 09:00 07/28/20 10:01 Miscellaneous Medication SC 0.4 mls QAM [facility] Administration Insulin Human Regular 0 units 07/27/20 07:23 07/28/20 12:29 Insulin Regular 300 Units/3 Ml Vial SC 9 unit .AGGRESSIVE SLIDING PRN Administration Aggressive Correctional Scale Levothyroxine Sodium 50 mcg 07/05/20 06:00 07/28/20 05:20 Levothyroxine Sodium 50 Mcg Tab PO Not Given 0600 [facility] Magnesium Oxide 250 mg 07/05/20 09:00 07/28/20 10:01 Magnesium Oxide 250 Mg Tab PO Not Given DAILY [facility] Nystatin 1 gm 07/04/20 10:59 07/20/20 09:45 Nystatin Powder 15 Gm Bot TOP 1 gm BID PRN Administration Topical Irritations Ondansetron HCl 4 mg 07/03/20 15:27 07/05/20 02:02 Ondansetron Pf 4 Mg/2 Ml Vial IVP 4 mg Q6H PRN Administration Nausea/Vomiting Pantoprazole Sodium 40 mg 07/05/20 09:00 07/28/20 10:01 Pantoprazole 40 Mg Tab PO Not Given DAILY [facility] Sodium Chloride 10 ml 11/16/20 09:00 07/28/20 10:01 Flush - Normal Saline 10 Ml Syringe IVF Not Given Q12HR [facility] Zinc Sulfate 220 mg 07/04/20 21:00 07/28/20 10:03 Zinc Sulfate 220 Mg Cap PO Not Given BID [facility] - Exam General Appearance: NAD Eye: PERRL ENT: normocephalic atraumatic Neck: supple Heart: RRR Respiratory: rhonchi Gastrointestinal: soft Extremities: no cyanosis Skin: normal turgor Hosp A/P - Plan The patient is unfortunate 69 years old -[place] female who has significant past medical history of diabetes type 2, CKD, hypertension, CAD who was sent from inpatient rehab facility for short of breath and hypoxia. Acute hypoxic respiratory failure secondary to COVID-19 pneumonia - pt remains on HiFlo --Status post convalescent plasma, continue Decadron. O2 support, wean as jocelin ated --Appreciate input from ID. I have discussed the code status again with pt and family, cont full code for now --cont supportive cares. COVID-19 pneumonia --Management as above Acute on CKD stage IV --Continue gentle IV fluid hydration as per nephrology Hypernatremia --resolving, cont IVF, follow BMP VRE UTI --Discussed with ID, likely due to colonization. Monitor CAD --cont dual antiplatelet therapy, beta-kathleen Diabetes type 2 --cont Lantus, ISS. Monitor BG Hypothyroidism --cont Levothyroxin Legally Blind --supportive cares Poor PO intake --Pt was seen by SP, currently NPO, will start on TPN DVT ppx: Renal dose Lovenox GI ppx: PPI Code Status: Full code Anticipated Dispo: Likely back rehab when medically ready
[2020-07-28 16:05] LABS: Hemoglobin 9.7 g/dL (12.0-16.0); Platelet Count 63 thou/uL (130-400)
[2020-07-28] MEDS: SODIUM ACETATE IV SCH (17:11)
[2020-07-28] MEDS: POTASSIUM CHLORIDE IV SCH (17:11)
[2020-07-28] MEDS: [UNRECOGNIZED DRUG - OTHER] IV SCH (17:11)
[2020-07-28] MEDS: SODIUM CHLORIDE IV SCH (17:11)
--- NOTE | 2020-07-28 17:25 | PRG ---
DATE OF SERVICE: 07/28/2020 SUBJECTIVE: Patient was seen and examined at bedside and overnight events noted. Patient denies any shortness of breath or chest pain or palpitation. No history of nausea or vomiting or diarrhea or fever or chills or cramps. OBJECTIVE: GENERAL: This is well-built female in no apparent distress. VITAL SIGNS: Temperature 97.8. Heart Rate 89. Respiratory rate 20. Blood pressure 106/55. HEENT: Atraumatic, normocephalic. Oral mucosa is moist. NECK: Supple. CARDIOVASCULAR: S1, S2 heard. Rate and rhythm regular. RESPIRATORY: Clear to auscultation. GASTROINTESTINAL: Abdomen is soft. MUSCULOSKELETAL: No tenderness. No edema. DERMATOLOGIC: No skin rash. NEUROLOGIC: Alert and awake and oriented x3. No focal neurologic deficits. Moving all the extremities. PSYCHIATRIC: Mood and affect normal. LABORATORY DATA: Sodium 151, potassium 3.6, BUN is 124, creatinine is 2.3. ASSESSMENT AND PLAN: 1. Acute kidney injury on chronic kidney disease, stage 4, with slight improvement in renal labs. 2. Hypernatremia. Encourage free water and continue free water as tolerated. 3. Azotemia, getting better. 4. COVID-19 infection. 5. Hypokalemia, replace. 6. Edema, controlled. 7. Hypertension. 8. Hypoalbuminemia. Encourage protein intake. Labs are slowly getting better. We will follow. Continue free water as tolerated. Job ID: [id number]
[2020-07-29] MEDS: Insulin Regular 300 UNITS/3 ML VIAL SC PRN ×4 (01:26→19:09)
[2020-07-29] MEDS: Zinc Sulfate 220 MG CAP PO SCH ×2 (04:57→07:34)
[2020-07-29] MEDS: Atorvastatin Calcium 10 MG TAB PO SCH (04:57)
[2020-07-29] MEDS: Levothyroxine Sodium 50 MCG TAB PO SCH (04:58)
[2020-07-29 06:05] LABS: ALT (SGPT) 19 U/L (8-55); AST (SGOT) 16 U/L (5-34); Albumin 2.2 g/dL (3.4-4.8); Alkaline Phosphatase 95 U/L (40-110); Anion Gap 16 mmol/L (10-20); CRP (Inflammatory) 15.36 mg/dL (= or < 0.5); Calc. Creatinine Clearance 42 mL/min (70-130); Calcium 8.8 mg/dL (7.8-10.44); Carbon Dioxide 23 mmol/L (23-31); Cardiac Risk 2.8 (Less than 4.5); Chloride 110 mmol/L (98-107); Cholesterol 94 mg/dl (< 200 Desired); Globulin 4.3 g/dL (2.4-3.5); Glucose 438 mg/dL (80-115); HDL Cholesterol 34 mg/dL (>60 Neg Risk); LDL Cholesterol, Calculated 31 mg/dL; Magnesium 2.3 mg/dL (1.6-2.6); Potassium 3.8 mmol/L (3.5-5.1); Protein, Total 6.5 g/dL (6.0-8.3); Sodium 145 mmol/L (136-145); Triglycerides 146 mg/dL (Less than 150)
[2020-07-29 06:07] LABS: Phosphorus 3.9 mg/dL (2.3-4.7)
[2020-07-29 06:17] LABS: BUN (Urea Nitrogen) 128 mg/dL (9.8-20.1)
[2020-07-29 07:24] LABS: Hemoglobin 10.2 g/dL (12.0-16.0); Mean Corpuscular HGB CONC 29.7 g/dL (32.0-36.0); Mean Corpuscular Hemoglobin 26.2 pg (27.0-31.0); Mean Corpuscular Volume 88.4 fL (78.0-98.0); Mean Platelet Volume 11.9 fL (7.4-10.4); Platelet Count 73 thou/uL (130-400); RBC Distribution Width 19.1 % (11.5-14.5); White Blood Cell (WBC) Count 3.6 thou/uL (4.8-10.8)
[2020-07-29] MEDS: Carvedilol 6.25 MG TAB PO SCH ×2 (07:33→18:38)
[2020-07-29] MEDS: Aspirin 81 mg Enteric Coated Tablet PO SCH (07:33)
[2020-07-29] MEDS: Cholecalciferol 1,000 UNITS (25 MCG) TAB PO SCH (07:33)
[2020-07-29] MEDS: Ascorbic Acid 500 mg Chewable Tablet PO SCH (07:33)
[2020-07-29] MEDS: Allopurinol 100 MG TAB PO SCH (07:33)
[2020-07-29] MEDS: Magnesium Oxide 250 MG TAB PO SCH (07:34)
[2020-07-29] MEDS: Clopidogrel Bisulfate 75 MG TAB PO SCH (07:34)
[2020-07-29] MEDS: Enoxaparin Sodium 30 MG/0.3 ML SYRINGE SC SCH (10:09)
[2020-07-29] MEDS: Dexamethasone 4 mg/ml Vial SLOW IVP SCH (10:09)
[2020-07-29 11:40] LABS: Band 25 % (5-11); Hypochromia SLIGHT = 6-15 cells (100X) (0-5/hpf); Lymphocytes 4 % (21-51); MDiff Complete? YES; Monocytes 9 % (0-10); Neutrophil 62 % (42-75); Nucleated RBC 2 % (0); Ovalocytes SLIGHT = 2-5 cells (100X) (0-1/hpf); Platelet Morphology Comment Appears Decreased; Polychromasia SLIGHT = 2-3 cells (100X) (0-2/hpf)
--- NOTE | 2020-07-29 12:03 | PRG ---
DATE OF SERVICE: 07/29/2020 SUBJECTIVE: The patient is in COVID isolation. OBJECTIVE: VITAL SIGNS: Temperature 96.5, pulse 74, respiratory rate blood pressure 107/57. LABORATORY DATA: Potassium 3.8, BUN is 128, and creatinine is 2.5. ASSESSMENT AND PLAN: 1. Acute kidney injury on chronic kidney disease, stage 4, stable. 2. Hypernatremia, stable. 3. Azotemia. 4. COVID-19 infection. 5. Hypokalemia. 6. Edema. 7. . 8. Labs are stable. No acute indication for dialysis. Hypernatremia is also better. 9. Hyperglycemia. 10. We will follow. Job ID: [id number]
[2020-07-29] MEDS: Insulin Glargine 40 UNITS in Pre-Filled Syringe 1 EACH SC SCH (12:13)
[2020-07-29 12:42] VITALS: BMI 46.2
--- NOTE | 2020-07-29 14:26 | PDOC.HOSPP ---
- Subjective Subjective: Patient remains critically ill. She is still on high flow, unable to wean. She is more lethargic today. I have updated family member, her daughter, Kim on the phone. I also discussed the CODE STATUS, she has discussed with her brother, and the consensus was to change her CODE STATUS to DNR. Palliative care team is following. She would like to continue with current mgt right now, understand that her mom is critically ill and may not recovered - Objective Vital Signs & Weight: Vital Signs (12 hours) Temp Pulse Resp BP Pulse Ox 07/29/20 11:45 99.2 F 73 32 H 136/62 92 L 07/29/20 10:06 92 L 07/29/20 09:15 96.5 F L 94 40 H 107/57 L 93 L 07/29/20 03:10 98.9 F 93 20 116/56 L 94 L Weight Admit Weight 305 lb 9.6 oz Weight 277 lb 12.8 oz I&O: 07/28/20 07/29/20 07/30/20 06:59 06:59 06:59 Intake Total 1990 1376.5 Output Total 875 650 Balance 1115 726.5 Result Diagrams: 07/29/20 04:48 07/29/20 04:48 Additional Labs: Accuchecks 07/29/20 07/29/20 07/28/20 11:36 00:44 18:13 POC Glucose 400 H 331 H 247 H Radiology Reviewed by me: Yes EKG Reviewed by me: Yes Hospitalist ROS - Medication Medications: Active Medications Generic Name Dose Route Start Last Admin Trade Name Freq PRN Reason Stop Dose Admin Acetaminophen 650 mg 07/03/20 15:27 07/23/20 18:53 Acetaminophen 325 Mg Tab PO 650 mg Q4H PRN Administration Headache/Fever/Mild Pain (1-3) Acetaminophen 650 mg 07/03/20 15:27 07/22/20 23:59 Acetaminophen 650 Mg Suppository [place] 650 mg Q4H PRN Administration Headache/Fever/Mild Pain (1-3) Allopurinol 200 mg 07/05/20 09:00 07/29/20 07:33 Allopurinol 100 Mg Tab PO Not Given DAILY [facility] Ascorbic Acid 1,000 mg 07/05/20 09:00 07/29/20 07:33 Ascorbic Acid 500 Mg Chewable Tablet PO Not Given DAILY [facility] Aspirin 81 mg 07/05/20 09:00 07/29/20 07:33 Aspirin 81 Mg Enteric Coated Tablet PO Not Given DAILY [facility] Atorvastatin Calcium 10 mg 07/04/20 21:00 07/29/20 04:57 Atorvastatin Calcium 10 Mg Tab PO Not Given HS [facility] Bisacodyl 5 mg 07/04/20 10:58 07/16/20 06:27 Bisacodyl 5 Mg Tab PO 5 mg DAILY PRN Administration Constipation Carvedilol 6.25 mg 07/20/20 17:00 07/29/20 07:33 Carvedilol 6.25 Mg Tab PO Not Given BID-WM [facility] Cholecalciferol 1,000 units 07/05/20 09:00 07/29/20 07:33 Cholecalciferol 1,000 Units (25 Mcg) Tab PO Not Given DAILY [facility] Clopidogrel Bisulfate 75 mg 07/05/20 09:00 07/29/20 07:34 Clopidogrel Bisulfate 75 Mg Tab PO Not Given DAILY [facility] Dexamethasone 6 mg 07/20/20 09:00 07/29/20 10:09 Dexamethasone 4 Mg/Ml Vial SLOW IVP 6 mg DAILY [facility] Administration Enoxaparin Sodium 30 mg 07/25/20 09:00 07/29/20 10:09 Enoxaparin Sodium 30 Mg/0.3 Ml Syringe SC 30 mg 0900 [facility] Administration Insulin Glargine 40 units/ 0.4 mls @ 0 mls/hr 07/21/20 09:00 07/29/20 12:13 Miscellaneous Medication SC 0.4 mls QAM [facility] Administration Sodium Acetate 30 meq/ Sodium 2,334.2021 mls @ 70 mls/hr 07/28/20 14:00 07/28/20 17:11 Chloride 20 meq/ Potassium IV 2,334.2021 mls Chloride 20 meq/ Potassium 1400 [facility] Administration Phosphate 30 mmol/ Magnesium Sulfate 10 meq/ Calcium Gluconate 10 meq/ Multivitamins 10 ml/ Chromium/ Copper/Manganese/Zinc 10 ml/ Amino Acids/Dextrose/ Fat Emulsion Intravenous Insulin Human Regular 0 units 07/27/20 07:23 07/29/20 12:14 Insulin Regular 300 Units/3 Ml Vial SC 13 unit .AGGRESSIVE SLIDING PRN Administration Aggressive Correctional Scale Levothyroxine Sodium 50 mcg 07/05/20 06:00 07/29/20 04:58 Levothyroxine Sodium 50 Mcg Tab PO Not Given 0600 [facility] Magnesium Oxide 250 mg 07/05/20 09:00 07/29/20 07:34 Magnesium Oxide 250 Mg Tab PO Not Given DAILY [facility] Nystatin 1 gm 07/04/20 10:59 07/20/20 09:45 Nystatin Powder 15 Gm Bot TOP 1 gm BID PRN Administration Topical Irritations Ondansetron HCl 4 mg 07/03/20 15:27 07/05/20 02:02 Ondansetron Pf 4 Mg/2 Ml Vial IVP 4 mg Q6H PRN Administration Nausea/Vomiting Pantoprazole Sodium 40 mg 07/05/20 09:00 07/29/20 07:34 Pantoprazole 40 Mg Tab PO Not Given DAILY [facility] Sodium Chloride 10 ml 07/06/20 09:00 07/29/20 07:37 Flush - Normal Saline 10 Ml Syringe IVF Not Given Q12HR [facility] Zinc Sulfate 220 mg 07/04/20 21:00 07/29/20 07:34 Zinc Sulfate 220 Mg Cap PO Not Given BID [facility] - Exam General Appearance: NAD, ill appearing Eye: PERRL ENT: normocephalic atraumatic Neck: supple Heart: RRR Respiratory: rhonchi Gastrointestinal: soft Extremities: no cyanosis Skin: normal turgor Neurological: cranial nerve grossly intact Musculoskeletal: generalized weakness Psychiatric: normal affect, normal behavior Hosp A/P - Plan The patient is unfortunate 69 years old -[place] female who has significant past medical history of diabetes type 2, CKD, hypertension, CAD who was sent from inpatient rehab facility for short of breath and hypoxia. Acute hypoxic respiratory failure secondary to COVID-19 pneumonia - pt remains on HiFlo --Status post convalescent plasma, continue Decadron. O2 support, wean as tolerated --Appreciate input from ID. I have discussed the code status again with pt and family, changed to DNR --cont supportive cares. Palliative care team is following COVID-19 pneumonia --Management as above Acute on CKD stage IV --Continue gentle IV fluid hydration as per nephrology Hypernatremia --resolving, cont IVF, follow BMP VRE UTI --Discussed with ID, likely due to colonization. Monitor CAD --cont dual antiplatelet therapy, beta-kathleen Diabetes type 2 --cont Lantus, ISS. Monitor BG Hypothyroidism --cont Levothyroxin Legally Blind --supportive cares Poor PO intake --Pt was seen by SP, currently NPO, will start on TPN Physicial debility --cont PT DVT ppx: Renal dose Lovenox GI ppx: PPI Code Status: Full code Anticipated Dispo: Likely back rehab when medically ready
[2020-07-29] MEDS: SODIUM CHLORIDE IV SCH (18:38)
[2020-07-29] MEDS: [UNRECOGNIZED DRUG - OTHER] IV SCH (18:38)
[2020-07-29] MEDS: POTASSIUM CHLORIDE IV SCH (18:38)
[2020-07-29] MEDS: SODIUM ACETATE IV SCH (18:38)
[2020-07-29 19:55] VITALS: BP 118/51; TEMP 97.9
[2020-07-29] MEDS ORDERED: Morphine 2 MG/ML VIAL ONE (23:39)
[2020-07-29] MEDS ORDERED: Morphine 2 MG/ML VIAL SLOW IVP SCH (23:45)
[2020-07-30] MEDS: Atorvastatin Calcium 10 MG TAB PO SCH (01:08)
[2020-07-30] MEDS: Zinc Sulfate 220 MG CAP PO SCH (01:09)
--- NOTE | 2020-07-30 17:29 | PDOC.DS.DS ---
Provider - Provider Date of Admission: 07/03/20 14:59 Date of Discharge: 07/29/20 Admitting Provider: Raj Mckeon MD Consultations: Infectious Disease, Nephrology Primary Care Physician: Michael Vidal MD Course - Hospital Course Hospital Course: Patient is an unfortunate 69 years old -[place] female who has significant past medical histories of diabetes type 2 complicated with blindness, congestive heart failure systolic dysfunction with EF of 25%, hypertension, CKD stage IV, patient was initially admitted for CHF exacerbation. She was treated and subsequently discharged to inpatient rehab. She was subsequently sent back to the hospital, and admitted on July 03 due to worsening hypoxemia and dyspnea. She was tested Covid positive on the same day of admission. She required 5 L via nasal cannula on admission and subsequently on high flow. She also had worsening renal function, nephrology was consulted as well as ID. Patient was started on Decadron on admission as well as convalescent plasma was given. She is not a Candidate for remdesivir due to renal function. Unfortunately, despite maximum therapy, patient continued to deteriorate. Palliative care was consulted. I have discussed with family member, her daughter, subsequently change her CODE STATUS to DNR. She eventually on 07/29/2020 at 2349. Family member request notified. Resuscitation Status: 07/29/20 10:41 Resuscitation Status Routine Resuscitation Status: DNAR: NO Resuscitation Discussed with: Kim aviles - Labs Lab Results: 07/29/20 04:48 07/29/20 04:48 Abnormal Lab Results - Last 48 hrs 07/29/20 04:48: Chloride 110 H, BUN 128 H, Creatinine 2.59 H, C-Reactive Protein 15.36 H, Albumin 2.2 L, Globulin 4.3 H, Albumin/Globulin Ratio 0.5 L 07/29/20 04:48: WBC 3.6 L, RBC 3.90 L, Hgb 10.2 L, Hct 34.5 L, MCH 26.2 L, MCHC 29.7 L, RDW 19.1 H, Plt Count 73 L, MPV 11.9 H, Band Neuts % (Manual) 25 H, Lymphocytes % (Manual) 4 L, Nucleated RBCs # (Man) 2 H, Plt Morphology Comment Appears Decreased L 07/29/20 04:48: Prealbumin 6.0 L Microbiology - Entire Visit 07/12/20 14:52 Urine clean catch Urine Culture - Final Vanc-resistant Enterococcus 07/03/20 12:22 Venous blood - Right Hand Blood Culture - Final NO GROWTH IN 5 DAYS 07/03/20 12:48 Venous blood - Right Arm Blood Culture - Final NO GROWTH IN 5 DAYS 07/03/20 13:58 Urine Straight Catheter Urine Culture - Final Vanc-resistant Enterococcus - Physical Exam Vitals: Weight Admit Weight 305 lb 9.6 oz Weight 277 lb 12.8 oz Physical Exam: The patient was seen and examined on the day of discharge. Problem - Problem (1) Pneumonia due to COVID-19 virus Code(s): U07.1 - COVID-19; J12.89 - OTHER VIRAL PNEUMONIA Status: Acute (2) Acute respiratory failure with hypoxia Code(s): J96.01 - ACUTE RESPIRATORY FAILURE WITH HYPOXIA Status: Acute (3) Acute kidney injury superimposed on CKD Code(s): N17.9 - ACUTE KIDNEY FAILURE, UNSPECIFIED; N18.9 - CHRONIC KIDNEY DISEASE, UNSPECIFIED Status: Acute (4) Acute on chronic systolic (congestive) heart failure Code(s): I50.23 - ACUTE ON CHRONIC SYSTOLIC (CONGESTIVE) HEART FAILURE Status: Acute (5) Physical deconditioning Code(s): R53.81 - OTHER MALAISE Status: Acute (6) UTI (urinary tract infection) Status: Acute Qualifiers: Urinary tract infection type: acute cystitis Hematuria presence: without h ematuria Qualified Code(s): N30.00 - Acute cystitis without hematuria (7) Blindness - both eyes Code(s): H54.0 - BLINDNESS, BOTH EYES * DO NOT USE * Status: Chronic (8) Chronic kidney disease, stage 4 (severe) Code(s): N18.4 - CHRONIC KIDNEY DISEASE, STAGE 4 (SEVERE) Status: Chronic (9) Diabetes mellitus type 2 Code(s): E11.9 - TYPE 2 DIABETES MELLITUS WITHOUT COMPLICATIONS Status: Chronic (10) HTN (hypertension) Code(s): I10 - ESSENTIAL (PRIMARY) HYPERTENSION Status: Chronic Qualifiers: Hypertension type: essential hypertension Qualified Code(s): I10 - Essential (primary) hypertension (11) Morbid obesity with BMI of 50.0-59.9, adult Code(s): E66.01 - MORBID (SEVERE) OBESITY DUE TO EXCESS CALORIES; Z68.43 - BODY MASS INDEX [BMI] 50.0-59.9, ADULT Status: Chronic Plan - Discharge Medications Home Medications: Medication Instructions Recorded Confirmed Type Levothyroxine Sodium 50 mcg PO DAILY 11/02/13 07/04/20 History Pravastatin Sodium [Pravachol] 40 mg PO HS 11/02/13 07/04/20 History Bisacodyl [Dulcolax] 5 mg PO DAILY PRN 06/04/20 07/04/20 History Clopidogrel Bisulfate [Plavix] 75 mg PO DAILY 06/04/20 07/04/20 History Insulin NPL/Insulin Lispr [HumaLOG 10 unit SC BID 06/04/20 07/04/20 History Mix 75/25 Vial] Magnesium Oxide [Magnesium] 250 mg PO DAILY 06/04/20 07/04/20 History Pantoprazole Sodium [Protonix] 40 mg PO DAILY 06/04/20 07/04/20 History Aspirin [Aspirin EC] 81 mg PO DAILY 06/08/20 07/04/20 History Allopurinol [Zyloprim] 200 mg PO DAILY #15 tablet 06/11/20 07/04/20 Rx Carvedilol [Coreg] 6.25 mg PO BID-WM #60 tab 06/11/20 07/04/20 Rx Cholecalciferol [Vitamin D3] 1,000 unit PO DAILY 07/04/20 07/04/20 History Furosemide [Lasix] 40 mg PO 0900,1400 PRN 07/04/20 07/04/20 History Polyethylene Glycol 3350 17 g PO DAILY 07/04/20 07/04/20 History Zinc Sulfate 220 mg PO BID 07/04/20 07/04/20 History Allergies: No Known Drug Allergies Allergy (Verified 07/04/20 00:48) Per Patient Report - Follow up Plan Referrals: Michael Vidal MD [Primary Care Provider] - Disposition: Quality - Care Measures CORE MEASURES:: N/A
== END 2020-07-30 03:40 | disposition expired | DRG 177 ==
LOC: ERS 11:11 → ERHOLD 14:59 → 2SW 07-04 00:46
PROVIDERS: ADMIT Family Medicine; ATTEND Family Medicine
PROC: 8E0ZXY6 Isolation (ICD-10-PCS; principal; 2020-07-03)
PROC: XW13325 Transfusion of Convalescent Plasma (Nonautologous) into Peripheral Vein, Percutaneous Approach, New Technology Group 5 (ICD-10-PCS; 2020-07-03)
PROC: 02HV33Z Insertion of Infusion Device into Superior Vena Cava, Percutaneous Approach (ICD-10-PCS; 2020-07-28)
PROC: 3E0436Z Introduction of Nutritional Substance into Central Vein, Percutaneous Approach (ICD-10-PCS; 2020-07-28)
DX: U07.1 COVID-19 (principal); I50.23 Acute on chronic systolic (congestive) heart failure; J12.89 Other viral pneumonia; J96.01 Acute respiratory failure with hypoxia; N18.4 Chronic kidney disease, stage 4 (severe); I13.0 Hypertensive heart and chronic kidney disease with heart failure and stage 1 through stage 4 chronic kidney disease, or unspecified chronic kidney disease; N30.00 Acute cystitis without hematuria; Z68.43 Body mass index [BMI] 50.0-59.9, adult; N17.9 Acute kidney failure, unspecified; E87.0 Hyperosmolality and hypernatremia; E87.2 Acidosis; Z51.5 Encounter for palliative care; Z66 Do not resuscitate; E11.22 Type 2 diabetes mellitus with diabetic chronic kidney disease; E66.01 Morbid (severe) obesity due to excess calories; I25.10 Atherosclerotic heart disease of native coronary artery without angina pectoris; D63.1 Anemia in chronic kidney disease; D69.6 Thrombocytopenia, unspecified; H54.8 Legal blindness, as defined in USA; I25.5 Ischemic cardiomyopathy; E88.09 Other disorders of plasma-protein metabolism, not elsewhere classified; E03.9 Hypothyroidism, unspecified; E11.65 Type 2 diabetes mellitus with hyperglycemia; R13.10 Dysphagia, unspecified; E87.6 Hypokalemia; Z79.01 Long term (current) use of anticoagulants; Z79.890 Hormone replacement therapy; Z79.899 Other long term (current) drug therapy; Z79.4 Long term (current) use of insulin; Z90.49 Acquired absence of other specified parts of digestive tract; L89.512 Pressure ulcer of right ankle, stage 2
CPT/HCPCS: 36415; 36416; 36430; 36600; 51701; 71045; 80048; 80053; 80061; 81001; 81003; 81015; 82553; 82565; 82728; 82805; 83605; 83735; 83880; 84100; 84134; 84443; 84484; 85014; 85018; 85025; 85049; 85379; 85610; 85730; 86140; 86850; 86900; 86901; 87040; 87077; 87086; 87186; 93005; 94664; 94760; 96374; 96375; J0696; J1100; J1650; J1815; J1940; J2001; J2270; J2405; J3475; J3480; J3490; P9017